=== PATIENT | male | born 1975 | race Caucasian/White ===

== ENCOUNTER 2020-09-18 07:53 | Outpatient (RCR) | payer OTHER, SELFPAY | END 2020-11-06 07:42 | disposition home or self-care (01) | LOC: HO.WCC 07:53 | PROVIDERS: Visit Provider Surgery | DX: T23.231A Burn of second degree of multiple right fingers (nail), not including thumb, initial encounter (principal); T31.0 Burns involving less than 10% of body surface; E11.9 Type 2 diabetes mellitus without complications; Z79.01 Long term (current) use of anticoagulants; Z79.84 Long term (current) use of oral hypoglycemic drugs; Z79.899 Other long term (current) drug therapy | CPT/HCPCS: 16020; 97597; 99202; 99212; 99213; 99214 ==

== ENCOUNTER 2021-01-06 08:08 | Outpatient (RCR) | payer OTHER, SELFPAY | END 2021-01-16 11:05 | disposition home or self-care (01) | LOC: HO.WCC 08:08 | PROVIDERS: Visit Provider Physician Assistant | DX: Z09 Encounter for follow-up examination after completed treatment for conditions other than malignant neoplasm (principal); I87.301 Chronic venous hypertension (idiopathic) without complications of right lower extremity; E11.40 Type 2 diabetes mellitus with diabetic neuropathy, unspecified; D68.62 Lupus anticoagulant syndrome; F17.210 Nicotine dependence, cigarettes, uncomplicated; Z89.512 Acquired absence of left leg below knee; Z89.421 Acquired absence of other right toe(s); Z89.021 Acquired absence of right finger(s); Z79.01 Long term (current) use of anticoagulants; Z86.718 Personal history of other venous thrombosis and embolism | CPT/HCPCS: 97597; 99212 ==

== ENCOUNTER 2022-03-03 13:04 | Outpatient (REF) | payer OTHER, SELFPAY ==
--- NOTE | ~2022-03-03 | MR_ITS ---
EXAMINATION: MRI FOOT WITHOUT AND WITH CONTRAST, RIGHT CLINICAL INFORMATION: Nonhealing wound. COMPARISON: Radiographs 01/28/2022. TECHNIQUE: MRI without and with intravenous administration of 10 mL of Gadavist is performed on the right foot on a 1.5 Olive MRI scanner. Image quality is degraded by patient motion artifact. FINDINGS: Postsurgical changes of transmetatarsal amputation. There is edema/enhancement of the stump with apparent ulceration distally. Soft tissue signal abnormality extends to the underlying 3rd metatarsal where there is a small erosion demonstrated on series 3, image 18, with underlying marrow edema and enhancement compatible with osteomyelitis. Marrow edema and enhancement of the distal 4th metatarsal is suspicious for osteomyelitis as well. Questionable minimal edema at the distal aspect of the 2nd metatarsal which is indeterminate. MR/MR foot RT wo/w con IMPRESSION: Probable soft tissue ulcer with underlying cellulitis at the stump with erosion and marrow changes compatible with osteomyelitis involving the distal 3rd metatarsal. Osteomyelitis is also suspected at the distal aspect of the 4th metatarsal. Cannot exclude mild osteomyelitis at the distal aspect of the 2nd metatarsal.
== END 2022-03-03 13:05 | disposition home or self-care (01) ==
LOC: HO.MRI 13:04
PROVIDERS: Visit Provider Physician Assistant
DX: E11.621 Type 2 diabetes mellitus with foot ulcer (principal); L97.512 Non-pressure chronic ulcer of other part of right foot with fat layer exposed
CPT/HCPCS: 73720; A9585

== ENCOUNTER → 2022-03-18 10:02 | Outpatient (BNVA) | payer OTHER, SELFPAY | PROVIDERS: Visit Provider Internal Medicine | DX: M86.9 Osteomyelitis, unspecified (principal); T87.89 Other complications of amputation stump; Z89.421 Acquired absence of other right toe(s) | CPT/HCPCS: 99202 ==

== ENCOUNTER 2022-03-31 11:29 | Outpatient (REF) | payer OTHER, SELFPAY ==
[2022-03-31 12:16] LABS: Hematocrit 50.9 % (42.0-52.0); Hemoglobin 16.5 g/dl (14.0-18.0); Mean Corpuscular HGB Conc 32.4 g/dl (31.0-36.0); Mean Corpuscular Hemoglobin 29.2 pg (27.0-33.0); Mean Corpuscular Volume 90.1 fL (80.0-98.0); Mean Platelet Volume 9.2 fL (9.4-12.4); Platelet Count 238 X10*3/uL (160-400); Red Blood Count 5.65 X10*6/uL (4.60-5.80); Red Cell Distribution Width 14.6 % (11.0-16.0); White Blood Count 9.3 X10*3/uL (4.8-10.8)
[2022-03-31 12:39] LABS: Alanine Aminotransferase 17 U/L (0-40); Alkaline Phosphatase 88 U/L (39-117); Aspartate Amino Transferase 13 U/L (5-37); Bilirubin Direct < 0.2 mg/dL (0.0-0.5); Bilirubin Total 0.4 mg/dL (0.0-1.0); Estimated Glomerular Filt Rate > 60; Total Protein 7.4 g/dL (6.5-8.0)
== END 2022-03-31 11:30 | disposition home or self-care (01) ==
LOC: HO.LAB 11:29
PROVIDERS: Visit Provider Internal Medicine
DX: M86.9 Osteomyelitis, unspecified (principal)
CPT/HCPCS: 36415; 80076; 82565; 85027

== ENCOUNTER 2022-04-02 07:56 | Outpatient (REF) | payer OTHER, SELFPAY | END 2022-04-02 07:57 | disposition home or self-care (01) | LOC: HO.MDS 07:56 | PROVIDERS: Visit Provider Internal Medicine | DX: Z45.2 Encounter for adjustment and management of vascular access device (principal); M86.9 Osteomyelitis, unspecified | CPT/HCPCS: 96365; J1335 ==

== ENCOUNTER 2022-04-02 08:02 | Outpatient (REF) | payer OTHER, SELFPAY ==
--- NOTE | 2022-04-02 11:56 | HO.PICC ---
PICC Line Insertion NPICC Diagnosis: Osteomyelitis right foot[] Indication: [usp antibiotics needed] Pertinent Labs: [reviewed] Technique: Following informed consent including risks, benefits and alternatives and using sterile technique including cap and mask, sterile gown, glove and drape, the [left] arm was prepped and draped in the usual sterile fashion of full barrier technique with CHG. Following completion of [place] Protocol the skin and soft tissues were anesthetized with 1% Lidocaine plain. Using ultrasound guidance, [left brachial] vein access was obtained twice by James Montez RN, but unable to pass guidewire. Left brachial vein access was obtained on second attempt by Lincoln Murillo RN. Over an 0.018 wire through peel-away sheath, a [5FR double lumen] PICC line was positioned. Catheter length is [50 CM] internal length, [0 CM] external length, for a total trimmed length of [50 CM]. The procedure was performed in [S272]. Tip verification was performed by Aggie Newby with Sherlock 3CG. Tip located in SVC. Ultrasound was used to document vein patency and for needle entry. A formal ultrasound picture and cardiac rhythm strip was recorded. [employer] has released the line for use and it is currently dressed with a StatLock, Tegaderm, and CHG disc. Verification has been performed for blood return and line patency. Arm Circumference: [33CM] Equipment: [Conjectur Power PICC Solo] Catheter Type: [5FR Double Lumen PICC] Lot #: [[id number]]
== END 2022-04-02 08:03 | disposition home or self-care (01) ==
LOC: HO.RADIR 08:02
PROVIDERS: Visit Provider Internal Medicine
DX: M86.9 Osteomyelitis, unspecified (principal)
CPT/HCPCS: 36573; C1751

== ENCOUNTER → 2022-04-08 10:04 | Outpatient (BNVA) | payer OTHER, SELFPAY | PROVIDERS: PCP Internal Medicine; Visit Provider Internal Medicine | DX: M86.9 Osteomyelitis, unspecified (principal) | CPT/HCPCS: 99212 ==

== ENCOUNTER 2022-04-10 16:25 | Outpatient (REF) | payer OTHER, SELFPAY ==
[2022-04-10 16:29] LABS: MANUAL DIFF FLAG NO
[2022-04-10 16:39] LABS: Basophils Absolute Auto 0.1 X10*3/uL (0.0-0.2); Eosinophils Absolute Auto 0.4 X10*3/uL (0.0-0.4); Eosinophils Percent Auto 3.7 % (0-4); Hematocrit 51.6 % (42.0-52.0); Hemoglobin 16.7 g/dl (14.0-18.0); Imm Gran Abs Auto 0.03 X10*3/uL (0.00-0.03); Imm Gran Pct Auto 0.3 % (0.0-0.4); Lymphocytes Absolute Auto 2.6 X10*3/uL (1.2-4.9); Lymphocytes Percent Auto 25.1 % (20-40); Mean Corpuscular HGB Conc 32.4 g/dl (31.0-36.0); Mean Corpuscular Hemoglobin 29.9 pg (27.0-33.0); Mean Corpuscular Volume 92.3 fL (80.0-98.0); Mean Platelet Volume 10.3 fL (9.4-12.4); Monocytes Absolute Auto 0.8 X10*3/uL (0.1-1.2); Monocytes Percent Auto 7.6 % (2-11); Neutrophils Absolute Auto 6.5 x10*3/uL (2.0-8.3); Neutrophils Percent Auto 62.3 % (45-73); Platelet Count 225 X10*3/uL (160-400); Red Blood Count 5.59 X10*6/uL (4.60-5.80); Red Cell Distribution Width 15.2 % (11.0-16.0); White Blood Count 10.5 X10*3/uL (4.8-10.8)
[2022-04-10 17:04] LABS: Blood Urea Nitrogen 16 mg/dL (9-16); Estimated Glomerular Filt Rate > 60
[2022-04-10 17:10] LABS: Erythrocyte Sedimentation Rate 19 MM/HR (0-15)
== END 2022-04-10 16:26 | disposition home or self-care (01) ==
LOC: HO.LNP 16:25
PROVIDERS: Visit Provider Internal Medicine
DX: M86.9 Osteomyelitis, unspecified (principal); T87.81 Dehiscence of amputation stump
CPT/HCPCS: 82565; 84520; 85025; 85652

== ENCOUNTER 2022-04-17 09:19 | Outpatient (REF) | payer OTHER, SELFPAY ==
[2022-04-17 09:26] LABS: MANUAL DIFF FLAG NO
[2022-04-17 09:30] LABS: Basophils Absolute Auto 0.1 X10*3/uL (0.0-0.2); Basophils Percent Auto 0.8 % (0-2); Eosinophils Absolute Auto 0.3 X10*3/uL (0.0-0.4); Eosinophils Percent Auto 3.8 % (0-4); Hematocrit 51.3 % (42.0-52.0); Hemoglobin 16.5 g/dl (14.0-18.0); Imm Gran Abs Auto 0.03 X10*3/uL (0.00-0.03); Imm Gran Pct Auto 0.3 % (0.0-0.4); Lymphocytes Absolute Auto 1.6 X10*3/uL (1.2-4.9); Lymphocytes Percent Auto 17.7 % (20-40); Mean Corpuscular HGB Conc 32.2 g/dl (31.0-36.0); Mean Corpuscular Hemoglobin 29.2 pg (27.0-33.0); Mean Corpuscular Volume 90.8 fL (80.0-98.0); Mean Platelet Volume 10.1 fL (9.4-12.4); Monocytes Absolute Auto 0.7 X10*3/uL (0.1-1.2); Monocytes Percent Auto 8.1 % (2-11); Neutrophils Absolute Auto 6.2 x10*3/uL (2.0-8.3); Neutrophils Percent Auto 69.3 % (45-73); Platelet Count 201 X10*3/uL (160-400); Red Blood Count 5.65 X10*6/uL (4.60-5.80); Red Cell Distribution Width 14.6 % (11.0-16.0); White Blood Count 8.9 X10*3/uL (4.8-10.8)
[2022-04-17 10:21] LABS: Erythrocyte Sedimentation Rate 19 MM/HR (0-15)
[2022-04-17 10:27] LABS: Blood Urea Nitrogen 15 mg/dL (9-16); Estimated Glomerular Filt Rate > 60
== END 2022-04-17 09:20 | disposition home or self-care (01) ==
LOC: HO.LNP 09:19
PROVIDERS: Visit Provider Internal Medicine
DX: M86.9 Osteomyelitis, unspecified (principal)
CPT/HCPCS: 82565; 84520; 85025; 85652

== ENCOUNTER → 2022-04-22 10:14 | Outpatient (BNVA) | payer OTHER, SELFPAY | PROVIDERS: Visit Provider Internal Medicine | DX: M86.9 Osteomyelitis, unspecified (principal) | CPT/HCPCS: 99212 ==

== ENCOUNTER 2022-04-24 15:40 | Outpatient (REF) | payer OTHER, SELFPAY ==
[2022-04-24 15:44] LABS: MANUAL DIFF FLAG NO
[2022-04-24 15:47] LABS: Basophils Absolute Auto 0.1 X10*3/uL (0.0-0.2); Basophils Percent Auto 0.6 % (0-2); Eosinophils Absolute Auto 0.4 X10*3/uL (0.0-0.4); Eosinophils Percent Auto 4.2 % (0-4); Hematocrit 49.5 % (42.0-52.0); Hemoglobin 15.9 g/dl (14.0-18.0); Imm Gran Abs Auto 0.02 X10*3/uL (0.00-0.03); Imm Gran Pct Auto 0.2 % (0.0-0.4); Lymphocytes Absolute Auto 1.7 X10*3/uL (1.2-4.9); Lymphocytes Percent Auto 20.6 % (20-40); Mean Corpuscular HGB Conc 32.1 g/dl (31.0-36.0); Mean Corpuscular Hemoglobin 29.2 pg (27.0-33.0); Mean Corpuscular Volume 90.8 fL (80.0-98.0); Mean Platelet Volume 9.9 fL (9.4-12.4); Monocytes Absolute Auto 0.7 X10*3/uL (0.1-1.2); Monocytes Percent Auto 8.6 % (2-11); Neutrophils Absolute Auto 5.5 x10*3/uL (2.0-8.3); Neutrophils Percent Auto 65.8 % (45-73); Platelet Count 212 X10*3/uL (160-400); Red Blood Count 5.45 X10*6/uL (4.60-5.80); Red Cell Distribution Width 14.9 % (11.0-16.0); White Blood Count 8.3 X10*3/uL (4.8-10.8)
[2022-04-24 16:25] LABS: Blood Urea Nitrogen 18 mg/dL (9-16); Estimated Glomerular Filt Rate > 60
[2022-04-24 16:45] LABS: Erythrocyte Sedimentation Rate 15 MM/HR (0-15)
== END 2022-04-24 15:41 | disposition home or self-care (01) ==
LOC: HO.HVNA 15:40
PROVIDERS: Visit Provider Internal Medicine
DX: M86.9 Osteomyelitis, unspecified (principal)
CPT/HCPCS: 36415; 82565; 84520; 85025; 85652

== ENCOUNTER 2022-05-01 12:47 | Outpatient (REF) | payer OTHER, SELFPAY ==
[2022-05-01 12:54] LABS: MANUAL DIFF FLAG NO
[2022-05-01 12:57] LABS: Basophils Absolute Auto 0.1 X10*3/uL (0.0-0.2); Basophils Percent Auto 0.6 % (0-2); Eosinophils Absolute Auto 0.3 X10*3/uL (0.0-0.4); Eosinophils Percent Auto 4.3 % (0-4); Hematocrit 50.6 % (42.0-52.0); Hemoglobin 16.4 g/dl (14.0-18.0); Imm Gran Abs Auto 0.02 X10*3/uL (0.00-0.03); Imm Gran Pct Auto 0.3 % (0.0-0.4); Lymphocytes Absolute Auto 1.6 X10*3/uL (1.2-4.9); Lymphocytes Percent Auto 20.1 % (20-40); Mean Corpuscular HGB Conc 32.4 g/dl (31.0-36.0); Mean Corpuscular Hemoglobin 29.3 pg (27.0-33.0); Mean Corpuscular Volume 90.4 fL (80.0-98.0); Mean Platelet Volume 10.2 fL (9.4-12.4); Monocytes Absolute Auto 0.7 X10*3/uL (0.1-1.2); Monocytes Percent Auto 8.9 % (2-11); Neutrophils Absolute Auto 5.2 x10*3/uL (2.0-8.3); Neutrophils Percent Auto 65.8 % (45-73); Platelet Count 205 X10*3/uL (160-400); Red Cell Distribution Width 14.9 % (11.0-16.0); White Blood Count 7.9 X10*3/uL (4.8-10.8)
[2022-05-01 13:38] LABS: Erythrocyte Sedimentation Rate 17 MM/HR (0-15)
[2022-05-01 13:40] LABS: Blood Urea Nitrogen 14 mg/dL (9-16); Estimated Glomerular Filt Rate > 60
== END 2022-05-01 12:48 | disposition home or self-care (01) ==
LOC: HO.HVNA 12:47
PROVIDERS: Visit Provider Internal Medicine
DX: M86.9 Osteomyelitis, unspecified (principal)
CPT/HCPCS: 36415; 82565; 84520; 85025; 85652

== ENCOUNTER → 2022-05-04 10:31 | Outpatient (BNVA) | payer OTHER, SELFPAY | PROVIDERS: Visit Provider Internal Medicine | DX: M86.9 Osteomyelitis, unspecified (principal) | CPT/HCPCS: 99212 ==

== ENCOUNTER 2022-05-08 15:33 | Outpatient (REF) | payer OTHER, SELFPAY ==
[2022-05-08 15:37] LABS: MANUAL DIFF FLAG NO
[2022-05-08 15:51] LABS: Basophils Absolute Auto 0.1 X10*3/uL (0.0-0.2); Basophils Percent Auto 0.9 % (0-2); Eosinophils Absolute Auto 0.3 X10*3/uL (0.0-0.4); Eosinophils Percent Auto 3.5 % (0-4); Hematocrit 51.6 % (42.0-52.0); Hemoglobin 16.3 g/dl (14.0-18.0); Imm Gran Abs Auto 0.02 X10*3/uL (0.00-0.03); Imm Gran Pct Auto 0.2 % (0.0-0.4); Lymphocytes Absolute Auto 1.9 X10*3/uL (1.2-4.9); Lymphocytes Percent Auto 22.2 % (20-40); Mean Corpuscular HGB Conc 31.6 g/dl (31.0-36.0); Mean Corpuscular Hemoglobin 29.1 pg (27.0-33.0); Mean Platelet Volume 10.3 fL (9.4-12.4); Monocytes Absolute Auto 0.7 X10*3/uL (0.1-1.2); Monocytes Percent Auto 8.1 % (2-11); Neutrophils Absolute Auto 5.6 x10*3/uL (2.0-8.3); Neutrophils Percent Auto 65.1 % (45-73); Platelet Count 194 X10*3/uL (160-400); Red Blood Count 5.61 X10*6/uL (4.60-5.80); Red Cell Distribution Width 14.8 % (11.0-16.0); White Blood Count 8.5 X10*3/uL (4.8-10.8)
[2022-05-08 16:03] LABS: Blood Urea Nitrogen 12 mg/dL (9-16); Estimated Glomerular Filt Rate > 60
[2022-05-08 16:49] LABS: Erythrocyte Sedimentation Rate 14 MM/HR (0-15)
== END 2022-05-08 15:34 | disposition home or self-care (01) ==
LOC: HO.HVNA 15:33
PROVIDERS: Visit Provider Internal Medicine
DX: T87.81 Dehiscence of amputation stump (principal)
CPT/HCPCS: 36415; 82565; 84520; 85025; 85652

== ENCOUNTER → 2022-05-25 13:02 | Outpatient (BNVA) | payer OTHER, SELFPAY | PROVIDERS: Visit Provider Internal Medicine | DX: M86.9 Osteomyelitis, unspecified (principal) | CPT/HCPCS: 99212 ==

== ENCOUNTER 2023-01-19 08:11 | Inpatient (IN) | payer OTHER, SELFPAY ==
[2023-01-19] VITALS (8 sets, daily range): BP systolic 113–144; BP diastolic 56–74; PULSE 81–101; RESP 17–20; TEMP 36.8–38; O2SAT 93–100; BMI 39.1
--- NOTE | ~2023-01-19 | CT_ITS ---
EXAMINATION: CT CERVICAL SPINE WITH CONTRAST CLINICAL INFORMATION: Bacteremia. Evaluate for infection. COMPARISON: There are no prior studies available for comparison at time of dictation. TECHNIQUE: A postcontrast axial CT scan of the cervical spine was obtained. Coronal and sagittal reformatted images were generated at the acquisition workstation. Intravenous contrast: 80 mL of Omnipaque 350. This CT examination was performed using dose optimization techniques as appropriate, variously including the following: *Automated exposure control *Adjustment of mA and/or kV according to patient size (this includes techniques or standardized protocols for targeted exams where dose is matched to indication/reason for exam; i.e. extremities or head) *Use of iterative reconstruction technique DLP: 891 mGy-cm FINDINGS: VERTEBRAL BODIES AND PARASPINAL SOFT TISSUES: There is reversal of the cervical lordosis at C5-C6. There are sequelae of ACDF procedures at C4-C5, C5-C6 and C6-C7. There is good osseous fusion at the intervertebral disc devices at these levels. Vertebral body heights are maintained, and no fractures are demonstrated. There are extensive marginal osteophytes anteriorly at C2 through C4. The paravertebral soft tissues are unremarkable. The thyroid gland is normal in size. The visualized lung apices are well-aerated. The prevertebral soft tissues are unremarkable. There is no abnormal enhancement in the paravertebral soft tissues. SPINAL LEVELS: There is no abnormal epidural enhancement. C2-C3: The facet joints appear normal bilaterally. There is mild ossification of the posterior longitudinal ligament. There is a broad-based posterior disc protrusion without spinal cord compression or central stenosis. The neural foramina appear patent bilaterally. C3-C4: The facet joints appear normal. There is a small right paracentral osteophytic spur which distorts the ventral thecal sac and may have mild mass effect on the spinal cord. There is mild central stenosis. There are uncovertebral osteophytes and there is moderate right and mild left foraminal narrowing. C4-C5: There is mild right facet arthropathy. Posterior vertebral body contours appear normal, but there is mild distortion of the ventral thecal sac without significant central stenosis. There are uncovertebral osteophytes and there is severe right and moderate left foraminal narrowing. C5-C6: There is mild left facet arthropathy. There is a posterior disc osteophyte complex with a prominent spur to the right of midline which likely has some mass effect on the ventral thecal sac. There is mild to moderate central stenosis. There are uncovertebral osteophytes and there is mild bilateral foraminal narrowing. C6-C7: The facet joints appear normal. There is a posterior disc osteophyte complex which is most prominent on the left with distortion of the ventral thecal sac, and there may be some mass effect on the spinal cord. There is mild central stenosis. There are uncovertebral osteophytes and there is moderate bilateral foraminal narrowing. C7-T1: The facet joints appear normal. There is a posterior disc osteophyte complex which is most prominent to the right of midline but there is no cord compression or central stenosis. There are uncovertebral osteophytes and there is severe left and mild right foraminal narrowing. CT/CT cervical spine w IV con IMPRESSION: 1. There are sequelae of ACDF procedures at C4-C5, C5-C6 and C6-C7. There is good osseous fusion of the intervertebral disc devices at these levels. There is no abnormal epidural enhancement. 2. There are no acute fractures or subluxations. There is multilevel spondylosis and facet arthropathy contributing to central stenosis and foraminal narrowing. 3. There is no abnormal enhancement in the paravertebral soft tissues or within the spinal canal. 4. There is severe right and moderate left foraminal narrowing at C4-C5. 5. At C5-C6 there is a posterior disc osteophyte complex with a prominent spur to the right of midline. There is mild to moderate central stenosis. There is mild bilateral foraminal narrowing. 6. At C6-C7 there is a posterior disc osteophyte complex which is most prominent on the left. There may be some mass effect on the spinal cord. There is mild central stenosis. There is moderate bilateral foraminal narrowing. 7. At C7-T1 there is a posterior disc osteophyte complex which is most prominent to the right of midline but there is no central stenosis or cord compression. There is severe left and mild right foraminal narrowing.
--- NOTE | ~2023-01-19 | XR_ITS ---
EXAMINATION: XR FOOT, RIGHT CLINICAL INFORMATION: Wound. Concern for osteomyelitis. COMPARISON: 01/28/2022 TECHNIQUE: AP, lateral, and oblique views of the right foot. FINDINGS: Status post transmetatarsal amputation. Soft tissue swelling at the stump with gas noted. There is irregularity of the lateral remaining metatarsals, concerning for progressive erosion when compared to prior. Prominent heel spurs. XR/XR foot RT 2V IMPRESSION: Status post transmetatarsal amputation with soft tissue swelling and gas. Irregularity of the lateral remaining metatarsals is concerning for progressive erosion when compared to prior. This could be associated with osteomyelitis.
--- NOTE | 2023-01-19 08:39 | ED_ITS ---
HPI - General Adult General Chief complaint: Wound/Laceration Stated complaint: Dizziness/Body aches/Chills Time Seen by Provider: 01/19/23 08:38 Source: patient Mode of arrival: ambulatory Limitations: no limitations History of Present Illness HPI narrative: Patient is a 47 year old assigned male at with a history of diabetes, left BTK amputation, a right foot amputation, and a chronic non-healing right foot stump wound presenting to the emergency department today feeling generally unwell. Patient states that he has had intermittent fevers and body aches for the last few days. Patient states that he follows with our wound center for this wound and they are currently doing wet to dry dressing changes. Patient states that he has not been on antibiotics for this for awhile. Patient denies any current dizziness, lightheadedness, abdominal pain, nausea, vomiting, blurry vision, double vision, loss of vision, chest pain, difficulty breathing, shortness of breath, back pain, night sweats, pain with urination, increased urinary frequency, increased urinary urgency, blood in his urine or stool, syncope or a near syncopal episode, recent trauma or falls, bowel incontinence, bladder incontinence, bowel retention, bladder retention, or any other complaints at this time. Onset (ago): day(s) Location: right and lower extremity Radiation: non-radiation Severity: moderate Severity scale (1-10): 4 Relieving factors: none Exacerbating factors: none Associated symptoms: fever/chills Treatments prior to arrival: none Related Data Home Medications Medication Instructions Recorded Confirmed albuterol sulfate 90 mcg/actuation 1 inh inhalation QID 03/18/22 01/19/23 aerosol inhaler amlodipine 10 mg tablet 10 mg PO BEDTIME 03/18/22 01/19/23 dulaglutide 4.5 mg/0.5 mL 4.5 mg subcut WE 03/18/22 01/19/23 subcutaneous pen injector ([facility]) fenofibrate micronized 134 mg 134 mg PO DAILY 03/18/22 01/19/23 capsule insulin degludec 100 unit/mL (3 80 unit subcut BID 03/18/22 01/19/23 mL) subcutaneous pen (Tresiba FlexTouch U-100 insulin) lisinopril 40 mg tablet 40 mg PO BEDTIME 03/18/22 01/19/23 metformin 1,000 mg tablet 1,000 mg PO DAILY 03/18/22 01/19/23 montelukast 10 mg tablet 10 mg PO BEDTIME 03/18/22 01/19/23 rosuvastatin 20 mg tablet 20 mg PO BEDTIME 03/18/22 01/19/23 warfarin 10 mg tablet 10 mg PO MOWE@1800 03/18/22 01/19/23 insulin aspart U-100 100 unit/mL 0 sliding scale dose subcut TID 01/19/23 01/19/23 (3 mL) subcutaneous pen (Novolog FlexPen U-100 Insulin aspart) warfarin 10 mg tablet 15 mg PO SUTUTHFRSA@1800 01/19/23 01/19/23 Allergies Allergy/AdvReac Type Severity Reaction Status Date / Time No Known Allergies Allergy Verified 05/25/22 13:07 Review of Systems Constitutional: Constitutional: Reports no additional constitutional complaints, Reports body ache(s), Reports chills, Reports fever(s) and Denies ni ght sweats Eyes: Eyes: Reports no additional eye complaints, Denies blurry vision, Denies change in vision, Denies diplopia, Denies eye discharge, Denies loss of vision and Denies eye pain ENT: Denies dizziness Cardiovascular: Cardiovascular: Reports no additional cardiovascular complaints, Denies chest pain, Denies lightheadedness, Denies Loss of Consciousness and Denies dyspnea Respiratory: Respiratory: Reports no additional respiratory complaints and Denies dyspnea Gastrointestinal: Gastrointestinal: Reports no additional gastrointestinal complaints, Denies abdominal pain, Denies melena, Denies hematochezia, Denies change in bowel habits and Denies change in stool character Genitourinary: Genitourinary: Reports no additional male genitourinary complaints, Denies hematuria, Denies oliguria, Denies difficulty urinating, Denies dysuria, Denies urinary frequency, Denies urinary hesitancy, Denies urinary incontinence and Denies urinary urgency Musculoskeletal: Musculoskeletal: Reports no additional musculoskeletal complaints, Denies numbness and Denies tingling Comments: status post left BTK amputation of the left, status post foot amputation on the right with chronic non-healing wound Neurologic: Denies dizziness, Denies loss of vision, Denies numbness and Denies tingling Psychiatric: Psychiatric: Reports no additional psychiatric complaints Endocrine: Endocrine: Reports no additional endocrine complaints Hematologic/Lymphatic: Hematologic/Lymphatic: Reports no additional hematolo gic/lymphatic complaints Allergic/Immunologic: Allergic/Immunologic: Reports no additional allergic/immunologic complaints [facility] Past Medical History Attestation statement: The following information was validated with the patient. Source: old records reviewed and nursing notes reviewed Medical History Amputated finger Amputated toe of right foot Diabetes High cholesterol Hypertension Osteomyelitis Surgical History History of neck surgery Social History Social History Alcohol intake: never Smoked in Last 30 Days: Yes Use of substances other than those prescribed or required for medical reasons: No Advance Directives: No Advance Directives Information Provided: Yes Physical Exam ED Vital Signs: Vital Signs - 24 hr 01/19/23 08:27 01/19/23 09:16 01/19/23 10:49 Temperature 100.1 F 100.4 F 99.3 F Pulse Rate 101 H 97 86 Respiratory Rate 20 20 20 Blood Pressure 144/65 H 113/56 L 116/67 Pulse Oximetry 100 94 100 Oxygen Delivery Method Room Air Room Air Room Air 01/19/23 11:15 01/19/23 12:23 Temperature 99.2 F 98.3 F Pulse Rate 82 81 Respiratory Rate 18 20 Blood Pressure 114/65 136/68 Pulse Oximetry 96 93 Oxygen Delivery Method Room Air Room Air BMI result Body Mass Index 39.1 Const General: cooperative, no acute distress, alert and awake Nutritional Appearance: well nourished Orientation/consciousness: patient oriented x3 Limitations: no limitations [facility] Head: Yes normal to inspection and Yes atraumatic Ears: hearing grossly normal bilaterally and external ears normal General nose exam: Normal external nose present, no nasal discharge noted and no epistaxis Face and sinus: Yes normal facial exam, No abrasion and No laceration Mouth: Normal oral and palatal mucosa present, no drooling and no muffled voice Eyes General: appearance normal, both eyes and all related structures Periorbital: periorbital findings normal Eyelids: Yes eyelids normal Conjunctivae: conjunctivae normal Pupils: Equal, round and reactive pupils present EOM: EOMs intact bilaterally Neck Neck: Yes normal visual inspection, Yes full ROM and Yes no lymphadenopathy Chest Chest palpation & inspection: normal inspection of the chest Resp Effort & Inspection: normal respiratory effort and able to speak in complete sentences Auscultation: clear to auscultation bilaterally Cardio Rate: tachycardic Rhythm: regular rhythm GI Inspection: Yes normal to inspection Palpation (GI): Soft to palpation, not firm, nontender and no guarding Neuro General: patient oriented x3 and moves all extremities Cranial nerves: Yes Equal, round and reactive pupils present Cognition (Neuro): normal cognition Motor exam (neuro): 5/5 motor strength present throughout Sensory Exam: Normal double simultaneous stimulation for sensation Coordination: [id number] test normal Extrem Other: left BTK amputation, right foot amputation with chronic wound as pictured General: Yes capillary refill normal Psych Appearance: grossly normal Mental Status: mental status grossly normal Affect: normal affect Attitude: cooperative Thought process: Normal thought process present Thought content: Normal thought content present Insight: Good insight present (Psych) Medications Administered Discontinued Medications Generic Name Dose Route Start Last Admin Trade Name Freq PRN Reason Stop Dose Admin Acetaminophen 975 mg 01/19/23 08:41 01/19/23 09:34 Acetaminophen 325 Mg Tablet PO 01/19/23 08:42 975 mg ONCE ONE Administration Ceftriaxone Sodium 1 gm/ 50 mls @ 100 mls/hr 01/19/23 08:39 01/19/23 10:04 Sodium Chloride IV 01/19/23 09:08 Infused ONCE ONE Infusion Sodium Chloride 2,673 mls @ 2,673 mls/hr 01/19/23 08:55 01/19/23 10:48 Ns IV 01/19/23 09:54 Infused .Q1H STA Infusion Piperacillin Sod/Tazobactam 50 mls @ 100 mls/hr 01/19/23 11:13 01/19/23 12:09 Sod 3.375 gm/ Sodium Chloride IV 01/19/23 11:42 Infused ONCE ONE Infusion Vancomycin HCl 2,000 mg in 520 mls @ 260 mls/hr 01/19/23 11:30 01/19/23 12:49 Vancomycin/Ns IV 01/19/23 13:29 260 mls/hr ONCE ONE Administration Morphine Sulfate 4 mg 01/19/23 10:58 01/19/23 11:39 Morphine Sulfate 4 Mg/Ml Cartridge IVPUSH 01/19/23 10:59 4 mg ONCE ONE Administration Protocol Medical Decision Making Medical Decision Making MDM Narrative: Patient is a 47 year old assigned male at with a history of diabetes, left BTK amputation, and right mid foot amputation with chronic non-healing wound presenting to the emergency department today feeling generally unwell. Patient's physical exam was as pictured earlier in this chart. Patient was tachycardic, febrile, and clinically unwell. Patient's blood work showed an ESR of 77, NA of 128, calcium of 7.8, and CRP of 27.18. Patient's right foot x-ray showed progressive erosion consistent with osteomyelitis. Patient's clinical pr esentation is concerning for sepsis secondary to osteomyelitis. Patient was given broad spectrum antibiotics. Patient was given IV fluids per his ideal body weight given his BMI is greater than 30 kg/m2. I spoke to the hospitalist who agreed to admission. I explained my physical exam findings as well as all test results to the patient. I answered all questions asked by the patient. Patient verbalized agreement and understanding with this treatment plan and admission. Differential Diagnosis Differential Diagnoses: The differential diagnosis associated with the presentation includes sepsis, osteomyelitis Consult Healthcare Provider Management of the patient was discussed with: Hospitalist (agreed to admission) Lab Data [facility] Lab Attestation statement: I reviewed the patient's lab results. 01/19/23 08:56 01/19/23 08:56 Labs: Lab Results 01/19/23 01/19/23 01/19/23 Range/Units 08:56 08:56 08:56 WBC 10.5 (4.8-10.8) X10*3/uL RBC 4.70 (4.60-5.80) X10*6/uL Hgb 14.0 (14.0-18.0) g/dl Hct 40.8 L D (42.0-52.0) % MCV 86.8 (80.0-98.0) fL MCH 29.8 (27.0-33.0) pg MCHC 34.3 (31.0-36.0) g/dl RDW 13.8 (11.0-16.0) % Plt Count 216 (160-400) X10*3/uL MPV 9.5 (9.4-12.4) fL Immature Gran % (Auto) 0.4 (0.0-0.4) % Neut % (Auto) 80.7 H (45-73) % Lymph % (Auto) 6.8 L (20-40) % [place] % (Auto) 11.6 H (2-11) % Eos % (Auto) 0.1 (0-4) % Baso % (Auto) 0.4 (0-2) % Lymph # (Auto) 0.7 L (1.2-4.9) X10*3/uL [place] # (Auto) 1.2 (0.1-1.2) X10*3/uL Eos # (Auto) 0.0 (0.0-0.4) X10*3/uL Baso # (Auto) 0.0 (0.0-0.2) X10*3/uL Abs Immat Gran (auto) 0.04 H (0.00-0.03) X10*3/uL Absolute Neuts (auto) 8.5 H (2.0-8.3) x10*3/uL Absolute Nucleated RBC 0.000 (0.0-0.012) X10*3/uL Nucleated RBC % (auto) 0.0 (0.0-0.2) /100WBC ESR (0-15) MM/HR PT 31.8 H (10.0-13.1) SEC INR 2.7 H (0.9-1.1) Sodium 128 L (135-145) mmol/L Potassium 3.9 (3.3-5.1) mmol/L Chloride 97 (96-108) mmol/L Carbon Dioxide 21 L (22-29) mmol/L Anion Gap 14 (12-20) BUN 14 (9-16) mg/dL Creatinine 0.91 (0.5-1.4) mg/dL Estim Creat Clear Calc 159.1 Estimated GFR > 60 Random Glucose 120 H (60-115) mg/dL Lactic Acid (0.5-2.0) mmol/L Calcium 7.8 L D (8.4-10.2) mg/dL Total Bilirubin 0.7 (0.0-1.0) mg/dL AST 41 H (5-37) U/L ALT 33 (0-40) U/L Alkaline Phosphatase 77 (39-117) U/L C-Reactive Protein 27.18 H (< or = 0.50) mg/dL Total Protein 6.6 (6.5-8.0) g/dL Albumin 3.5 (3.5-5.0) g/dL Influenza Type A (PCR) (Negative) Influenza Type B (PCR) (Negative) RSV RNA Qual (PCR) (Negative) SARS-CoV-2 RNA (RT-PCR) (Negative) 01/19/23 01/19/23 01/19/23 Range/Units 08:56 08:56 08:59 WBC (4.8-10.8) X10*3/uL RBC (4.60-5.80) X10*6/uL Hgb (14.0-18.0) g/dl Hct (42.0-52.0) % MCV (80.0-98.0) fL MCH (27.0-33.0) pg MCHC (31.0-36.0) g/dl RDW (11.0-16.0) % Plt Count (160-400) X10*3/uL MPV (9.4-12.4) fL Immature Gran % (Auto) (0.0-0.4) % Neut % (Auto) (45-73) % Lymph % (Auto) (20-40) % [place] % (Auto) (2-11) % Eos % (Auto) (0-4) % Baso % (Auto) (0-2) % Lymph # (Auto) (1.2-4.9) X10*3/uL [place] # (Auto) (0.1-1.2) X10*3/uL Eos # (Auto) (0.0-0.4) X10*3/uL Baso # (Auto) (0.0-0.2) X10*3/uL Abs Immat Gran (auto) (0.00-0.03) X10*3/uL Absolute Neuts (auto) (2.0-8.3) x10*3/uL Absolute Nucleated RBC (0.0-0.012) X10*3/uL Nucleated RBC % (auto) (0.0-0.2) /100WBC ESR 77 H (0-15) MM/HR PT (10.0-13.1) SEC INR (0.9-1.1) Sodium (135-145) mmol/L Potassium (3.3-5.1) mmol/L Chloride (96-108) mmol/L Carbon Dioxide (22-29) mmol/L Anion Gap (12-20) BUN (9-16) mg/dL Creatinine (0.5-1.4) mg/dL Estim Creat Clear Calc Estimated GFR Random Glucose (60-115) mg/dL Lactic Acid 0.9 (0.5-2.0) mmol/L Calcium (8.4-10.2) mg/dL Total Bilirubin (0.0-1.0) mg/dL AST (5-37) U/L ALT (0-40) U/L Alkaline Phosphatase (39-117) U/L C-Reactive Protein (< or = 0.50) mg/dL Total Protein (6.5-8.0) g/dL Albumin (3.5-5.0) g/dL Influenza Type A (PCR) NEGATIVE (Negative) Influenza Type B (PCR) NEGATIVE (Negative) RSV RNA Qual (PCR) NEGATIVE (Negative) SARS-CoV-2 RNA (RT-PCR) NEGATIVE (Negative) Independent Interpretation I performed an independent interpretation of an: Plain X-Ray Interpretation: My interpretation is in agreement with the radiologist's impression of this imaging study. EXAMINATION: XR FOOT, RIGHT CLINICAL INFORMATION: Wound. Concern for osteomyelitis.? COMPARISON: 01/28/2022? TECHNIQUE: AP, lateral, and oblique views of the right foot. FINDINGS: Status post transmetatarsal amputation. Soft tissue swelling at the stump with gas noted. There is irregularity of the lateral remaining metatarsals, concerning for progressive erosion when compared to prior. Prominent heel spurs.? XR/XR foot RT 2V IMPRESSION: Status post transmetatarsal amputation with soft tissue swelling and gas. Irregularity of the lateral remaining metatarsals is concerning for progressive erosion when compared to prior. This could be associated with osteomyelitis. ? Dictated By: Ajith Mora MD Signed By: Electronically signed by Ajith Mora MD 01/19/23 1006 Chronic Conditions Patient?s care impacted by: Diabetes Critical Care Time Critical Care Time Critical Care Time: Yes Total Critical Care Time: 45 Attestation: I spent 45 minutes of Critical Care Time with this patient. This does not include time spent on separately reported billable procedures. Discharge Plan Discharge Clinical Impression: Osteomyelitis, Sepsis Patient Disposition: Admitted As Inpatient
[2023-01-19 09:16] LABS: MANUAL DIFF FLAG NO
[2023-01-19 09:17] LABS: Basophils Percent Auto 0.4 % (0-2); Eosinophils Percent Auto 0.1 % (0-4); Hematocrit 40.8 % (42.0-52.0); Imm Gran Abs Auto 0.04 X10*3/uL (0.00-0.03); Imm Gran Pct Auto 0.4 % (0.0-0.4); Lymphocytes Absolute Auto 0.7 X10*3/uL (1.2-4.9); Lymphocytes Percent Auto 6.8 % (20-40); Mean Corpuscular HGB Conc 34.3 g/dl (31.0-36.0); Mean Corpuscular Hemoglobin 29.8 pg (27.0-33.0); Mean Corpuscular Volume 86.8 fL (80.0-98.0); Mean Platelet Volume 9.5 fL (9.4-12.4); Monocytes Absolute Auto 1.2 X10*3/uL (0.1-1.2); Monocytes Percent Auto 11.6 % (2-11); Neutrophils Absolute Auto 8.5 x10*3/uL (2.0-8.3); Neutrophils Percent Auto 80.7 % (45-73); Platelet Count 216 X10*3/uL (160-400); Red Cell Distribution Width 13.8 % (11.0-16.0); White Blood Count 10.5 X10*3/uL (4.8-10.8)
[2023-01-19] MEDS: 0.9 % Sodium Chloride 2,673 ML 2673 ML IV (09:22)
[2023-01-19 09:24] LABS: INTERNATIONAL NORM RATIO 2.7 (0.9-1.1); Prothrombin Time 31.8 SEC (10.0-13.1)
--- NOTE | 2023-01-19 09:27 | PHA.MEDREC ---
Pharmacy Consult ? Medication Reconciliation Pharmacy has completed the medication reconciliation. Interviewed patient
[2023-01-19 09:29] LABS: Lactic Acid 0.9 mmol/L (0.5-2.0)
[2023-01-19 09:32] LABS: Anion Gap 14 (12-20); Blood Urea Nitrogen 14 mg/dL (9-16); Carbon Dioxide 21 mmol/L (22-29); Chloride 97 mmol/L (96-108); Potassium 3.9 mmol/L (3.3-5.1); Sodium 128 mmol/L (135-145)
[2023-01-19 09:33] LABS: Alanine Aminotransferase 33 U/L (0-40); Albumin Level 3.5 g/dL (3.5-5.0); Alkaline Phosphatase 77 U/L (39-117); Aspartate Amino Transferase 41 U/L (5-37); Bilirubin Total 0.7 mg/dL (0.0-1.0); Calcium 7.8 mg/dL (8.4-10.2); Creatinine Clr Calc Pharmacy 159.1; Estimated Glomerular Filt Rate > 60; Glucose Random 120 mg/dL (60-115); Total Protein 6.6 g/dL (6.5-8.0)
[2023-01-19] MEDS: Acetaminophen 325 MG TABLET 975 MG PO (09:34)
[2023-01-19] MEDS: cefTRIAXone sodium 1 GM in 0.9 % Sodium Chloride 50 ML IV (09:34)
--- NOTE | 2023-01-19 09:43 | PC.NURSE ---
patient a&ox3, vss, pt wound rt foot being seen by wound clinic-pictures taken by provider for chart, pt bilateral arm ivs inserted, all labs drawn, nasal swabs obtained, ivf running per order, abx running per order, pt medicated with tylenol for fever, pt c/o 10/10 neck pain as well, call french within reach, will continue to monitor.
[2023-01-19 09:57] LABS: Influenza A PCR NEGATIVE (Negative); Influenza B PCR NEGATIVE (Negative); Resp Syncy Virus RNA Qual PCR NEGATIVE (Negative); SARS COV2 PCR INHOUSE NEGATIVE (Negative)
--- NOTE | 2023-01-19 10:50 | PC.NURSE ---
patient a&ox3, ivf have now completed, 1st set of sepsis vitals obtained-vss, pt continues to c/o neck pain, will notify provider, awaiting dakins order to dress Rt foot, call french within reach, will continue to monitor.
[2023-01-19 11:00] LABS: C Reactive Protein 27.18 mg/dL (< or = 0.50)
[2023-01-19] MEDS: Morphine Sulfate 4 MG/ML CARTRIDGE IVPUSH (11:39)
[2023-01-19] MEDS: Piperacillin Sodium/Tazobactam 3.375 GM in 0.9 % Sodium Chloride 50 ML IV ×2 (11:39→18:03)
--- NOTE | 2023-01-19 11:40 | PC.NURSE ---
patient a&ox3, vitals continue to be stable, pt medicated for pain, additional abx given per order, called pharmacy for dakins will do dressing when it arrives, call french within reach, will continue to monitor
--- NOTE | 2023-01-19 11:46 | P.HPHOSP_ITS ---
History of Present Illness Date of Service: 01/19/23 Attending physician on admission: Suly Jernigan Chief Complaint: Worsening chronic wound of right foot Pt is a 47-year-old male with a PMH significant for?insulin-dependent diabetes, left BKA, right foot transmetatarsal amputation, chronic nonhealing wound of right stump, HTN, HLD, lupus anticoagulant on warfarin, and asthma who presents to the ED with?worsening chronic wound of right foot. Patient is [facility] by [facility]. Patient states that visiting nurse came yesterday to change dressing and noted that his wound looked better than normal. Last night patient developed chills, lightheadedness, and diarrhea. Pt also had flu-like muscle aches in his lower back and arms. Pt woke with morning feeling worse and with severe neck pain. Pt has a history of two neck surgeries and an artificial disc; states he has never had such severe neck pain in the past. Pt denies chest pain/pressure, palpitations. No SOB. Denies fever, nausea, vomiting. No abdominal pain. Patient states that he has not been on IV antibiotics for over 1 year, and it has been many months since last on oral antibiotics for UTI. In the ED patient was slightly tachycardic at 101 and slightly febrile at 100.4. Labs were significant for WBC WNL, INR 2.7, sodium 128, C-reactive protein 27.18, and ESR 77. XR of foot showed soft tissue swelling and gas, with an irregularity of the lateral metatarsals concerning for progressive erosion associated with osteomyelitis. Pt was treated with ceftriaxone, morphine, vanco and Zosyn, and 30 milligram/kilogram sepsis fluids. Pt will be admitted to the hospital for treatment and further evaluation of osteomyelitis of chronic wound in right foot. Review of Systems Review of Systems: Chills Lightheadedness Severe neck pain Myalgias Diarrhea Denies chest pain/pressure, palpitations No shortness of breath Yes all other systems are reviewed and are negative [facility] Medical History Amputated finger Amputated toe of right foot Diabetes High cholesterol Hypertension Osteomyelitis Surgical History History of neck surgery Social History Household Members: Family Housing: House Do you presently have visiting nurse or other home services: Yes ([facility]) Alcohol intake: never Patient Tobacco Use Status: Current everyday Tobacco user Tobacco use type: Cigarette Cigarettes Per Day: 2 Smoked in Last 30 Days: Yes Patient Interested in Nicotine Replacement: No Use of substances other than those prescribed or required for medical reasons: No Have you been hit, kicked, punched, or otherwise hurt by someone within the past year? If so, by whom?: No Do you feel safe in your current relationship?: Yes Are you made to feel afraid or neglected: No Advance Directives: No Advance Directives Information Provided: Yes Do you have thoughts of harming others: None Do you have a plan to hurt others: No Plan Recently lost weight without trying: No Nutrition Risks: No Nutritional Risk Poor oral hygiene: No Meds Allergies Allergy/AdvReac Type Severity Reaction Status Date / Time No Known Allergies Allergy Verified 05/25/22 13:07 Active Medications: Current Medications Vancomycin HCl (Vancomycin/Ns) 2,000 mg in 520 mls @ 260 mls/hr IV ONCE ONE Stop: 01/19/23 13:29 Pharmacy Consult (Consult Rx Perform Med Rec) 1 each MISCELLANE ONCE PRN PRN Reason: Consult order Home Medications Medication Instructions Recorded Confirmed Last Taken Type albuterol sulfate 90 mcg/actuation 1 inh inhalation QID 03/18/22 01/19/23 Unknown History aerosol inhaler amlodipine 10 mg tablet 10 mg PO BEDTIME 03/18/22 01/19/23 Unknown History dulaglutide 4.5 mg/0.5 mL 4.5 mg subcut WE 03/18/22 01/19/23 Unknown History subcutaneous pen injector (Trulicity) fenofibrate micronized 134 mg 134 mg PO DAILY 03/18/22 01/19/23 Unknown History capsule insulin degludec 100 unit/mL (3 80 unit subcut BID 03/18/22 01/19/23 Unknown History mL) subcutaneous pen (Tresiba FlexTouch U-100 insulin) lisinopril 40 mg tablet 40 mg PO BEDTIME 03/18/22 01/19/23 Unknown History metformin 1,000 mg tablet 1,000 mg PO DAILY 03/18/22 01/19/23 Unknown History montelukast 10 mg tablet 10 mg PO BEDTIME 03/18/22 01/19/23 Unknown History rosuvastatin 20 mg tablet 20 mg PO BEDTIME 03/18/22 01/19/23 Unknown History warfarin 10 mg tablet 10 mg PO MOWE@1800 03/18/22 01/19/23 Unknown History insulin aspart U-100 100 unit/mL 0 sliding scale dose subcut TID 01/19/23 01/19/23 Unknown History (3 mL) subcutaneous pen (Novolog FlexPen U-100 Insulin aspart) warfarin 10 mg tablet 15 mg PO SUTUTHFRSA@1800 01/19/23 01/19/23 Unknown History Physical Exam Vital Signs and Narrative: Vital Signs: Last Vital Signs Temp 99.2 F 01/19/23 11:15 Pulse 82 01/19/23 11:15 Resp 18 01/19/23 11:15 BP 114/65 01/19/23 11:15 Pulse Ox 96 01/19/23 11:15 O2 Del Method 01/19/23 11:15 BMI result Body Mass Index 39.1 Constitutional: Alert, looking uncomfortable in bed, in no acute distress. Mental Status: Oriented to person, place and time. Eyes: Pupils are equal, round, and reactive to light. Ear, Nose, and Throat: Oropharynx clear, mucous membranes moist. Ears and nose without deformities. Trachea midline. Respiratory: Bilateral mild expiratory wheezing. Cardiovascular: S1, S2 regular. No murmurs, rubs, or gallops. Gastrointestinal: Abdomen soft, non-tender, non-distended. Normal bowel sounds. Neurologic: Cranial nerves II-XII are grossly intact bilaterally. No focal neurological deficits. Moves all extremities spontaneously. Spine: Neck tender to palpation, limited ROM. Extremities: Bilateral +1 pitting edema. Draining chronic wound to the right foot. As pictured below. Psychiatric: Normal mood and affect. Results Labs 01/19/23 08:56 01/19/23 08:56 Labs: Laboratory Results - last 24 hr 01/19/23 01/19/23 01/19/23 08:56 08:56 08:56 MCV 86.8 MCH 29.8 MCHC 34.3 RDW 13.8 Plt Count 216 MPV 9.5 Immature Gran % (Auto) 0.4 Neut % (Auto) 80.7 H Lymph % (Auto) 6.8 L [place] % (Auto) 11.6 H Eos % (Auto) 0.1 Baso % (Auto) 0.4 Lymph # (Auto) 0.7 L [place] # (Auto) 1.2 Eos # (Auto) 0.0 Baso # (Auto) 0.0 Abs Immat Gran (auto) 0.04 H Absolute Neuts (auto) 8.5 H Absolute Nucleated RBC 0.000 Nucleated RBC % (auto) 0.0 PT 31.8 H INR 2.7 H Anion Gap 14 Estim Creat Clear Calc 159.1 Estimated GFR > 60 Random Glucose 120 H Lactic Acid Calcium 7.8 L D Total Bilirubin 0.7 AST 41 H ALT 33 Alkaline Phosphatase 77 C-Reactive Protein 27.18 H Total Protein 6.6 Albumin 3.5 Influenza Type A (PCR) Influenza Type B (PCR) RSV RNA Qual (PCR) SARS-CoV-2 RNA (RT-PCR) 01/19/23 01/19/23 08:56 08:59 MCV MCH MCHC RDW Plt Count MPV Immature Gran % (Auto) Neut % (Auto) Lymph % (Auto) [place] % (Auto) Eos % (Auto) Baso % (Auto) Lymph # (Auto) [place] # (Auto) Eos # (Auto) Baso # (Auto) Abs Immat Gran (auto) Absolute Neuts (auto) Absolute Nucleated RBC Nucleated RBC % (auto) PT INR Anion Gap Estim Creat Clear Calc Estimated GFR Random Glucose Lactic Acid 0.9 Calcium Total Bilirubin AST ALT Alkaline Phosphatase C-Reactive Protein Total Protein Albumin Influenza Type A (PCR) NEGATIVE Influenza Type B (PCR) NEGATIVE RSV RNA Qual (PCR) NEGATIVE SARS-CoV-2 RNA (RT-PCR) NEGATIVE Imaging Radiologist's Impressions: Impressions Foot X-Ray 01/19/23 10:00 IMPRESSION: Status post transmetatarsal amputation with soft tissue swelling and gas. Irregularity of the lateral remaining metatarsals is concerning for progressive erosion when compared to prior. This could be associated with osteomyelitis. Assessment and Plan (1) Osteomyelitis: Status: Acute Plan Pt is a 47-year-old male with a PMH significant for?insulin-dependent diabetes, left BKA, right foot transmetatarsal amputation, chronic nonhealing wound of right stump, HTN, HLD, lupus anticoagulant on warfarin, and asthma who presents to the ED with?worsening chronic wound of right foot. Patient admitted to the hospital treatment of osteomyelitis of the right foot on IV antibiotics. Osteomyelitis of chronic right wound X-ray of right foot concerning for osteomyelitis Patient with heart rate of 101, afebrile, no WBC, no sepsis CRP 27.18, ESR 77 IV abx: [facility] surgery consult ID consult Intractable neck pain Patient complains of severe neck pain since this morning MRI of cervical spine with contrast Hyponatremia Patient's sodium 128 at time of presentation Patient received 30mg/kg sepsis bundle IVF Recheck BMP Follow labs, correct as necessary Lupus anticoagulant on warfarin INR therapeutic at 2.7 Hold warfarin in anticipation of possible surgical procedure Therapeutic Lovenox 1mg/kg for DVT prophylaxis Insulin-dependent diabetes Hold home meds SSI, lantus Diabetic diet HLD Continue home meds HTN Continue home meds Asthma Continue home inhalers Full Code Attending:?Dr. Jernigan DVT Prophylaxis: Lovenox 1 mg/kg Pt will require a hospitalization of at least two nights for treatment of osteomyelitis of chronic right foot wound with IV abx. Time Spent With Patient Time: Total time managing care of this patient today ____ minutes. Quality Stroke Does the patient have a stroke diagnosis?: No VTE Prior VTE?: No VTE Risk Level:: Medical - moderate - high VTE Device Contraindication: Treatment Not Indicated VTE Drug Contraindication: N/A - Med Ordered
[2023-01-19 12:09] LABS: Erythrocyte Sedimentation Rate 77 MM/HR (0-15)
--- NOTE | 2023-01-19 12:51 | PC.NURSE ---
this nurse called pharmacy again for dakita - they state they will be sending it shortly
--- NOTE | 2023-01-19 12:52 | PC.NURSE ---
abx started per order
--- NOTE | 2023-01-19 13:54 | PHA.PROG ---
Admission Date/Time: January 19, 2023 13:25 Indication: BONE AND JOINT INFECTION Weight in k.685 kg Adjusted body weight in K.3 Lester body weight in K Obesity Dosing Indication % IBW: 68 % OVER IBW Serum Creatinine - Last 168 Hours 01/19/23 08:56 Creatinine 0.91 Estimated CrCl and GFR - Last 168 Hours 01/19/23 08:56 Estim Creat Clear Calc 159.1 Estimated GFR > 60 Vancomycin Loading Dose: 2000 MG Current Vancomycin Dosing Regimen:1000 MG Q 12 HOURS Vancomycin Monitoring using AUC goal of 400 - 600 range with trough as surrogate marker: Date and Time for next Vancomycin Level to be drawn: Pharmacist Comments on Vancomycin WILL CHECK A RANDOM LEVEL FOR TOXICITY AFTER 2 DOSES Plan: Vancomycin dosing will take advantage of [employer] as a clinical decision support tool that uses Bayesian modeling to calculate individual patient's pharmacokinetic parameters and forecast the patient's drug concentration time course with the target goal AUC 24 range of 400 - 600 mg/L/hr.
[2023-01-19] MEDS: Sodium Hypochlorite 0.5% 473 ML SOLUTION 1 APPL TOPICAL (14:18)
--- NOTE | 2023-01-19 14:22 | PC.NURSE ---
calling pharmacy for missing lovenox, sent mri screening form to mri
--- NOTE | 2023-01-19 14:22 | PC.NURSE ---
rt foot wound packed w/ 4x4 cut and soaked with dakins, 4x4 covering with abd pad and 2 kurlex.
[2023-01-19] MEDS: Enoxaparin Sodium 150 MG/ML SYRINGE SUBCUT (14:45)
--- NOTE | 2023-01-19 14:59 | PC.NURSE ---
RT called for pt to be medicated
[2023-01-19 15:03] LABS: Hematocrit 38.5 % (42.0-52.0); Mean Corpuscular HGB Conc 33.8 g/dl (31.0-36.0); Mean Corpuscular Hemoglobin 29.9 pg (27.0-33.0); Mean Corpuscular Volume 88.5 fL (80.0-98.0); Mean Platelet Volume 9.3 fL (9.4-12.4); Platelet Count 187 X10*3/uL (160-400); Red Blood Count 4.35 X10*6/uL (4.60-5.80); Red Cell Distribution Width 14.1 % (11.0-16.0); White Blood Count 10.9 X10*3/uL (4.8-10.8)
[2023-01-19] MEDS: Albuterol Sulfate 90 MCG 8 GM INHALER 1 PUFF INHALE ×2 (15:09→20:36)
[2023-01-19 15:11] LABS: INTERNATIONAL NORM RATIO 2.5 (0.9-1.1); Prothrombin Time 29.4 SEC (10.0-13.1)
[2023-01-19 15:13] LABS: Partial Thromboplastin Time 42.5 SEC (26.0-36.4)
--- NOTE | 2023-01-19 15:34 | PC.NURSE ---
report given to floor
[2023-01-19 15:47] LABS: Glucose, Whole Blood 76 mg/dL (60-115)
[2023-01-19 16:24] LABS: Glucose, Whole Blood 90 mg/dL (60-115)
[2023-01-19] MEDS: 0.9 % Sodium Chloride Flush 3 ML SYRINGE IVFLUSH (16:44)
[2023-01-19 17:38] LABS: Osmolality, Serum 265 mosm/kg (281-305)
[2023-01-19 17:48] LABS: Osmolality Urine 341 mosm/kg (373-1093)
[2023-01-19] MEDS: Acetaminophen 325 MG TABLET 650 MG PO (20:27)
[2023-01-19] MEDS: amLODIPine Besylate 10 MG TABLET PO (20:28)
[2023-01-19] MEDS: Montelukast Sodium 10 MG TABLET PO (20:28)
[2023-01-19] MEDS: Atorvastatin Calcium 80 MG TABLET PO (20:28)
[2023-01-19] MEDS: lisinopriL 40 MG TABLET PO (20:28)
[2023-01-19 20:35] LABS: Glucose, Whole Blood 128 mg/dL (60-115)
[2023-01-19] MEDS: Insulin Glargine,Hum.rec.anlog 100 UNIT/ML 10 ML VIAL 56 UNIT SUBCUT (20:35)
--- NOTE | 2023-01-19 21:05 | PC.NURSE ---
MRI not done,unable due to patient size,will need a bigger size machine,Dr. Bowens notified
[2023-01-19 23:09] LABS: Glucose, Whole Blood 126 mg/dL (60-115)
[2023-01-20] MEDS: 0.9 % Sodium Chloride Flush 3 ML SYRINGE IVFLUSH ×3 (00:35→15:32)
[2023-01-20] MEDS: Piperacillin Sodium/Tazobactam 3.375 GM in 0.9 % Sodium Chloride 50 ML IV ×4 (00:35→17:20)
[2023-01-20] MEDS: vancomycin HCL 1,000 MG in 0.9 % Sodium Chloride 250 ML 270 MG IV (01:05)
[2023-01-20] MEDS: Acetaminophen 325 MG TABLET 650 MG PO ×4 (03:24→22:06)
[2023-01-20 03:46] VITALS: BP 124/63; PULSE 78; RESP 17; TEMP 36.3; O2SAT 95
[2023-01-20 06:55] LABS: Hematocrit 37.4 % (42.0-52.0); Hemoglobin 12.8 g/dl (14.0-18.0); Mean Corpuscular HGB Conc 34.2 g/dl (31.0-36.0); Mean Corpuscular Hemoglobin 29.8 pg (27.0-33.0); Platelet Count 190 X10*3/uL (160-400); Red Cell Distribution Width 14.3 % (11.0-16.0); White Blood Count 10.5 X10*3/uL (4.8-10.8)
[2023-01-20 07:07] LABS: Creatinine Clr Calc Pharmacy 195.6; Estimated Glomerular Filt Rate > 60
[2023-01-20 07:08] LABS: Anion Gap 14 (12-20); Blood Urea Nitrogen 10 mg/dL (9-16); Calcium 7.7 mg/dL (8.4-10.2); Carbon Dioxide 20 mmol/L (22-29); Chloride 104 mmol/L (96-108); Creatinine Clr Calc Pharmacy 198.3; Estimated Glomerular Filt Rate > 60; Glucose Random 83 mg/dL (60-115); Potassium 3.4 mmol/L (3.3-5.1); Sodium 135 mmol/L (135-145)
[2023-01-20 07:17] LABS: Glucose, Whole Blood 80 mg/dL (60-115)
[2023-01-20 07:46] VITALS: BP 111/55; PULSE 72; RESP 18; TEMP 36.7; O2SAT 96
[2023-01-20] MEDS: Insulin Glargine,Hum.rec.anlog 100 UNIT/ML 10 ML VIAL 50 UNIT SUBCUT ×2 (08:22→21:31)
[2023-01-20] MEDS: Fenofibrate,Micronized 134 MG CAPSULE PO (08:23)
[2023-01-20] MEDS: oxyCODONE HCl Immed Release 5 MG TABLET PO ×3 (09:21→22:06)
[2023-01-20 10:18] LABS: Vancomycin Random 5.5 mcg/mL (15-20)
--- NOTE | 2023-01-20 10:26 | HE.PHANOTE ---
RE: vanco Trough on 01/20 came back at 5.5, increased dose to 1250mg Q8H with predicted AUC 494mg/L, trough of 8.9. Next level to be drawn 01/21 @1000
[2023-01-20 11:24] LABS: Glucose, Whole Blood 104 mg/dL (60-115)
--- NOTE | 2023-01-20 11:33 | P.CONGS_ITS ---
History of Present Illness Consult details Consult date: 01/20/23 Narrative: Very pleasant 47-year-old gentleman presents for evaluation regarding nonhealing transmetatarsal amputation. Apparently this has been done at [facility] in the past. He has had an ulcer on this trans met in the past and had a course of 6 weeks of IV antibiotics and it progressively went on to heal. He most recently developed a new ulcer and became quite concerned about it. He actually was seen by our [facility] and was in position to get a total non contact cast. The wound deteriorated and he presented to the hospital. He now presents to us for vascular evaluation. Review of Systems Review of Systems: Yes all other systems are reviewed and are negative Constitutional: Constitutional: Reports no additional constitutional complaints ENT: Reports Normal hearing present Cardiovascular: Cardiovascular: Denies chest pain, Denies chest pain at rest, Denies chest pain with activity and Denies pedal edema Respiratory: Respiratory: Denies cough Gastrointestinal: Gastrointestinal: Denies abdominal pain Musculoskeletal: Musculoskeletal: Denies abnormal gait, Denies muscle cramps and Denies radiating pain into limb Integumentary/Breasts: Skin/Breast: Denies skin ulcer and Denies wounds Neurologic: Reports Normal hearing present and Denies abnormal gait Psychiatric: Psychiatric: Reports no additional psychiatric complaints PMF Past Medical History Medical History Amputated finger Amputated toe of right foot Diabetes High cholesterol Hypertension Osteomyelitis Surgical History Surgical History History of neck surgery Social History Social History Household Members: Family Housing: House Do you presently have visiting nurse or other home services: Yes ([facility]) Alcohol intake: never Patient Tobacco Use Status: Current everyday Tobacco user Tobacco use type: Cigarette Cigarettes Per Day: 2 Meds Allergies Allergy/AdvReac Type Severity Reaction Status Date / Time No Known Allergies Allergy Verified 05/25/22 13:07 Active Medications: Current Medications Acetaminophen (Acetaminophen 325 Mg Tablet) 650 mg PO Q6H PRN PRN Reason: Pain, Mild (Pain Scale 1-3) Last Admin: 01/20/23 09:20 Dose: 650 mg Albuterol Sulfate (Albuterol Sulfate 90 Mcg 8 Gm Inhaler) 1 puff INHALE RQID [facility] Last Admin: 01/20/23 10:42 Dose: Not Given Amlodipine Besylate (Amlodipine Besylate 10 Mg Tablet) 10 mg PO BEDTIME [facility]; Protocol Last Admin: 01/19/23 20:28 Dose: 10 mg Atorvastatin Calcium (Atorvastatin Calcium 80 Mg Tablet) 80 mg PO BEDTIME [facility] Last Admin: 01/19/23 20:28 Dose: 80 mg Carisoprodol (Carisoprodol 350 Mg Tablet) 350 mg PO TID PRN PRN Reason: Pain, Moderate (Pain Scale 4-6 Docusate Sodium (Docusate Sodium 100 Mg Capsule) 100 mg PO DAILY PRN PRN Reason: Constipation Fenofibrate (Fenofibrate,Micronized 134 Mg Capsule) 134 mg PO DAILY [facility] Last Admin: 01/20/23 08:23 Dose: 134 mg Glucose (Glucose Gel 15 Gm Gel..Gram.) 15 gm PO Q15M PRN; Protocol PRN Reason: per Hypoglycemia Standing Ord. Piperacillin Sod/Tazobactam (Sod 3.375 gm/ Sodium Chloride) 50 mls @ 100 mls/hr IV Q6H [facility] Last Infusion: 01/20/23 06:26 Dose: Infused Dextrose (D10) 250 mls @ 750 mls/hr IV Q15M PRN; Protocol PRN Reason: per Hypoglycemia Standing Ord. Vancomycin HCl 1,250 mg/ (Sodium Chloride) 250 mls @ 166.667 mls/hr IV Q8H [facility] Insulin Glargine (Insulin Glargine,Hum.Rec.Anlog 100 Unit/Ml 10 Ml Vial) 50 unit SUBCUT BID [facility] Last Admin: 01/20/23 08:22 Dose: 50 unit Insulin Human Lispro (Insulin Lispro 100 Unit/Ml 3 Ml Vial) 0 unit SUBCUT QIDACHS [facility]; Protocol Last Admin: 01/20/23 08:24 Dose: Not Given Lisinopril (Lisinopril 40 Mg Tablet) 40 mg PO BEDTIME [facility]; Protocol Last Admin: 01/19/23 20:28 Dose: 40 mg Montelukast Sodium (Montelukast Sodium 10 Mg Tablet) 10 mg PO BEDTIME [facility] Last Admin: 01/19/23 20:28 Dose: 10 mg Ondansetron HCl (Ondansetron Hcl 4 Mg/2 Ml Vial) 4 mg IVPUSH Q8H PRN PRN Reason: Nausea and Vomiting Oxycodone HCl (Oxycodone Hcl Immed Release 5 Mg Tablet) 5 mg PO Q6H PRN PRN Reason: Pain, Severe (Pain Scale 7-10) Last Admin: 01/20/23 09:21 Dose: 5 mg Pharmacy Consult (Consult Rx Perform Med Rec) 1 each MISCELLANE ONCE PRN PRN Reason: Consult order Pharmacy Consult (Consult Rx Vancomycin Dosing) 1 each MISCELLANE DAILY PRN PRN Reason: Consult order Sodium Chloride (0.9 % Sodium Chloride Flush 3 Ml Syringe) 3 ml IVFLUSH QSHIFT [facility]I Last Admin: 01/20/23 08:23 Dose: 3 ml Trolamine Salicylate (Trolamine Salicylate 10 % Cream 141 Gm Tube) 1 appl TOPICAL TID PRN; Protocol PRN Reason: neck pain Home Medications Medication Instructions Recorded Confirmed Last Taken Type albuterol sulfate 90 mcg/actuation 1 inh inhalation QID 03/18/22 01/19/23 Unknown History aerosol inhaler amlodipine 10 mg tablet 10 mg PO BEDTIME 03/18/22 01/19/23 Unknown History dulaglutide 4.5 mg/0.5 mL 4.5 mg subcut WE 03/18/22 01/19/23 Unknown History subcutaneous pen injector (Trulicity) fenofibrate micronized 134 mg 134 mg PO DAILY 03/18/22 01/19/23 Unknown History capsule insulin degludec 100 unit/mL (3 80 unit subcut BID 03/18/22 01/19/23 Unknown History mL) subcutaneous pen (Tresiba FlexTouch U-100 insulin) lisinopril 40 mg tablet 40 mg PO BEDTIME 03/18/22 01/19/23 Unknown History metformin 1,000 mg tablet 1,000 mg PO DAILY 03/18/22 01/19/23 Unknown History montelukast 10 mg tablet 10 mg PO BEDTIME 03/18/22 01/19/23 Unknown History rosuvastatin 20 mg tablet 20 mg PO BEDTIME 03/18/22 01/19/23 Unknown History warfarin 10 mg tablet 10 mg PO MOWE@1800 03/18/22 01/19/23 Unknown History insulin aspart U-100 100 unit/mL 0 sliding scale dose subcut TID 01/19/23 01/19/23 Unknown History (3 mL) subcutaneous pen (Novolog FlexPen U-100 Insulin aspart) warfarin 10 mg tablet 15 mg PO MADHAV@1800 01/19/23 01/19/23 Unknown History Physical Exam Vital Signs: Vital Signs: Last Vital Signs Temp 98.0 F 01/20/23 07:46 Pulse 72 01/20/23 07:46 Resp 18 01/20/23 07:46 BP 111/55 L 01/20/23 07:46 Pulse Ox 96 01/20/23 07:46 O2 Del Method 01/20/23 07:46 BMI result Body Mass Index 39.1 Const: General: cooperative, healthy appearing and comfortable Orientation/consciousness: oriented to person, oriented to place and oriented to time HEENT: Head: Yes normal to inspection Neck: Neck: Yes normal visual inspection Carotids: no bruits Chest: Chest palpation & inspection: normal inspection of the chest Resp: Effort & Inspection: normal respiratory effort and able to speak in complete sentences Auscultation: clear to auscultation bilaterally, no crackles, no rales, no rhonchi and no wheezes Cardio: Rate: regular rate Rhythm: regular rhythm Heart sounds: S1 normal heart sound present and S2 normal heart sound present Bruits: no carotid bruits Peripheral pulses: Peripheral pulses 2+ throughout GI: Inspection: Yes normal to inspection Skin: Other: Trans met amp 3 center our meter open ulcer along with a lateral blister. Wounds: no wounds Hair: normal Neuro: General: oriented to person, oriented to place and oriented to time Cranial nerves: Yes CN's II-XII intact bilaterally and Yes Normal hearing present Cognition (Neuro): normal cognition Motor exam (neuro): 5/5 motor strength present throughout Extrem: Other: venous exam: No significant superficial varicosities or spider telangiectasias, minimal edema General: No clubbing, No cyanosis and No edema Psych: Appearance: grossly normal Mental Status: mental status grossly normal Speech and movement: Normal speech and movement present Results Labs 01/20/23 05:40 01/20/23 05:40 Labs: Abnormal lab results 01/19/23 01/19/23 01/19/23 Range/Units 08:56 08:56 14:51 WBC 10.9 H (4.8-10.8) X10*3/uL RBC 4.35 L (4.60-5.80) X10*6/uL Hgb 13.0 L (14.0-18.0) g/dl Hct 38.5 L (42.0-52.0) % MPV 9.3 L (9.4-12.4) fL ESR 77 H (0-15) MM/HR PT (10.0-13.1) SEC INR (0.9-1.1) APTT (26.0-36.4) SEC Carbon Dioxide (22-29) mmol/L POC Glucose (60-115) mg/dL Osmolality 265 L (281-305) mosm/kg Calcium (8.4-10.2) mg/dL Urine Osmolality (373-1093) mosm/kg Random Vancomycin (15-20) mcg/mL 01/19/23 01/19/23 01/19/23 Range/Units 14:51 17:00 20:30 WBC (4.8-10.8) X10*3/uL RBC (4.60-5.80) X10*6/uL Hgb (14.0-18.0) g/dl Hct (42.0-52.0) % MPV (9.4-12.4) fL ESR (0-15) MM/HR PT 29.4 H (10.0-13.1) SEC INR 2.5 H (0.9-1.1) APTT 42.5 H (26.0-36.4) SEC Carbon Dioxide (22-29) mmol/L POC Glucose 128 H (60-115) mg/dL Osmolality (281-305) mosm/kg Calcium (8.4-10.2) mg/dL Urine Osmolality 341 L (373-1093) mosm/kg Random Vancomycin (15-20) mcg/mL 01/19/23 01/20/23 01/20/23 Range/Units 23:06 05:40 05:40 WBC (4.8-10.8) X10*3/uL RBC 4.30 L (4.60-5.80) X10*6/uL Hgb 12.8 L (14.0-18.0) g/dl Hct 37.4 L (42.0-52.0) % MPV (9.4-12.4) fL ESR (0-15) MM/HR PT (10.0-13.1) SEC INR (0.9-1.1) APTT (26.0-36.4) SEC Carbon Dioxide 20 L (22-29) mmol/L POC Glucose 126 H (60-115) mg/dL Osmolality (281-305) mosm/kg Calcium 7.7 L (8.4-10.2) mg/dL Urine Osmolality (373-1093) mosm/kg Random Vancomycin (15-20) mcg/mL 01/20/23 Range/Units 09:49 WBC (4.8-10.8) X10*3/uL RBC (4.60-5.80) X10*6/uL Hgb (14.0-18.0) g/dl Hct (42.0-52.0) % MPV (9.4-12.4) fL ESR (0-15) MM/HR PT (10.0-13.1) SEC INR (0.9-1.1) APTT (26.0-36.4) SEC Carbon Dioxide (22-29) mmol/L POC Glucose (60-115) mg/dL Osmolality (281-305) mosm/kg Calcium (8.4-10.2) mg/dL Urine Osmolality (373-1093) mosm/kg Random Vancomycin 5.5 L (15-20) mcg/mL Short CBC 01/19/23 01/20/23 Range/Units 14:51 05:40 WBC 10.9 H 10.5 (4.8-10.8) X10*3/uL Hgb 13.0 L 12.8 L (14.0-18.0) g/dl Hct 38.5 L 37.4 L (42.0-52.0) % Plt Count 187 190 (160-400) X10*3/uL BMP 01/20/23 01/20/23 05:40 05:40 Sodium 135 Potassium 3.4 Chloride 104 Carbon Dioxide 20 L BUN 10 Creatinine 0.73 0.74 Calcium 7.7 L All other labs normal. Assessment and Plan (1) Diabetic foot ulcer: Status: Acute Plan In short patient has a new ulcer at the transmetatarsal amputation site. He does have a palpable dorsalis pedis pulse. Of concern is his positive blood culture and he will need long-term IV antibiotics. Would recommend offloading as recommended by the [facility] which will be essential to healing this ulcer. In addition he does have a fair amount of swelling in significant varicosities. I would like to follow-up with him as an outpatient regarding this as well. He no acute vascular intervention required. Patient can see me as an outpatient. Thank you for allowing us to participate in his care. Time Spent With Patient Time: Total time managing care of this patient today ____ minutes. Procedures Date of Service Date of Service: 01/20/23
--- NOTE | 2023-01-20 11:40 | MHC.CM.PN ---
pt lives with uncle -is active with [facility] and goes to [facility] [place] [facility] weekly pt is covid vax x3 and has own ride home
--- NOTE | 2023-01-20 12:48 | P.PNIM_ITS ---
Subjective Subjective Date of Service: 01/20/23 Interval History: being followed for right foot pain and neck discomfort of couple days duration, complaining of neck pain that radiates towards the occiput, with difficulty turning neck to either side has had similar pain in the past with prior history of 2 neck surgeries and an artificial disc denies frontal headache, no fevers no lightheadedness or dizziness. Review of Systems General no dizziness no fever chills. CVS no chest pain, no palpitation. Respiratory no cough, no sob Gastrointestinal no nausea no vomiting, no abdominal pain Review of Systems: Yes all other systems are reviewed and are negative Physical Exam Vital Signs: Vital Signs: Last Vital Signs Temp 98.0 F 01/20/23 07:46 Pulse 72 01/20/23 07:46 Resp 18 01/20/23 07:46 BP 111/55 L 01/20/23 07:46 Pulse Ox 96 01/20/23 07:46 O2 Del Method 01/20/23 07:46 BMI result Body Mass Index 39.1 Const: Other: Constitutional:?Awake alert x3 in mild distress due to neck pain. neck positive tenderness bilateral sternocledoid muscle , no spasm, limited range of motion Respiratory:? clear to auscultation, no crackles, no rhonchi Cardiovascular:?S1, S2 regular. No murmurs, rubs, or gallops. Gastrointestinal:?Abdomen soft, non-tender, non-distended. Normal bowel sounds. Neurologic:?Cranial nerves II-XII intact , No focal neurological deficits. Moves all extremities spontaneously. Extremities:?chronic wound to the right foot, blister lateral margin. left BKA . Psychiatric:?Normal mood and affect. Objective Data Active Medications Acetaminophen (Acetaminophen 325 Mg Tablet) 650 mg PO Q6H PRN PRN Reason: Pain, Mild (Pain Scale 1-3) Last Admin: 01/20/23 09:20 Dose: 650 mg Documented By: OZIEL Albuterol Sulfate (Albuterol Sulfate 90 Mcg 8 Gm Inhaler) 1 puff INHALE ID [facility] Last Admin: 01/20/23 10:42 Dose: Not Given Documented By: EMERSON Non-Admin Reason: med unavail pharm called Amlodipine Besylate (Amlodipine Besylate 10 Mg Tablet) 10 mg PO BEDTIME [facility]; Protocol Last Admin: 01/19/23 20:28 Dose: 10 mg Documented By: DEVI Atorvastatin Calcium (Atorvastatin Calcium 80 Mg Tablet) 80 mg PO BEDTIME [facility] Last Admin: 01/19/23 20:28 Dose: 80 mg Documented By: DEVI Carisoprodol (Carisoprodol 350 Mg Tablet) 350 mg PO TID PRN PRN Reason: Pain, Moderate (Pain Scale 4-6 Docusate Sodium (Docusate Sodium 100 Mg Capsule) 100 mg PO DAILY PRN PRN Reason: Constipation Fenofibrate (Fenofibrate,Micronized 134 Mg Capsule) 134 mg PO DAILY [facility] Last Admin: 01/20/23 08:23 Dose: 134 mg Documented By: OZIEL Glucose (Glucose Gel 15 Gm Gel..Gram.) 15 gm PO Q15M PRN; Protocol PRN Reason: per Hypoglycemia Standing Ord. Piperacillin Sod/Tazobactam (Sod 3.375 gm/ Sodium Chloride) 50 mls @ 100 mls/hr IV Q6H [facility] Last Admin: 01/20/23 12:30 Dose: 100 mls/hr Documented By: OZIEL Dextrose (D10) 250 mls @ 750 mls/hr IV Q15M PRN; Protocol PRN Reason: per Hypoglycemia Standing Ord. Vancomycin HCl 1,250 mg/ (Sodium Chloride) 250 mls @ 166.667 mls/hr IV Q8H [facility] Insulin Glargine (Insulin Glargine,Hum.Rec.Anlog 100 Unit/Ml 10 Ml Vial) 50 unit SUBCUT BID [facility] Last Admin: 01/20/23 08:22 Dose: 50 unit Documented By: OZIEL Insulin Human Lispro (Insulin Lispro 100 Unit/Ml 3 Ml Vial) 0 unit SUBCUT QIDACHS [facility]; Protocol Last Admin: 01/20/23 12:31 Dose: Not Given Documented By: OZIEL Non-Admin Reason: No Insulin Coverage Lisinopril (Lisinopril 40 Mg Tablet) 40 mg PO BEDTIME [facility]; Protocol Last Admin: 01/19/23 20:28 Dose: 40 mg Documented By: DEVI Montelukast Sodium (Montelukast Sodium 10 Mg Tablet) 10 mg PO BEDTIME [facility] Last Admin: 01/19/23 20:28 Dose: 10 mg Documented By: HO.BEIT Ondansetron HCl (Ondansetron Hcl 4 Mg/2 Ml Vial) 4 mg IVPUSH Q8H PRN PRN Reason: Nausea and Vomiting Oxycodone HCl (Oxycodone Hcl Immed Release 5 Mg Tablet) 5 mg PO Q6H PRN PRN Reason: Pain, Severe (Pain Scale 7-10) Last Admin: 01/20/23 09:21 Dose: 5 mg Documented By: OZIEL Pharmacy Consult (Consult Rx Perform Med Rec) 1 each MISCELLANE ONCE PRN PRN Reason: Consult order Pharmacy Consult (Consult Rx Vancomycin Dosing) 1 each MISCELLANE DAILY PRN PRN Reason: Consult order Sodium Chloride (0.9 % Sodium Chloride Flush 3 Ml Syringe) [facility] Admin: 01/20/23 08:23 Dose: 3 ml Documented By: OZIEL Trolamine Salicylate (Trolamine Salicylate 10 % Cream 141 Gm Tube) 1 appl TOPICAL TID PRN; Protocol PRN Reason: neck pain Labs 01/20/23 05:40 01/20/23 05:40 Labs: Laboratory Results - last 24 hr 01/19/23 01/19/23 01/19/23 08:56 14:51 14:51 MCV 88.5 MCH 29.9 MCHC 33.8 RDW 14.1 Plt Count 187 MPV 9.3 L Absolute Nucleated RBC 0.000 Nucleated RBC % (auto) 0.0 PT 29.4 H INR 2.5 H APTT 42.5 H Anion Gap Estim Creat Clear Calc Estimated GFR POC Glucose Random Glucose Osmolality 265 L Calcium Urine Osmolality Ur Random Sodium Random Vancomycin 01/19/23 01/19/23 01/19/23 15:44 16:16 17:00 MCV MCH MCHC RDW Plt Count MPV Absolute Nucleated RBC Nucleated RBC % (auto) PT INR APTT Anion Gap Estim Creat Clear Calc Estimated GFR POC Glucose 76 90 Random Glucose Osmolality Calcium Urine Osmolality 341 L Ur Random Sodium Random Vancomycin 01/19/23 01/19/23 01/19/23 17:00 20:30 23:06 MCV MCH MCHC RDW Plt Count MPV Absolute Nucleated RBC Nucleated RBC % (auto) PT INR APTT Anion Gap Estim Creat Clear Calc Estimated GFR POC Glucose 128 H 126 H Random Glucose Osmolality Calcium Urine Osmolality Ur Random Sodium 21.0 Random Vancomycin 01/20/23 01/20/23 01/20/23 05:40 05:40 05:40 MCV 87.0 MCH 29.8 MCHC 34.2 RDW 14.3 Plt Count 190 MPV 10.0 Absolute Nucleated RBC 0.000 Nucleated RBC % (auto) 0.0 PT INR APTT Anion Gap 14 Estim Creat Clear Calc 198.3 195.6 Estimated GFR > 60 > 60 POC Glucose Random Glucose 83 Osmolality Calcium 7.7 L Urine Osmolality Ur Random Sodium Random Vancomycin 01/20/23 01/20/23 01/20/23 07:14 09:49 11:05 MCV MCH MCHC RDW Plt Count MPV Absolute Nucleated RBC Nucleated RBC % (auto) PT INR APTT Anion Gap Estim Creat Clear Calc Estimated GFR POC Glucose 80 104 Random Glucose Osmolality Calcium Urine Osmolality Ur Random Sodium Random Vancomycin 5.5 L Microbiology Microbiology Results: Microbiology 01/19/23 08:59 Blood Culture - Preliminary Blood - Venous Prelim: GPC Gram Stain only 01/19/23 08:56 Blood Culture - Preliminary Blood - Venous Prelim: GPC Gram Stain only Assessment and Plan (1) Diabetic foot ulcer: Status: Acute (2) Osteomyelitis: Status: Acute Plan 47-year-old male with a PMH significant for?insulin-dependent diabetes, left BKA, right foot transmetatarsal amputation, chronic nonhealing wound of right stump, HTN, HLD, lupus anticoagulant on warfarin, and asthma who presents to the ED with?worsening chronic wound of right foot.? Patient admitted to the hospital treatment of osteomyelitis of the right foot on IV antibiotics. Diabetic right foot ulcer with Osteomyelitis at chronic right transmetatarsal stump X-ray of right foot concerning for osteomyelitis afebrile, no WBC, no sepsis CRP 27.18, ESR 77, blood cultures x2 positive for Gram-positive cocci follow final report continue IV vancomycin and Zosyn day [address] Bhandari he recommend outpatient follow-up with him and with wound clinic. ID consult pending Intractable neck pain improving with oxycodone, hot pack, added soma prn and Aspercreme , patient had an MRI at [facility] and was noted to have osteoarthritis, MRI of cervical spine with contrast was ordered but patient does not fit into MRI machine but since patient improving hold off on further imaging studies. Hyponatremia resolved Lupus anticoagulant on warfarin INR therapeutic at 2.5 since surgical procedure plan will resume Coumadin, follow PT INR daily while on antibiotics Insulin-dependent diabetes stable blood sugar, reduced dose of Lantus to 50 b.i.d. continue ISS and diabetic diet HLD Continue home meds HTN Continue lisinopril 40 mg and amlodipine 10 mg Asthma mild persistent no acute exacerbation Continue home inhalers Full Code DVT Prophylaxis: coumadin Pt will require continued inpatient hospitalization for Gram-positive bacteremia on IV antibiotics. Time Spent With Patient Time: Total time managing care of this patient today ____ minutes. Quality Stroke Does the patient have a stroke diagnosis?: No VTE Prior VTE?: No VTE Risk Level:: Medical - moderate - high VTE Device Contraindication: Treatment Not Indicated VTE Drug Contraindication: N/A - Med Ordered
[2023-01-20] MEDS: vancomycin HCL 1,250 MG in 0.9 % Sodium Chloride 250 ML 166.67 MG IV (13:01)
[2023-01-20] MEDS: carisoprodoL 350 MG TABLET PO ×2 (14:02→22:07)
[2023-01-20] MEDS: Trolamine Salicylate 10 % Cream 141 gm Tube 1 APPL TOPICAL (14:03)
[2023-01-20 14:12] LABS: INTERNATIONAL NORM RATIO 2.3 (0.9-1.1); Prothrombin Time 26.8 SEC (10.0-13.1)
[2023-01-20] MEDS: Albuterol Sulfate 90 MCG 8 GM INHALER 1 PUFF INHALE ×2 (15:05→19:37)
[2023-01-20 15:06] VITALS: PULSE 84; RESP 18; O2SAT 96
[2023-01-20 15:22] VITALS: BP 141/69; PULSE 88; RESP 18; TEMP 37.4; O2SAT 97
[2023-01-20 16:18] LABS: Glucose, Whole Blood 106 mg/dL (60-115)
[2023-01-20] MEDS: Warfarin Sodium 10 MG TABLET PO (17:20)
[2023-01-20 19:13] VITALS: BP 132/73; PULSE 83; RESP 18; TEMP 36.9; O2SAT 90
[2023-01-20 19:38] VITALS: PULSE 83; RESP 18; O2SAT 96
[2023-01-20] MEDS: vancomycin HCL 1,250 MG in 0.9 % Sodium Chloride 250 ML 166.6 MG IV (19:39)
[2023-01-20] MEDS: amLODIPine Besylate 10 MG TABLET PO (20:31)
[2023-01-20] MEDS: Montelukast Sodium 10 MG TABLET PO (20:31)
[2023-01-20] MEDS: lisinopriL 40 MG TABLET PO (20:32)
[2023-01-20] MEDS: Atorvastatin Calcium 80 MG TABLET PO (20:32)
[2023-01-20 20:47] LABS: Glucose, Whole Blood 139 mg/dL (60-115)
[2023-01-21] MEDS: Piperacillin Sodium/Tazobactam 3.375 GM in 0.9 % Sodium Chloride 50 ML IV ×4 (00:03→17:31)
[2023-01-21] MEDS: 0.9 % Sodium Chloride Flush 3 ML SYRINGE IVFLUSH ×4 (00:12→20:42)
[2023-01-21 03:18] VITALS: BP 132/78; PULSE 74; RESP 17; TEMP 36.1; O2SAT 94
[2023-01-21] MEDS: vancomycin HCL 1,250 MG in 0.9 % Sodium Chloride 250 ML 166.67 MG IV (04:09)
[2023-01-21 06:46] LABS: Creatinine Clr Calc Pharmacy 201.1; Estimated Glomerular Filt Rate > 60
[2023-01-21 06:50] LABS: INTERNATIONAL NORM RATIO 2.1 (0.9-1.1); Prothrombin Time 24.9 SEC (10.0-13.1)
[2023-01-21] MEDS: Acetaminophen 325 MG TABLET 650 MG PO ×3 (07:47→20:37)
[2023-01-21] MEDS: Fenofibrate,Micronized 134 MG CAPSULE PO (07:47)
[2023-01-21] MEDS: carisoprodoL 350 MG TABLET PO ×2 (07:47→20:38)
[2023-01-21] MEDS: oxyCODONE HCl Immed Release 5 MG TABLET PO ×3 (07:47→20:38)
[2023-01-21] MEDS: Insulin Glargine,Hum.rec.anlog 100 UNIT/ML 10 ML VIAL 50 UNIT SUBCUT ×2 (07:47→20:56)
[2023-01-21 07:57] LABS: Glucose, Whole Blood 90 mg/dL (60-115)
[2023-01-21 08:00] VITALS: BP 142/77; PULSE 76; RESP 18; TEMP 37.1; O2SAT 95
[2023-01-21] MEDS: Albuterol Sulfate 90 MCG 8 GM INHALER 1 PUFF INHALE (08:00)
[2023-01-21 08:03] VITALS: PULSE 70; RESP 18; O2SAT 94
[2023-01-21 10:24] LABS: Vancomycin Trough 11.9 mcg/mL (10.0-20.0)
--- NOTE | 2023-01-21 10:36 | HE.PHANOTE ---
RE: scot Increased dose to 1500mg Q8H with predicted AUC 474mg/L, trough of 10.1. next level to be drawn 01/22/23 @1000
[2023-01-21 11:20] LABS: Glucose, Whole Blood 101 mg/dL (60-115)
[2023-01-21] MEDS: vancomycin HCL 1,500 MG in 0.9 % Sodium Chloride 500 ML 333.33 MG IV ×2 (12:51→20:45)
[2023-01-21 15:12] VITALS: BP 131/73; PULSE 78; RESP 18; TEMP 37.2; O2SAT 93
[2023-01-21 16:20] LABS: Glucose, Whole Blood 109 mg/dL (60-115)
[2023-01-21] MEDS: Warfarin Sodium 7.5 MG TABLET 15 MG PO (17:30)
--- NOTE | 2023-01-21 17:51 | P.PNIM_ITS ---
Subjective Subjective Date of Service: 01/21/23 Interval History: seen and examined this morning follow up for right foot osteo no significant pain, no fever, chills Review of Systems Review of Systems: Yes all other systems are reviewed and are negative Constitutional Constitutional: Denies chills and Denies fever(s) Cardiovascular Cardiovascular: Denies chest pain, Denies palpitations and Denies dyspnea Respiratory Respiratory: Denies cough and Denies dyspnea Gastrointestinal Gastrointestinal: Denies abdominal pain Endocrine Endocrine: Denies palpitations Physical Exam Vital Signs: Vital Signs: Last Vital Signs Temp 99.0 F 01/21/23 15:12 Pulse 78 01/21/23 15:12 Resp 18 01/21/23 15:12 BP 131/73 01/21/23 15:12 Pulse Ox 93 01/21/23 15:12 O2 Del Method 01/21/23 15:12 BMI result Body Mass Index 39.1 Const: General: cooperative, comfortable, alert and awake Nutritional Appearance: obese Orientation/consciousness: patient oriented x3 Resp: Effort & Inspection: normal respiratory effort and able to speak in complete sentences Cardio: Rate: regular rate Heart sounds: S1 normal heart sound present and S2 normal heart sound present GI: Inspection: No distended Palpation (GI): Soft to palpation Neuro: Other: grossly nonfocal General: patient oriented x3 Extrem: Other: s/p left BKA s/p right transmetatarsal amputation Objective Data Active Medications Acetaminophen (Acetaminophen 325 Mg Tablet) 650 mg PO Q6H PRN PRN Reason: Pain, Mild (Pain Scale 1-3) Last Admin: 01/21/23 14:35 Dose: 650 mg Documented By: ZULMA Albuterol Sulfate (Albuterol Sulfate 90 Mcg 8 Gm Inhaler) 1 puff INHALE [facility] Last Admin: 01/21/23 15:04 Dose: Not Given Documented By: XAVIER Non-Admin Reason: Patient Refused Amlodipine Besylate (Amlodipine Besylate 10 Mg Tablet) 10 mg PO BEDTIME [facility]; Protocol Last Admin: 01/20/23 20:31 Dose: 10 mg Documented By: DEVI Atorvastatin Calcium (Atorvastatin Calcium 80 Mg Tablet) 80 mg PO BEDTIME [facility] Last Admin: 01/20/23 20:32 Dose: 80 mg Documented By: DEVI Carisoprodol (Carisoprodol 350 Mg Tablet) 350 mg PO TID PRN PRN Reason: Pain, Moderate (Pain Scale 4-6 Last Admin: 01/21/23 07:47 Dose: 350 mg Documented By: ZULMA Docusate Sodium (Docusate Sodium 100 Mg Capsule) 100 mg PO DAILY PRN PRN Reason: Constipation Fenofibrate (Fenofibrate,Micronized 134 Mg Capsule) 134 mg PO DAILY [facility] Last Admin: 01/21/23 07:47 Dose: 134 mg Documented By: ZULMA Glucose (Glucose Gel 15 Gm Gel..Gram.) 15 gm PO Q15M PRN; Protocol PRN Reason: per Hypoglycemia Standing Ord. Piperacillin Sod/Tazobactam (Sod 3.375 gm/ Sodium Chloride) 50 mls @ 100 mls/hr IV Q6H [facility] Last Admin: 01/21/23 17:31 Dose: 100 mls/hr Documented By: ZULMA Dextrose (D10) 250 mls @ 750 mls/hr IV Q15M PRN; Protocol PRN Reason: per Hypoglycemia Standing Ord. Vancomycin HCl 1,500 mg/ (Sodium Chloride) 500 mls @ 333.333 mls/hr IV Q8H [facility] Last Infusion: 01/21/23 15:51 Dose: 0 mls/hr Documented By: ZULMA Insulin Glargine (Insulin Glargine,Hum.Rec.Anlog 100 Unit/Ml 10 Ml Vial) 50 unit SUBCUT BID [facility] Last Admin: 01/21/23 07:47 Dose: 50 unit Documented By: ZULMA Insulin Human Lispro (Insulin Lispro 100 Unit/Ml 3 Ml Vial) 0 unit SUBCUT QIDACHS [facility]; Protocol Last Admin: 01/21/23 16:55 Dose: Not Given Documented By: ZULMA Non-Admin Reason: No Insulin Coverage Lisinopril (Lisinopril 40 Mg Tablet) 40 mg PO BEDTIME [facility]; Protocol Last Admin: 01/20/23 20:32 Dose: 40 mg Documented By: DEVI Montelukast Sodium (Montelukast Sodium 10 Mg Tablet) 10 mg PO BEDTIME [facility] Last Admin: 01/20/23 20:31 Dose: 10 mg Documented By: DEVI Ondansetron HCl (Ondansetron Hcl 4 Mg/2 Ml Vial) 4 mg IVPUSH Q8H PRN PRN Reason: Nausea and Vomiting Oxycodone HCl (Oxycodone Hcl Immed Release 5 Mg Tablet) 5 mg PO Q6H PRN PRN Reason: Pain, Severe (Pain Scale 7-10) Last Admin: 01/21/23 14:35 Dose: 5 mg Documented By: ZULMA Pharmacy Consult (Consult Rx Perform Med Rec) 1 each MISCELLANE ONCE PRN PRN Reason: Consult order Pharmacy Consult (Consult Rx Vancomycin Dosing) 1 each MISCELLANE DAILY PRN PRN Reason: Consult order Sodium Chloride (0.9 % Sodium Chloride Flush 3 Ml Syringe) 3 ml IVFLUSH QSHIFT [facility] Last Admin: 01/21/23 14:39 Dose: 3 ml Documented By: ZULMA Trolamine Salicylate (Trolamine Salicylate 10 % Cream 141 Gm Tube) 1 appl TOPICAL TID PRN; Protocol PRN Reason: neck pain Last Admin: 01/20/23 14:03 Dose: 1 appl Documented By: OZIEL Warfarin Sodium (Warfarin Sodium 7.5 Mg Tablet) 15 mg PO SUTUTHFRSA@1800 [facility] Last Admin: 01/21/23 17:30 Dose: 15 mg Documented By: ZULMA Warfarin Sodium (Warfarin Sodium 10 Mg Tablet) 10 mg PO MOWE@1800 [facility] Last Admin: 01/20/23 17:20 Dose: 10 mg Documented By: DEVI Labs 01/20/23 05:40 01/21/23 05:41 Labs: Laboratory Results - last 24 hr 01/20/23 01/21/23 01/21/23 20:43 03:04 05:41 PT 24.9 H INR 2.1 H Estim Creat Clear Calc 201.1 Estimated GFR > 60 POC Glucose 139 H Vancomycin Trough 01/21/23 01/21/23 01/21/23 07:31 09:49 11:16 PT INR Estim Creat Clear Calc Estimated GFR POC Glucose 90 101 Vancomycin Trough 11.9 01/21/23 16:11 PT INR Estim Creat Clear Calc Estimated GFR POC Glucose 109 Vancomycin Trough Microbiology Microbiology Results: Microbiology 01/19/23 08:56 Blood Culture - Preliminary Blood - Venous Staphylococcus aureus 01/19/23 08:59 Blood Culture - Preliminary Blood - Venous Staphylococcus aureus Assessment and Plan (1) Osteomyelitis: Status: Acute Plan Pt is a 47-year-old male with a PMH significant for?insulin-dependent diabetes, left BKA, right foot transmetatarsal amputation, chronic nonhealing wound of right stump, HTN, HLD, lupus anticoagulant on warfarin, and asthma who presents to the ED with?worsening chronic wound of right foot. Patient admitted to the hospital treatment of osteomyelitis of the right foot on IV antibiotics. Diabetic right foot ulcer with Osteomyelitis at chronic right transmetatarsal stump X-ray of right foot concerning for osteomyelitis no sepsis CRP 27.18, ESR 77 continue IV vancomycin and Zosyn day [address] Bhandari he recommend outpatient follow-up with him and with wound clinic. 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 Hyponatremia ? resolved Lupus anticoagulant on warfarin INR therapeutic at 2.1 since?surgical procedure not planned will resume Coumadin follow PT INR daily while on antibiotics Insulin-dependent diabetes stable blood sugar, reduced dose of Lantus to 50 b.i.d. continue ISS and diabetic diet HLD Continue home meds HTN Continue? lisinopril 40 mg and amlodipine 10 mg Asthma mild persistent no acute exacerbation Continue home inhalers Full Code DVT Prophylaxis: coumadin attending - dr. najera Pt will require? continued inpatient hospitalization for Gram-positive bacteremia on IV antibiotics. Time Spent With Patient Time: Total time managing care of this patient today ____ minutes. Quality Stroke Does the patient have a stroke diagnosis?: No VTE Prior VTE?: No VTE Risk Level:: Medical - moderate - high VTE Device Contraindication: Treatment Not Indicated VTE Drug Contraindication: N/A - Med Ordered
[2023-01-21 19:23] VITALS: BP 138/76; PULSE 78; RESP 17; TEMP 36.8; O2SAT 99
[2023-01-21] MEDS: Montelukast Sodium 10 MG TABLET PO (20:39)
[2023-01-21] MEDS: amLODIPine Besylate 10 MG TABLET PO (20:39)
[2023-01-21] MEDS: Atorvastatin Calcium 80 MG TABLET PO (20:39)
[2023-01-21] MEDS: lisinopriL 40 MG TABLET PO (20:40)
[2023-01-21 20:58] LABS: Glucose, Whole Blood 102 mg/dL (60-115)
--- NOTE | 2023-01-21 22:44 | W.PM.IDCN ---
History of Present Illness Data of Consult Service Date: 01/20/23 Requesting physician: Breanna Rey Primary Care Provider: Gauri Do MD [facility] Reason for consult: staph aureus bacteremia,right TMA chronic osteomyelitis He presents to hospital with worsening right TMA redness and purulence. He has had IV Ertapenem finished six weeks IV in May 2022 for right TMA infection. He has no fever or chills now. He has MSSA bacteremia. Review of Systems Review of Systems: Yes all other systems are reviewed and are negative [facility] Past Medical History Medical History Amputated finger Amputated toe of right foot Diabetes High cholesterol Hypertension Osteomyelitis Surgical History Surgical History History of neck surgery Social History Social History Household Members: Family Housing: House Do you presently have visiting nurse or other home services: Yes ([facility]) Alcohol intake: never Patient Tobacco Use Status: Current everyday Tobacco user Tobacco use type: Cigarette Cigarettes Per Day: 2 service: No Meds Allergies Allergy/AdvReac Type Severity Reaction Status Date / Time No Known Allergies Allergy Verified 05/25/22 13:07 Active Medications: Current Medications Acetaminophen (Acetaminophen 325 Mg Tablet) 650 mg PO Q6H PRN PRN Reason: Pain, Mild (Pain Scale 1-3) Last Admin: 01/21/23 20:37 Dose: 650 mg Albuterol Sulfate (Albuterol Sulfate 90 Mcg 8 Gm Inhaler) 1 puff INHALE [facility] Last Admin: 01/21/23 19:23 Dose: Not Given Amlodipine Besylate (Amlodipine Besylate 10 Mg Tablet) 10 mg PO BEDTIME [facility]; Protocol Last Admin: 01/21/23 20:39 Dose: 10 mg Atorvastatin Calcium (Atorvastatin Calcium 80 Mg Tablet) 80 mg PO BEDTIME [facility] Last Admin: 01/21/23 20:39 Dose: 80 mg Carisoprodol (Carisoprodol 350 Mg Tablet) 350 mg PO TID PRN PRN Reason: Pain, Moderate (Pain Scale 4-6 Last Admin: 01/21/23 20:38 Dose: 350 mg Docusate Sodium (Docusate Sodium 100 Mg Capsule) 100 mg PO DAILY PRN PRN Reason: Constipation Fenofibrate (Fenofibrate,Micronized 134 Mg Capsule) 134 mg PO DAILY [facility] Last Admin: 01/21/23 07:47 Dose: 134 mg Glucose (Glucose Gel 15 Gm Gel..Gram.) 15 gm PO Q15M PRN; Protocol PRN Reason: per Hypoglycemia Standing Ord. Dextrose (D10) 250 mls @ 750 mls/hr IV Q15M PRN; Protocol PRN Reason: per Hypoglycemia Standing Ord. Vancomycin HCl 1,500 mg/ (Sodium Chloride) 500 mls @ 333.333 mls/hr IV Q8H [facility] Last Infusion: 01/21/23 22:26 Dose: Infused Insulin Glargine (Insulin Glargine,Hum.Rec.Anlog 100 Unit/Ml 10 Ml Vial) 50 unit SUBCUT BID [facility] Last Admin: 01/21/23 20:56 Dose: 50 unit Insulin Human Lispro (Insulin Lispro 100 Unit/Ml 3 Ml Vial) 0 unit SUBCUT QIDACHS [facility]; Protocol Last Admin: 01/21/23 20:57 Dose: Not Given Lisinopril (Lisinopril 40 Mg Tablet) 40 mg PO BEDTIME [facility]; Protocol Last Admin: 01/21/23 20:40 Dose: 40 mg Montelukast Sodium (Montelukast Sodium 10 Mg Tablet) 10 mg PO BEDTIME [facility] Last Admin: 01/21/23 20:39 Dose: 10 mg Ondansetron HCl (Ondansetron Hcl 4 Mg/2 Ml Vial) 4 mg IVPUSH Q8H PRN PRN Reason: Nausea and Vomiting Oxycodone HCl (Oxycodone Hcl Immed Release 5 Mg Tablet) 5 mg PO Q6H PRN PRN Reason: Pain, Severe (Pain Scale 7-10) Last Admin: 01/21/23 20:38 Dose: 5 mg Pharmacy Consult (Consult Rx Perform Med Rec) 1 each MISCELLANE ONCE PRN PRN Reason: Consult order Pharmacy Consult (Consult Rx Vancomycin Dosing) 1 each MISCELLANE DAILY PRN PRN Reason: Consult order Sodium Chloride (0.9 % Sodium Chloride Flush 3 Ml Syringe) 3 ml IVFLUSH QSHIFT [facility] Last Admin: 01/21/23 20:42 Dose: 3 ml Trolamine Salicylate (Trolamine Salicylate 10 % Cream 141 Gm Tube) 1 appl TOPICAL TID PRN; Protocol PRN Reason: neck pain Last Admin: 01/20/23 14:03 Dose: 1 appl Warfarin Sodium (Warfarin Sodium 7.5 Mg Tablet) 15 mg PO SUTUTHFRSA@1800 [facility] Last Admin: 01/21/23 17:30 Dose: 15 mg Warfarin Sodium (Warfarin Sodium 10 Mg Tablet) 10 mg PO MOWE@1800 [facility] Last Admin: 01/20/23 17:20 Dose: 10 mg Home Medications Medication Instructions Recorded Confirmed Last Taken Type albuterol sulfate 90 mcg/actuation 1 inh inhalation QID 03/18/22 01/19/23 Unknown History aerosol inhaler amlodipine 10 mg tablet 10 mg PO BEDTIME 03/18/22 01/19/23 Unknown History dulaglutide 4.5 mg/0.5 mL 4.5 mg subcut WE 03/18/22 01/19/23 Unknown History [facility] fenofibrate micronized 134 mg 134 mg PO DAILY 03/18/22 01/19/23 Unknown History capsule insulin degludec 100 unit/mL (3 80 unit subcut BID 03/18/22 01/19/23 Unknown History mL) subcutaneous pen (Tresiba FlexTouch U-100 insulin) lisinopril 40 mg tablet 40 mg PO BEDTIME 03/18/22 01/19/23 Unknown History metformin 1,000 mg tablet 1,000 mg PO DAILY 03/18/22 01/19/23 Unknown History montelukast 10 mg tablet 10 mg PO BEDTIME 03/18/22 01/19/23 Unknown History rosuvastatin 20 mg tablet 20 mg PO BEDTIME 03/18/22 01/19/23 Unknown History warfarin 10 mg tablet 10 mg PO MOWE@1800 03/18/22 01/19/23 Unknown History insulin aspart U-100 100 unit/mL 0 sliding scale dose subcut TID 01/19/23 01/19/23 Unknown History (3 mL) subcutaneous pen (Novolog FlexPen U-100 Insulin aspart) warfarin 10 mg tablet 15 mg PO SUTUTHFRSA@1800 01/19/23 01/19/23 Unknown History Physical Exam Vital Signs: Vital Signs: Last Vital Signs Temp 98.2 F 01/21/23 19:23 Pulse 78 01/21/23 19:23 Resp 17 01/21/23 19:23 BP 138/76 01/21/23 19:23 Pulse Ox 99 01/21/23 19:23 O2 Del Method 01/21/23 19:23 BMI result Body Mass Index 39.1 Const: General: cooperative HEENT: Head: Yes normal to inspection Face and sinus: Yes normal facial exam Mouth: Normal oral and palatal mucosa present Teeth and gingiva: dentition normal Eyes: General: appearance normal, both eyes and all related structures Pupils: Equal, round and reactive pupils present Resp: Effort & Inspection: normal respiratory effort Cardio: Rate: regular rate Rhythm: regular rhythm GI: Palpation (GI): Soft to palpation and nontender : General: Yes no CVA tenderness Back/Spine/Pelvis: Back: no CVA tenderness Skin: General skin exam: no rashes or lesions noted Neuro: General: moves all extremities Cranial nerves: Yes Equal, round and reactive pupils present Extrem: Other: right TMA redness General: Yes normal to inspection Psych: Appearance: grossly normal Results Labs 01/20/23 05:40 01/21/23 05:41 Labs: BMP 01/21/23 05:41 Creatinine 0.72 Microbiology Microbiology Results: Microbiology 01/19/23 08:56 Blood - Venous Blood Culture - Preliminary Staphylococcus aureus 01/19/23 08:59 Blood - Venous Blood Culture - Preliminary Staphylococcus aureus Assessment and Plan (1) Diabetic foot ulcer: Status: Acute He has staph aureus bacteremia likely due to TMA right stump exacerbation of chronic infection. He has possible endocarditis. (2) Sepsis: Status: Acute (3) Osteomyelitis: Status: Acute Plan Vancomycin possibly but await cultures for four weeks. Await final culture Check endocarditis echo. Time Spent With Patient Time: Total time managing care of this patient today ____ minutes.
[2023-01-22 03:05] VITALS: BP 143/79; PULSE 71; RESP 20; TEMP 36.3; O2SAT 100
[2023-01-22] MEDS: oxyCODONE HCl Immed Release 5 MG TABLET PO ×4 (03:08→23:35)
[2023-01-22] MEDS: Acetaminophen 325 MG TABLET 650 MG PO ×3 (03:08→20:28)
[2023-01-22] MEDS: vancomycin HCL 1,500 MG in 0.9 % Sodium Chloride 500 ML 333.33 MG IV ×2 (03:11→11:51)
[2023-01-22 06:37] LABS: INTERNATIONAL NORM RATIO 2.8 (0.9-1.1); Prothrombin Time 33.8 SEC (10.0-13.1)
[2023-01-22 06:45] LABS: Creatinine Clr Calc Pharmacy 198.3; Estimated Glomerular Filt Rate > 60
--- NOTE | 2023-01-22 07:16 | CA_ITS ---
Transthoracic Echocardiogram Patient (Last, First, Middle): Mohsen Peoples, Gender: Male Date of : 1975 Age: 47 Procedure Date: 01/22/2023 Procedure Type: Transthoracic Echocardiogram Location: S3E Height: 195.58 cm Weight: 149.69 kg BSA: 2.77 m2 Heart Rate: 78 bpm BP: 143 / 79 mmHg Carpenters Supervisor: SB Referring MD: Breanna GRIFFITH Symptoms: bacteremia, eval for endocarditis Study Quality: Technically Difficult ECG Rhythm: Sinus Conclusions: - Technically very limited study. - The left ventricular systolic function is normal. Estimated LVEF >50%. - No obvious valvular pathology seen on this study. (very limited visualization of valves). Findings Procedure Information Contrast agent, definity, is being given per protocol without apparent complications. The quality of the study was despite the use of contrast and endocardial definition remains poor. The study quality is limited by patients body habitus and limitations of a portable exam. Left Ventricle The left ventricle was not well visualized. The left ventricular systolic function is normal. Regional wall motion abnormalities can not be excluded due to suboptimal endocardial definition. Diastolic function is normal for age. Estimated LVEF >50%. Right Ventricle Normal right ventricular cavity size and systolic function. Atria Both atria are normal in size. Aortic Valve The aortic valve was not well visualized. There is no aortic valve stenosis. There is no aortic valve regurgitation. Mitral Valve The mitral valve appears normal. There is no mitral valve regurgitation. There is no mitral valve stenosis. Pulmonic Valve The pulmonic valve is likely normal. Tricuspid Valve Normal tricuspid valve structure. There is no tricuspid valve regurgitation. Tricuspid regurgitation envelope is inadequate for calculation of right ventricular systolic pressure. Great Vessels The asc aorta is normal in size. Venous The inferior vena cava is dilated and collapses less than 50% with inspiration. Pericardium/Pleural There is no evidence of pericardial effusion. Prior Study Comparison No prior study available for comparison. Recommendations, Care & Conclusions No obvious valvular pathology seen on this study. Consider a CARLIE if clinically appropriate. Measurements 2D Linear Measurements IVSd: 0.96 0.6-0.9/0.6-1.0 cm LA Diam: 4.40 2.7-3.8/3.0-4.0 cm LAIDs Index: 1.59 1.5-2.3 cm/m2 LVOT Diam: 2.40 3.0+(-)1.3 cm 2D Systolic Function EF 4C: 72.80 >55% Mitral Valve MV Pk E: 0.97 MV PK A: 0.60 MV Decel Time: 216.00 E/A: 1.60 E'Lateral: 10.90 E'Medial: 8.27 E/E' Med: 11.70 E/E' Lat: 8.90 PHT: 63.00 MVA PHT: 3.49 Decel Marshall: 4.48 Aortic Valve AoV Pk Aristeo: 1.54 AoV Pk Grad: 9.00 EDYTA: 3.17 LVOT LVOT Pk Aristeo: 1.08 LVOT Mn Aristeo: 0.82 LVOT VTI: 0.23 LVOT Pk Grad: 5.00 LVOT Mn Grad: 3.00 LVOT Diam: 2.40 LVOT Area: 4.52 Diastolic Function MV Pk E: 0.97 MV Pk A: 0.60 E/A: 1.60 E'Medial: 8.27 E/E' Med: 11.70 E' Laterial: 10.90 E/E' Lat: 8.90 Right Ventricle TAPSE (mm): 19.10 TVS' Aristeo: 11.30 Tricuspid Valve RA Press: 15.00 Great Vessels Aorta Sinus of Valsalva: 3.10 2.0-3.5 cm Ao Asc: 3.00 2.1-3.4 cm Pulmonary Valve PV Pk Aristeo: 1.10 Peak PV Grad: 5.00 Updated in Other Vendor System with Status of Final Jerod Mna MD electronically signed on 01/22/2023 3:47:28 PM with status of Final
[2023-01-22 07:24] LABS: Glucose, Whole Blood 79 mg/dL (60-115)
[2023-01-22 08:00] VITALS: BP 159/76; PULSE 71; RESP 18; TEMP 36.6; O2SAT 95
[2023-01-22] MEDS: carisoprodoL 350 MG TABLET PO ×2 (08:09→20:31)
[2023-01-22] MEDS: Insulin Glargine,Hum.rec.anlog 100 UNIT/ML 10 ML VIAL 50 UNIT SUBCUT ×2 (08:09→20:30)
[2023-01-22] MEDS: Fenofibrate,Micronized 134 MG CAPSULE PO (08:10)
[2023-01-22 11:07] LABS: Vancomycin Trough 13.4 mcg/mL (10.0-20.0)
--- NOTE | 2023-01-22 11:33 | P.PNVS_ITS ---
Subjective Subjective Date of Service: 01/22/23 Patient reports: no new complaints and feels better Interval history: Complex 47-year-old gentleman presents for follow-up regarding nonhealing right- sided transmetatarsal amputation. He had an initial ulcer of about 3 cm right on the flap. Now on the lateral aspect he has developed a blistering. He appears to be doing relatively well. No interval issues he now presents for follow-up and dressing change. Physical Exam Vital Signs: Vital Signs: Last Vital Signs Temp 97.9 F 01/22/23 08:00 Pulse 71 01/22/23 08:00 Resp 18 01/22/23 08:00 BP 159/76 H 01/22/23 08:00 Pulse Ox 95 01/22/23 08:00 O2 Del Method 01/22/23 08:00 BMI result Body Mass Index 39.1 Const: General: cooperative, healthy appearing and comfortable Orientation/consciousness: oriented to person, oriented to place and oriented to time HEENT: Head: Yes normal to inspection Neck: Neck: Yes normal visual inspection Carotids: no bruits Chest: Chest palpation & inspection: normal inspection of the chest Resp: Effort & Inspection: normal respiratory effort and able to speak in complete sentences Auscultation: clear to auscultation bilaterally, no crackles, no rales, no rhonchi and no wheezes Cardio: Rate: regular rate Rhythm: regular rhythm Heart sounds: S1 normal heart sound present and S2 normal heart sound present Bruits: no carotid bruits Peripheral pulses: Peripheral pulses 2+ throughout GI: Inspection: Yes normal to inspection Skin: Other: Right transmetatarsal amputation approximately 3 cm ulcer on the flap itself which is fairly clean on the lateral aspect there is a no other 3 cm ulcer with an eschar overlying it. Eschar was removed. Nonhealing area with very poor granulation bed. This was irrigated and cleaned. The 2 open ulcers are connected by small spur skin bridge which could be easily connected. Wounds: no wounds Hair: normal Neuro: General: oriented to person, oriented to place and oriented to time Cranial nerves: Yes CN's II-XII intact bilaterally and Yes Normal hearing present Cognition (Neuro): normal cognition Motor exam (neuro): 5/5 motor strength present throughout Extrem: Other: venous exam: No significant superficial varicosities or spider telangiectasias, minimal edema General: No clubbing, No cyanosis and No edema Psych: Appearance: grossly normal Mental Status: mental status grossly normal Speech and movement: Normal speech and movement present Progress Note: A&P Assessment and plan (1) Diabetic foot ulcer: Status: Acute Assessment and Plan: In short patient has a right foot diabetic ulcer with nonhealing transmetatarsal amp. This is quite concerning and he may not heal this. I have discussed these findings with him and will trial conservative management with a minimum of 6 weeks of IV antibiotics. There is a very high risk that this may end up as a BKA. He is aware of this and is accepting of this as well. He would like conservative trial though. I also requested that he hold off on fitting of his left-sided prosthetic just in case this does end up a BKA they could match the lengths of these prosthetics appropriately. He will follow up with me as an outpatient. Thank you for allowing us to assist in his care. If there are any questions or concerns please do not hesitate to contact me. Of note I will be away for the next [address] Flores and Mejia will be covering. Time Spent With Patient Time: Total time managing care of this patient today ____ minutes. Procedures Date of Service Date of Service: 01/22/23 Quality Stroke Does the patient have a stroke diagnosis?: No VTE Prior VTE?: No VTE Risk Level:: Medical - moderate - high VTE Device Contraindication: Treatment Not Indicated VTE Drug Contraindication: N/A - Med Ordered
[2023-01-22 11:37] LABS: Glucose, Whole Blood 92 mg/dL (60-115)
--- NOTE | 2023-01-22 13:20 | HO.PM.IMPN ---
Subjective Subjective Date of Service: 01/22/23 Interval History: seen and examined this morning follow up for diabetic foot wound denies fever or chills still reporting neck pain Review of Systems Review of Systems: Yes all other systems are reviewed and are negative Constitutional Constitutional: Denies chills and Denies fever(s) Cardiovascular Cardiovascular: Denies chest pain, Denies palpitations and Denies dyspnea Respiratory Respiratory: Denies cough and Denies dyspnea Endocrine Endocrine: Denies palpitations Physical Exam Vital Signs: Vital Signs: Last Vital Signs Temp 97.9 F 01/22/23 08:00 Pulse 71 01/22/23 08:00 Resp 18 01/22/23 08:00 BP 159/76 H 01/22/23 08:00 Pulse Ox 95 01/22/23 08:00 O2 Del Method 01/22/23 08:00 BMI result Body Mass Index 39.1 Const: General: cooperative Nutritional Appearance: obese Orientation/consciousness: patient oriented x3 Resp: Effort & Inspection: normal respiratory effort and able to speak in complete sentences Cardio: Rate: regular rate Heart sounds: S1 normal heart sound present and S2 normal heart sound present GI: Inspection: No distended Palpation (GI): Soft to palpation Neuro: Other: grossly nonfocal General: patient oriented x3 Extrem: Other: right foot c/d/i dressing s/p left BKA s/p right transmetatarsal amputation Objective Data Active Medications Acetaminophen (Acetaminophen 325 Mg Tablet) 650 mg PO Q6H PRN PRN Reason: Pain, Mild (Pain Scale 1-3) Last Admin: 01/22/23 12:05 Dose: 650 mg Documented By: HONEY Albuterol Sulfate (Albuterol Sulfate 90 Mcg 8 Gm Inhaler) 1 puff INHALE RQID [facility] Last Admin: 01/22/23 11:06 Dose: Not Given Documented By: XAVIER Non-Admin Reason: Patient Refused Amlodipine Besylate (Amlodipine Besylate 10 Mg Tablet) 10 mg PO BEDTIME [facility]; Protocol Last Admin: 01/21/23 20:39 Dose: 10 mg Documented By: IRAM Atorvastatin Calcium (Atorvastatin Calcium 80 Mg Tablet) 80 mg PO BEDTIME [facility] Last Admin: 01/21/23 20:39 Dose: 80 mg Documented By: IRAM Carisoprodol (Carisoprodol 350 Mg Tablet) 350 mg PO TID PRN PRN Reason: Pain, Moderate (Pain Scale 4-6 Last Admin: 01/22/23 08:09 Dose: 350 mg Documented By: HONEY Docusate Sodium (Docusate Sodium 100 Mg Capsule) 100 mg PO DAILY PRN PRN Reason: Constipation Fenofibrate (Fenofibrate,Micronized 134 Mg Capsule) 134 mg PO DAILY [facility] Last Admin: 01/22/23 08:10 Dose: 134 mg Documented By: HONEY Glucose (Glucose Gel 15 Gm Gel..Gram.) 15 gm PO Q15M PRN; Protocol PRN Reason: per Hypoglycemia Standing Ord. Dextrose (D10) 250 mls @ 750 mls/hr IV Q15M PRN; Protocol PRN Reason: per Hypoglycemia Standing Ord. Vancomycin HCl 1,500 mg/ (Sodium Chloride) 500 mls @ 333.333 mls/hr IV Q8H [facility] Last Admin: 01/22/23 11:51 Dose: 333.33 mls/hr Documented By: HONEY Cefazolin Sodium 2 gm/ Sodium (Chloride) 50 mls @ 100 mls/hr IV Q8H [facility] Insulin Glargine (Insulin Glargine,Hum.Rec.Anlog 100 Unit/Ml 10 Ml Vial) 50 unit SUBCUT BID [facility] Last Admin: 01/22/23 08:09 Dose: 50 unit Documented By: HONEY Insulin Human Lispro (Insulin Lispro 100 Unit/Ml 3 Ml Vial) 0 unit SUBCUT QIDACHS [facility]; Protocol Last Admin: 01/22/23 11:50 Dose: Not Given Documented By: HONEY Non-Admin Reason: No Insulin Coverage Lisinopril (Lisinopril 40 Mg Tablet) 40 mg PO BEDTIME [facility]; Protocol Last Admin: 01/21/23 20:40 Dose: 40 mg Documented By: IRAM Montelukast Sodium (Montelukast Sodium 10 Mg Tablet) 10 mg PO BEDTIME [facility] Last Admin: 01/21/23 20:39 Dose: 10 mg Documented By: IRAM Ondansetron HCl (Ondansetron Hcl 4 Mg/2 Ml Vial) 4 mg IVPUSH Q8H PRN PRN Reason: Nausea and Vomiting Oxycodone HCl (Oxycodone Hcl Immed Release 5 Mg Tablet) 5 mg PO Q6H PRN PRN Reason: Pain, Severe (Pain Scale 7-10) Last Admin: 01/22/23 09:31 Dose: 5 mg Documented By: HONEY Pharmacy Consult (Consult Rx Perform Med Rec) 1 each MISCELLANE ONCE PRN PRN Reason: Consult order Pharmacy Consult (Consult Rx Vancomycin Dosing) 1 each MISCELLANE DAILY PRN PRN Reason: Consult order Sodium Chloride (0.9 % Sodium Chloride Flush 3 Ml Syringe) 3 ml IVFLUSH QSHIFT [facility] Last Admin: 01/22/23 07:31 Dose: Not Given Documented By: SHELLEY Non-Admin Reason: See Note Trolamine Salicylate (Trolamine Salicylate 10 % Cream 141 Gm Tube) 1 appl TOPICAL TID PRN; Protocol PRN Reason: neck pain Last Admin: 01/20/23 14:03 Dose: 1 appl Documented By: OZIEL Warfarin Sodium (Warfarin Sodium 7.5 Mg Tablet) 15 mg PO SUTUTHFRSA@1800 [facility] Last Admin: 01/21/23 17:30 Dose: 15 mg Documented By: ZULMA Warfarin Sodium (Warfarin Sodium 10 Mg Tablet) 10 mg PO MOWE@1800 [facility] Last Admin: 01/20/23 17:20 Dose: 10 mg Documented By: MANDEEPIT Labs 01/20/23 05:40 01/22/23 05:52 Labs: Laboratory Results - last 24 hr 01/21/23 01/21/23 01/22/23 16:11 20:44 05:52 PT 33.8 H INR 2.8 H Estim Creat Clear Calc Estimated GFR POC Glucose 109 102 Vancomycin Trough 01/22/23 01/22/23 01/22/23 05:52 07:18 10:01 PT INR Estim Creat Clear Calc 198.3 Estimated GFR > 60 POC Glucose 79 Vancomycin Trough 13.4 01/22/23 11:31 PT INR Estim Creat Clear Calc Estimated GFR POC Glucose 92 Vancomycin Trough Microbiology Microbiology Results: Microbiology 01/21/23 18:35 Blood Culture - Preliminary Blood - Venous 01/19/23 08:56 Blood Culture - Final Blood - Venous Staphylococcus aureus 01/19/23 08:59 Blood Culture - Final Blood - Venous Staphylococcus aureus Assessment and Plan (1) Diabetic foot ulcer: Status: Acute (2) Osteomyelitis: Status: Acute Plan Pt is a 47-year-old male with a PMH significant for?insulin-dependent diabetes, left BKA, right foot transmetatarsal amputation, chronic nonhealing wound of right stump, HTN, HLD, lupus anticoagulant on warfarin, and asthma who presents to the ED with?worsening chronic wound of right foot. Patient admitted to the hospital treatment of osteomyelitis of the right foot on IV antibiotics. MSSA bacteremia secondary to Diabetic right foot ulcer (stage 4)/Osteomyelitis at chronic right transmetatarsal stump X-ray of right foot concerning for osteomyelitis no sepsis CRP 27.18, ESR 77 abx changed to IV kefzol. seen by Dr. Bhandari he recommend outpatient follow-up with him and with wound clinic. ID following Surveillance blood cultures pending Will need midline vs PICC line when blood cultures are negative for mis specialist ABX, 4-6 weeks TBD echo pending Intractable neck pain improving with oxycodone, hot pack, added soma prn and Aspercreme , patient had an MRI at [facility] and was noted to have osteoarthritis, MRI of cervical spine with contrast was ordered but patient does not fit into MRI machine but since patient improving hold off on further imaging studies. Given bacteremia and presence of prosthetic disc, will obtain Cervical spine CT to eval for infection Hyponatremia ? resolved Lupus anticoagulant on warfarin INR therapeutic at 2.8 follow PT INR daily while on antibiotics Insulin-dependent diabetes stable blood sugar, reduced dose of Lantus to 50 b.i.d. continue ISS and diabetic diet HLD Continue home meds HTN BP controlled Continue lisinopril 40 mg and amlodipine 10 mg Asthma mild persistent no acute exacerbation Continue home inhalers Morbid Obesity BMI 39.1 weight loss encouraged Full Code DVT Prophylaxis: coumadin attending - dr. Jay Pt will require?continued inpatient hospitalization for Gram-positive bacteremia on IV antibiotics. Time Spent With Patient Time: Total time managing care of this patient today ____ minutes. Quality Stroke Does the patient have a stroke diagnosis?: No VTE Prior VTE?: No VTE Risk Level:: Medical - moderate - high VTE Device Contraindication: Treatment Not Indicated VTE Drug Contraindication: N/A - Med Ordered
--- NOTE | 2023-01-22 15:08 | MHC.CM.PN ---
per rounds pt will not be dcd this weekend may need lt antibiotics
[2023-01-22] MEDS: 0.9 % Sodium Chloride Flush 3 ML SYRINGE IVFLUSH ×2 (15:12→20:44)
[2023-01-22] MEDS: iohexoL 350 MG/ML 100 ML INFUS..BTL IV (15:50)
[2023-01-22 15:56] VITALS: PULSE 76; RESP 18; TEMP 36.6; O2SAT 93
--- NOTE | 2023-01-22 16:03 | P.CDIM_ITS ---
PROVIDER RESPONSE TEXT: To clarify, the appropriate diagnosis supported by the clinical indicators: Diabetic ulcer: bone involvement, stage 4 QUERY TEXT: PHYSICIAN'S DOCUMENTATION REQUEST Date of Query: 01/22/2023 11:11 AM EST Patient Name: Mohsen Peoples Admit Date: 01/19/2023 Dear Breanna Rey, A review of the medical record indicates additional documentation may be needed. Please review below and update the documentation accordingly. Clinical Indicators: per MD progress note 01/21/23: Diabetic right foot ulcer with Osteomyelitis at chronic right transmetatarsal stump Based on the above, could you please provide further information regarding the depth ulcer/wound: Diabetic ulcer Please specify the depth of the ulcer/wound Other (explain) Clinically unable to determine (explain) Thank you, Debbi Ibarra RN Use of terms such as suspected, likely, concern for, or probable (associated with a specific diagnosi s that is being evaluated, monitored, or treated as if it exists) are acceptable and can be coded in the inpatient se tting, when documented at the time of discharge. Please use your independent medical judgment in providing your response. THIS QUERY IS PART OF THE PERMANENT MEDICAL RECORD
[2023-01-22 16:28] VITALS: BP 170/75
--- NOTE | 2023-01-22 16:30 | MHC.CM.PN ---
CM MET W/PT AT BEDSIDE TO DISCUSS DISPO, PT REPORTS HE IS ACTIVE W/[facility] AND HAS DONE IV ABX AT HOME IN PAST, NO PREFERENCE ON HI AND AGREEABLE TO REF TO [facility], ANTIC D/C EARLY NEXT WEEK PT'S BC'S ARE STILL PENDING, CM WILL CONT TO FOLLOW.
[2023-01-22 16:33] LABS: Glucose, Whole Blood 94 mg/dL (60-115)
[2023-01-22] MEDS: Warfarin Sodium 7.5 MG TABLET 15 MG PO (17:12)
[2023-01-22 20:00] VITALS: BP 175/85; PULSE 73; RESP 17; TEMP 36.6; O2SAT 93
[2023-01-22] MEDS: amLODIPine Besylate 10 MG TABLET PO (20:28)
[2023-01-22] MEDS: lisinopriL 40 MG TABLET PO (20:29)
[2023-01-22] MEDS: Atorvastatin Calcium 80 MG TABLET PO (20:29)
[2023-01-22 20:30] LABS: Glucose, Whole Blood 135 mg/dL (60-115)
[2023-01-22] MEDS: Montelukast Sodium 10 MG TABLET PO (20:30)
[2023-01-23 03:18] VITALS: BP 154/78; PULSE 67; RESP 18; TEMP 36.4; O2SAT 97
[2023-01-23 06:16] LABS: Hemoglobin 13.2 g/dl (14.0-18.0); Mean Corpuscular Hemoglobin 28.8 pg (27.0-33.0); Mean Corpuscular Volume 87.3 fL (80.0-98.0); Mean Platelet Volume 9.4 fL (9.4-12.4); Platelet Count 342 X10*3/uL (160-400); Red Blood Count 4.58 X10*6/uL (4.60-5.80); Red Cell Distribution Width 14.9 % (11.0-16.0); White Blood Count 12.8 X10*3/uL (4.8-10.8)
[2023-01-23 06:24] LABS: INTERNATIONAL NORM RATIO 3.7 (0.9-1.1); Prothrombin Time 45.4 SEC (10.0-13.1)
[2023-01-23 06:38] LABS: Anion Gap 16 (12-20); Blood Urea Nitrogen 9 mg/dL (9-16); Calcium 8.4 mg/dL (8.4-10.2); Carbon Dioxide 22 mmol/L (22-29); Chloride 102 mmol/L (96-108); Estimated Glomerular Filt Rate > 60; Glucose Random 81 mg/dL (60-115); Potassium 4.5 mmol/L (3.3-5.1); Sodium 135 mmol/L (135-145)
[2023-01-23] MEDS: Acetaminophen 325 MG TABLET 650 MG PO ×3 (06:41→18:54)
[2023-01-23] MEDS: oxyCODONE HCl Immed Release 5 MG TABLET PO ×3 (06:41→20:02)
[2023-01-23 08:00] VITALS: BP 153/76; PULSE 69; RESP 16; TEMP 36.2; O2SAT 93
[2023-01-23 08:21] VITALS: BP 119/67; PULSE 91; RESP 18; TEMP 36.3; O2SAT 91
[2023-01-23 08:26] LABS: Glucose, Whole Blood 96 mg/dL (60-115)
[2023-01-23] MEDS: 0.9 % Sodium Chloride Flush 3 ML SYRINGE IVFLUSH ×3 (08:35→20:02)
[2023-01-23] MEDS: Fenofibrate,Micronized 134 MG CAPSULE PO (08:35)
[2023-01-23] MEDS: Insulin Glargine,Hum.rec.anlog 100 UNIT/ML 10 ML VIAL 50 UNIT SUBCUT ×2 (08:36→20:02)
[2023-01-23 12:12] LABS: Glucose, Whole Blood 80 mg/dL (60-115)
--- NOTE | 2023-01-23 13:02 | P.PNIM_ITS ---
Subjective Subjective Date of Service: 01/23/23 Interval History: seen and examined this morning follow up for right foot osteo neck pain a little better today no fever, chills Review of Systems Review of Systems: Yes all other systems are reviewed and are negative Constitutional Constitutional: Denies chills and Denies fever(s) Cardiovascular Cardiovascular: Denies chest pain, Denies palpitations and Denies dyspnea Respiratory Respiratory: Denies cough and Denies dyspnea Endocrine Endocrine: Denies palpitations Physical Exam Vital Signs: Vital Signs: Last Vital Signs Temp 97.4 F 01/23/23 08:21 Pulse 91 01/23/23 08:21 Resp 18 01/23/23 08:21 BP 119/67 01/23/23 08:21 Pulse Ox 91 L 01/23/23 08:21 O2 Del Method 01/23/23 08:21 O2 Flow Rate 2 01/23/23 08:21 BMI result Body Mass Index 39.1 Const: General: cooperative, comfortable, alert and awake Nutritional Appearance: obese Orientation/consciousness: patient oriented x3 Resp: Effort & Inspection: normal respiratory effort and able to speak in complete sentences Cardio: Rate: regular rate Heart sounds: S1 normal heart sound present and S2 normal heart sound present GI: Inspection: No distended Palpation (GI): Soft to palpation Skin: Other: Neuro: Other: grossly nonfocal General: patient oriented x3 Extrem: Other: right foot c/d/i dressing s/p left BKA s/p right transmetatarsal amputation Objective Data Active Medications Acetaminophen (Acetaminophen 325 Mg Tablet) 650 mg PO Q6H PRN PRN Reason: Pain, Mild (Pain Scale 1-3) Last Admin: 01/23/23 11:27 Dose: 650 mg Documented By: RADHA Albuterol Sulfate (Albuterol Sulfate 90 Mcg 8 Gm Inhaler) 1 puff INHALE RQID [facility] Last Admin: 01/23/23 11:12 Dose: Not Given Documented By: AMAURY Non-Admin Reason: Patient Refused Amlodipine Besylate (Amlodipine Besylate 10 Mg Tablet) 10 mg PO BEDTIME [facility]; Protocol Last Admin: 01/22/23 20:28 Dose: 10 mg Documented By: CHRISTINE Atorvastatin Calcium (Atorvastatin Calcium 80 Mg Tablet) 80 mg PO BEDTIME [facility] Last Admin: 01/22/23 20:29 Dose: 80 mg Documented By: CHRISTINE Carisoprodol (Carisoprodol 350 Mg Tablet) 350 mg PO TID PRN PRN Reason: Pain, Moderate (Pain Scale 4-6 Last Admin: 01/22/23 20:31 Dose: 350 mg Documented By: CHRISTINE Docusate Sodium (Docusate Sodium 100 Mg Capsule) 100 mg PO DAILY PRN PRN Reason: Constipation Fenofibrate (Fenofibrate,Micronized 134 Mg Capsule) 134 mg PO DAILY [facility] Last Admin: 01/23/23 08:35 Dose: 134 mg Documented By: RADHA Glucose (Glucose Gel 15 Gm Gel..Gram.) 15 gm PO Q15M PRN; Protocol PRN Reason: per Hypoglycemia Standing Ord. Dextrose (D10) 250 mls @ 750 mls/hr IV Q15M PRN; Protocol PRN Reason: per Hypoglycemia Standing Ord. Cefazolin Sodium 2 gm/ Sodium (Chloride) 50 mls @ 100 mls/hr IV Q8H [facility] Last Infusion: 01/23/23 06:38 Dose: 0 mls/hr Documented By: CHRISTINE Insulin Glargine (Insulin Glargine,Hum.Rec.Anlog 100 Unit/Ml 10 Ml Vial) 50 unit SUBCUT BID [facility] Last Admin: 01/23/23 08:36 Dose: 50 unit Documented By: RADHA Insulin Human Lispro (Insulin Lispro 100 Unit/Ml 3 Ml Vial) 0 unit SUBCUT QIDACHS [facility]; Protocol Last Admin: 01/23/23 12:09 Dose: Not Given Documented By: RADHA Non-Admin Reason: No Insulin Coverage Lisinopril (Lisinopril 40 Mg Tablet) 40 mg PO BEDTIME [facility]; Protocol Last Admin: 01/22/23 20:29 Dose: 40 mg Documented By: CHRISTINE Montelukast Sodium (Montelukast Sodium 10 Mg Tablet) 10 mg PO BEDTIME [facility] Last Admin: 01/22/23 20:30 Dose: 10 mg Documented By: CHRISTINE Ondansetron HCl (Ondansetron Hcl 4 Mg/2 Ml Vial) 4 mg IVPUSH Q8H PRN PRN Reason: Nausea and Vomiting Oxycodone HCl (Oxycodone Hcl Immed Release 5 Mg Tablet) 5 mg PO Q6H PRN PRN Reason: Pain, Severe (Pain Scale 7-10) Last Admin: 01/23/23 06:41 Dose: 5 mg Documented By: CHRISTINE Pharmacy Consult (Consult Rx Perform Med Rec) 1 each MISCELLANE ONCE PRN PRN Reason: Consult order Sodium Chloride (0.9 % Sodium Chloride Flush 3 Ml Syringe) 3 ml IVFLUSH QSHIFT [facility] Last Admin: 01/23/23 08:35 Dose: 3 ml Documented By: RADHA Trolamine Salicylate (Trolamine Salicylate 10 % Cream 141 Gm Tube) 1 appl TOPICAL TID PRN; Protocol PRN Reason: neck pain Last Admin: 01/20/23 14:03 Dose: 1 appl Documented By: OZIEL Warfarin Sodium (Warfarin Sodium 10 Mg Tablet) 10 mg PO MOWE@1800 [facility] Last Admin: 01/20/23 17:20 Dose: 10 mg Documented By: DEVI Warfarin Sodium (Warfarin Sodium 7.5 Mg Tablet) 15 mg PO SUTUTHFRSA@1800 [facility] Labs 01/23/23 06:06 01/23/23 06:06 Labs: Laboratory Results - last 24 hr 01/22/23 01/22/23 01/23/23 16:29 20:18 06:06 MCV MCH MCHC RDW Plt Count MPV Absolute Nucleated RBC Nucleated RBC % (auto) PT 45.4 H INR 3.7 H Anion Gap Estim Creat Clear Calc Estimated GFR POC Glucose 94 135 H Random Glucose Calcium 01/23/23 01/23/23 01/23/23 06:06 06:06 08:15 MCV 87.3 MCH 28.8 MCHC 33.0 RDW 14.9 Plt Count 342 D MPV 9.4 Absolute Nucleated RBC 0.000 Nucleated RBC % (auto) 0.0 PT INR Anion Gap 16 Estim Creat Clear Calc 193.0 Estimated GFR > 60 POC Glucose 96 Random Glucose 81 Calcium 8.4 D 01/23/23 12:08 MCV MCH MCHC RDW Plt Count MPV Absolute Nucleated RBC Nucleated RBC % (auto) PT INR Anion Gap Estim Creat Clear Calc Estimated GFR POC Glucose 80 Random Glucose Calcium Microbiology Microbiology Results: Microbiology 01/21/23 18:35 Blood Culture - Preliminary Blood - Venous No growth after 24 hours. 01/21/23 18:35 Blood Culture - Preliminary Blood - Venous No growth after 24 hours. Assessment and Plan (1) Diabetic foot ulcer: Status: Acute (2) Osteomyelitis: Status: Acute Plan Pt is a 47-year-old male with a PMH significant for?insulin-dependent diabetes, left BKA, right foot transmetatarsal amputation, chronic nonhealing wound of rig ht stump, HTN, HLD, lupus anticoagulant on warfarin, and asthma who presents to the ED with?worsening chronic wound of right foot. Patient admitted to the hospital treatment of osteomyelitis of the right foot on IV antibiotics. MSSA bacteremia secondary to Diabetic right foot ulcer (stage 4)/Osteomyelitis at chronic right transmetatarsal stump X-ray of right foot concerning for osteomyelitis no sepsis CRP 27.18, ESR 77 abx changed to IV kefzol 01/[address] Bhandari he recommend outpatient follow-up with him and with wound clinic. ID following Surveillance blood cultures negative x 24 hours echo no obvious vegetation plan for midline for 4 weeks IV abx Intractable neck pain improving with oxycodone, hot pack, added soma prn and Aspercreme , patient had an MRI at [facility] and was noted to have osteoarthritis, MRI of cervical spine with contrast was ordered but patient does not fit into MRI machine but since patient improving hold off on further imaging studies. Given bacteremia and presence of prosthetic disc, Cervical spine CT obtained - negative for acute infection - pt aware of osteophytes, pt reports that his surgeon told him he needs additional surgery, but that he is not surgical candidate at this time given medical issues Hyponatremia ? resolved Lupus anticoagulant on warfarin INR 3.7, will hold coumadin today follow PT INR daily while on antibiotics Insulin-dependent diabetes stable blood sugar, reduced dose of Lantus to 50 b.i.d. continue ISS and diabetic diet HLD Continue home meds HTN BP controlled Continue lisinopril 40 mg and amlodipine 10 mg Asthma mild persistent no acute exacerbation Continue home inhalers Morbid Obesity BMI 39.1 weight loss encouraged Full Code DVT Prophylaxis: coumadin attending - dr. Paiz Pt will require?continued inpatient hospitalization for Gram-positive bacteremia on IV antibiotics. Time Spent With Patient Time: Total time managing care of this patient today ____ minutes. Quality Stroke Does the patient have a stroke diagnosis?: No VTE Prior VTE?: No VTE Risk Level:: Medical - moderate - high VTE Device Contraindication: Treatment Not Indicated VTE Drug Contraindication: N/A - Med Ordered
[2023-01-23] MEDS: ceFAZolin Sodium/Dextrose,Iso 2 GM/50 ML PIGGYBACK IV ×2 (13:46→20:59)
[2023-01-23 14:49] VITALS: BP 138/75; PULSE 67; RESP 16; TEMP 36.6; O2SAT 93
[2023-01-23 16:02] LABS: Glucose, Whole Blood 107 mg/dL (60-115)
[2023-01-23] MEDS: carisoprodoL 350 MG TABLET PO (16:18)
[2023-01-23 19:29] LABS: Glucose, Whole Blood 160 mg/dL (60-115)
[2023-01-23 19:38] VITALS: BP 152/72; PULSE 71; RESP 18; TEMP 37.1; O2SAT 95
[2023-01-23] MEDS: Montelukast Sodium 10 MG TABLET PO (20:01)
[2023-01-23] MEDS: amLODIPine Besylate 10 MG TABLET PO (20:02)
[2023-01-23] MEDS: Atorvastatin Calcium 80 MG TABLET PO (20:02)
[2023-01-23] MEDS: Insulin Lispro 100 UNIT/ML 3 ML VIAL SUBCUT (20:02)
[2023-01-23] MEDS: lisinopriL 40 MG TABLET PO (20:02)
[2023-01-24] MEDS: Acetaminophen 325 MG TABLET 650 MG PO ×4 (03:24→23:19)
[2023-01-24] MEDS: oxyCODONE HCl Immed Release 5 MG TABLET PO ×3 (03:24→14:17)
[2023-01-24 03:44] VITALS: BP 139/71; PULSE 60; RESP 18; TEMP 36.5; O2SAT 93
[2023-01-24] MEDS: ceFAZolin Sodium/Dextrose,Iso 2 GM/50 ML PIGGYBACK IV ×3 (05:02→21:46)
[2023-01-24 07:13] LABS: Hematocrit 42.7 % (42.0-52.0); Mean Corpuscular HGB Conc 32.8 g/dl (31.0-36.0); Mean Corpuscular Hemoglobin 28.7 pg (27.0-33.0); Mean Corpuscular Volume 87.7 fL (80.0-98.0); Platelet Count 379 X10*3/uL (160-400); Red Blood Count 4.87 X10*6/uL (4.60-5.80); Red Cell Distribution Width 14.9 % (11.0-16.0); White Blood Count 12.2 X10*3/uL (4.8-10.8)
[2023-01-24 07:16] LABS: INTERNATIONAL NORM RATIO 3.4 (0.9-1.1); Prothrombin Time 40.9 SEC (10.0-13.1)
[2023-01-24 07:23] VITALS: BP 142/77; PULSE 63; RESP 16; TEMP 36.4; O2SAT 95
[2023-01-24 07:51] LABS: Glucose, Whole Blood 83 mg/dL (60-115)
[2023-01-24] MEDS: Fenofibrate,Micronized 134 MG CAPSULE PO (09:35)
[2023-01-24] MEDS: Insulin Glargine,Hum.rec.anlog 100 UNIT/ML 10 ML VIAL 50 UNIT SUBCUT ×2 (09:36→21:39)
[2023-01-24] MEDS: 0.9 % Sodium Chloride Flush 3 ML SYRINGE IVFLUSH ×2 (09:36→21:41)
[2023-01-24] MEDS: Trolamine Salicylate 10 % Cream 141 gm Tube 1 APPL TOPICAL ×2 (09:37→16:58)
[2023-01-24 11:12] LABS: Glucose, Whole Blood 95 mg/dL (60-115)
[2023-01-24] MEDS: carisoprodoL 350 MG TABLET PO ×2 (13:20→16:57)
--- NOTE | 2023-01-24 13:51 | P.PNIM_ITS ---
Subjective Subjective Date of Service: 01/24/23 Interval History: seen and examined this morning follow up for right foot infection/osteomyelitis no overnight events neck pain somewhat better. no fever, chills Review of Systems Review of Systems: Yes all other systems are reviewed and are negative Constitutional Constitutional: Denies chills and Denies fever(s) ENT Ears, Nose, Mouth, and Throat: Denies dizziness Cardiovascular Cardiovascular: Denies chest pain, Denies palpitations and Denies dyspnea Respiratory Respiratory: Denies cough and Denies dyspnea Neurologic Neurologic: Denies dizziness Endocrine Endocrine: Denies palpitations Physical Exam Vital Signs: Vital Signs: Last Vital Signs Temp 97.5 F 01/24/23 07:23 Pulse 63 01/24/23 07:23 Resp 16 01/24/23 07:23 BP 142/77 H 01/24/23 07:23 Pulse Ox 95 01/24/23 07:23 O2 Del Method 01/24/23 07:23 O2 Flow Rate 2 01/23/23 08:21 BMI result Body Mass Index 39.1 Const: General: cooperative, comfortable, alert and awake Nutritional Appearance: obese Orientation/consciousness: patient oriented x3 Resp: Effort & Inspection: normal respiratory effort and able to speak in complete sentences Cardio: Rate: regular rate Heart sounds: S1 normal heart sound present and S2 normal heart sound present GI: Inspection: No distended Palpation (GI): Soft to palpation Skin: Other: right foot wound appears similar to yesterday. no erythema. minimal drainage; f oul odor Neuro: Other: grossly nonfocal General: patient oriented x3 Extrem: Other: s/p left BKA s/p right transmetatarsal amputation Objective Data Active Medications Acetaminophen (Acetaminophen 325 Mg Tablet) 650 mg PO Q6H PRN PRN Reason: Pain, Mild (Pain Scale 1-3) Last Admin: 01/24/23 09:35 Dose: 650 mg Documented By: MAGALI Albuterol Sulfate (Albuterol Sulfate 90 Mcg 8 Gm Inhaler) 1 puff INHALE ID [facility] Last Admin: 01/24/23 11:23 Dose: Not Given Documented By: AMAURY Non-Admin Reason: Patient Refused Amlodipine Besylate (Amlodipine Besylate 10 Mg Tablet) 10 mg PO BEDTIME [facility]; Protocol Last Admin: 01/23/23 20:02 Dose: 10 mg Documented By: STEVE Atorvastatin Calcium (Atorvastatin Calcium 80 Mg Tablet) 80 mg PO BEDTIME [facility] Last Admin: 01/23/23 20:02 Dose: 80 mg Documented By: STEVE Carisoprodol (Carisoprodol 350 Mg Tablet) 350 mg PO TID PRN PRN Reason: Pain, Moderate (Pain Scale 4-6 Last Admin: 01/24/23 13:20 Dose: 350 mg Documented By: MAGALI Docusate Sodium (Docusate Sodium 100 Mg Capsule) 100 mg PO DAILY PRN PRN Reason: Constipation Fenofibrate (Fenofibrate,Micronized 134 Mg Capsule) 134 mg PO DAILY [facility] Last Admin: 01/24/23 09:35 Dose: 134 mg Documented By: MAGALI Glucose (Glucose Gel 15 Gm Gel..Gram.) 15 gm PO Q15M PRN; Protocol PRN Reason: per Hypoglycemia Standing Ord. Dextrose (D10) 250 mls @ 750 mls/hr IV Q15M PRN; Protocol PRN Reason: per Hypoglycemia Standing Ord. Cefazolin Sodium/Dextrose (Ancef) 2 gm in 50 mls @ 100 mls/hr IV Q8H [facility] Last Admin: 01/24/23 13:22 Dose: 100 mls/hr Documented By: MAGALI Insulin Glargine (Insulin Glargine,Hum.Rec.Anlog 100 Unit/Ml 10 Ml Vial) 50 unit SUBCUT BID [facility] Last Admin: 01/24/23 09:36 Dose: 50 unit Documented By: MAGALI Insulin Human Lispro (Insulin Lispro 100 Unit/Ml 3 Ml Vial) 0 unit SUBCUT QIDACHS [facility]; Protocol Last Admin: 01/24/23 11:14 Dose: Not Given Documented By: MAGALI Non-Admin Reason: No Insulin Coverage Lisinopril (Lisinopril 40 Mg Tablet) 40 mg PO BEDTIME [facility]; Protocol Last Admin: 01/23/23 20:02 Dose: 40 mg Documented By: STEVE Montelukast Sodium (Montelukast Sodium 10 Mg Tablet) 10 mg PO BEDTIME [facility] Last Admin: 01/23/23 20:01 Dose: 10 mg Documented By: HO.BOURQC Ondansetron HCl (Ondansetron Hcl 4 Mg/2 Ml Vial) 4 mg IVPUSH Q8H PRN PRN Reason: Nausea and Vomiting Oxycodone HCl (Oxycodone Hcl Immed Release 5 Mg Tablet) 5 mg PO Q6H PRN PRN Reason: Pain, Severe (Pain Scale 7-10) Last Admin: 01/24/23 09:36 Dose: 5 mg Documented By: MAGALI Pharmacy Consult (Consult Rx Perform Med Rec) 1 each MISCELLANE ONCE PRN PRN Reason: Consult order Sodium Chloride (0.9 % Sodium Chloride Flush 3 Ml Syringe) 3 ml IVFLUSH QSHIFT [facility] Last Admin: 01/24/23 09:36 Dose: 3 ml Documented By: MAGALI Trolamine Salicylate (Trolamine Salicylate 10 % Cream 141 Gm Tube) 1 appl TOPICAL TID PRN; Protocol PRN Reason: neck pain Last Admin: 01/24/23 09:37 Dose: 1 appl Documented By: MAGALI Warfarin Sodium (Warfarin Sodium 10 Mg Tablet) 10 mg PO MOWE@1800 [facility] Last Admin: 01/20/23 17:20 Dose: 10 mg Documented By: DEVI Warfarin Sodium (Warfarin Sodium 7.5 Mg Tablet) 15 mg PO SUTUTHFRSA@1800 [facility] Labs 01/24/23 06:22 01/23/23 06:06 Labs: Laboratory Results - last 24 hr 01/23/23 01/23/23 01/24/23 15:58 19:26 06:22 MCV 87.7 MCH 28.7 MCHC 32.8 RDW 14.9 Plt Count 379 MPV 10.0 Absolute Nucleated RBC 0.000 Nucleated RBC % (auto) 0.0 PT INR POC Glucose 107 160 H 01/24/23 01/24/23 01/24/23 06:22 07:46 11:08 MCV MCH MCHC RDW Plt Count MPV Absolute Nucleated RBC Nucleated RBC % (auto) PT 40.9 H INR 3.4 H POC Glucose 83 95 Microbiology Microbiology Results: Microbiology 01/21/23 18:35 Blood Culture - Preliminary Blood - Venous No growth after 48 hours. 01/21/23 18:35 Blood Culture - Preliminary Blood - Venous No growth after 48 hours. Assessment and Plan (1) Osteomyelitis: Status: Acute (2) MSSA bacteremia: Status: Acute Plan Pt is a 47-year-old male with a PMH significant for?insulin-dependent diabetes, left BKA, right foot transmetatarsal amputation, chronic nonhealing wound of right stump, HTN, HLD, lupus anticoagulant on warfarin, and asthma who presents to the ED with?worsening chronic wound of right foot. Patient admitted to the hospital treatment of osteomyelitis of the right foot on IV antibiotics. MSSA bacteremia secondary to Diabetic right foot ulcer (stage 4)/Osteomyelitis at chronic right transmetatarsal stump X-ray of right foot concerning for osteomyelitis. no sepsis. CRP 27.18, ESR [address] Bhandari - s/p bedside debridement 01/22, recommend outpatient follow-up with him and wound clinic. Likely to require BKA in future but plan for trial of conservative management first Blood cultures growing MSSA, initially treated with vanco/zosyn, changed to IV kefzol 01/22. surveillance blood cultures from 01/21 negative x 48 hours echo no obvious vegetation plan for midline for 4 weeks IV kefzol, end date 02/18 ID following Intractable neck pain Has intermittent neck pain at baseline due to previous cervical spine surgeries improving with oxycodone, hot pack, soma prn and Aspercreme, patient had an MRI at [facility] and was noted to have osteoarthritis MRI of cervical spine with contrast was ordered but patient does not fit into MRI machine Given bacteremia and presence of prosthetic disc, Cervical spine CT with c ontrast obtained - negative for acute infection - pt aware of osteophytes and other changes, pt reports that his surgeon told him he needs additional surgery, but that he is not surgical candidate at this time given medical issues. No upper extremity weakness Hyponatremia ? resolved Lupus anticoagulant on warfarin INR 3.4, will hold coumadin today follow PT INR daily while on antibiotics Insulin-dependent diabetes stable blood sugar, reduced dose of Lantus to 50 b.i.d. continue ISS and miko betic diet HLD Continue statin HTN BP controlled Continue lisinopril 40 mg and amlodipine 10 mg Asthma mild persistent no acute exacerbation Continue home inhalers Morbid Obesity BMI 39.1 weight loss encouraged Full Code DVT Prophylaxis: coumadin attending - dr. Rao Pt will require?continued inpatient hospitalization for Gram-positive bacteremia on IV antibiotics. Time Spent With Patient Time: Total time managing care of this patient today ____ minutes. Quality Stroke Does the patient have a stroke diagnosis?: No VTE Prior VTE?: No VTE Risk Level:: Medical - moderate - high VTE Device Contraindication: Treatment Not Indicated VTE Drug Contraindication: N/A - Med Ordered
[2023-01-24 16:00] VITALS: BP 166/80; PULSE 71; RESP 16; TEMP 36.6; O2SAT 98
[2023-01-24 16:37] LABS: Glucose, Whole Blood 92 mg/dL (60-115)
[2023-01-24 16:44] VITALS: BP 157/76
[2023-01-24 19:41] VITALS: BP 142/75; PULSE 74; RESP 17; TEMP 36.2; O2SAT 93
[2023-01-24 20:46] LABS: Glucose, Whole Blood 186 mg/dL (60-115)
[2023-01-24] MEDS: Atorvastatin Calcium 80 MG TABLET PO (21:37)
[2023-01-24] MEDS: amLODIPine Besylate 10 MG TABLET PO (21:37)
[2023-01-24] MEDS: Montelukast Sodium 10 MG TABLET PO (21:38)
[2023-01-24] MEDS: lisinopriL 40 MG TABLET PO (21:38)
[2023-01-24] MEDS: Insulin Lispro 100 UNIT/ML 3 ML VIAL SUBCUT (21:39)
[2023-01-25 03:25] VITALS: BP 144/78; PULSE 62; RESP 17; TEMP 36.6; O2SAT 94
[2023-01-25] MEDS: ceFAZolin Sodium/Dextrose,Iso 2 GM/50 ML PIGGYBACK IV ×2 (05:16→13:19)
[2023-01-25] MEDS: oxyCODONE HCl Immed Release 5 MG TABLET PO ×2 (05:20→13:34)
[2023-01-25 06:38] LABS: INTERNATIONAL NORM RATIO 2.4 (0.9-1.1); Prothrombin Time 28.7 SEC (10.0-13.1)
[2023-01-25 07:31] VITALS: BP 137/73; PULSE 67; RESP 18; TEMP 36.2; O2SAT 91
[2023-01-25 07:50] LABS: Glucose, Whole Blood 98 mg/dL (60-115)
[2023-01-25] MEDS: 0.9 % Sodium Chloride Flush 3 ML SYRINGE IVFLUSH (09:20)
[2023-01-25] MEDS: Fenofibrate,Micronized 134 MG CAPSULE PO (09:20)
[2023-01-25] MEDS: Insulin Glargine,Hum.rec.anlog 100 UNIT/ML 10 ML VIAL 50 UNIT SUBCUT (09:20)
--- NOTE | 2023-01-25 12:25 | HO.MIDLINE ---
Midline Insertion MIDLINE INSERTION Diagnosis: [NON-HEALING RIGHT FOOT WOUND] Indication: [4 WEEKS OF IV ANTIBX] Pertinent Labs: [REVIEWED] Technique: Using sterile technique including cap and mask, glove and drape, the RIGHT arm was prepped and draped in the usual sterile fashion of full barrier technique with CHG. Using ultrasound guidance, RIGHT BASILIC vein access was obtained on first attempt, [id number] NON-PASV MIDLINE The procedure was performed in ROOM 272. Ultrasound was used to document vein patency and for needle entry. A formal ultrasound picture was recorded. Vascular Resource Specialist Teacher has released the line for use and it is currently dressed with a StatLock, Tegaderm, and CHG disc. Verification has been performed for blood return and line patency. Arm Circumference: 31CM Equipment: BARD POWERGLIDE ST MIDLINE Catheter Type: [[id number] NON-PASV ST MIDLINE] Lot #: [[id number]]
[2023-01-25 12:57] LABS: Glucose, Whole Blood 101 mg/dL (60-115)
--- NOTE | 2023-01-25 12:58 | PM.DS ---
DS: Providers Provider Date of Service: 01/25/23 Date of admission: 01/19/23 13:25 Primary care physician: Gauri Do MD Consults: 01/19/23 13:30 Consult to Infectious Diseases Routine Consulting Provider: Regine Camacho Reason for consultation: Osteomyelitis of chronic wound of right foot Has provider been notified: No Consult to Vascular Surgery Routine Consulting Provider: [facility] Reason for consultation: Osteomyelitis of chronic wound of right foot Attending physician on discharge: Shannan Rao Discharging clinician: Alisa Pruitt DS: Diagnosis Discharge Diagnosis (1) Osteomyelitis: Status: Acute (2) MSSA bacteremia: Status: Acute DS: Summary Hospital Course Hospital Course: HP as per admitting provider Pt is a 47-year-old male with a PMH significant for?insulin-dependent diabetes, left BKA, right foot transmetatarsal amputation, chronic nonhealing wound of right stump, HTN, HLD, lupus anticoagulant on warfarin, and asthma who presents to the ED with?worsening chronic wound of right foot. Patient is followed by Dr. R[facility] last week.? Patient states that visiting nurse came yesterday to change dressing and noted that his wound looked better than normal.? Last night patient developed chills, lightheadedness, and diarrhea. Pt also had flu-like muscle aches in his lower back and arms. Pt woke with morning feeling worse and with severe neck pain. Pt has a history of two neck surgeries and an artificial disc; states he has never had such severe neck pain in the past. Pt denies chest pain/pressure, palpitations. No SOB. Denies fever, nausea, vomiting. No abdominal pain.? Patient states that he has not been on IV antibiotics for over 1 year, and it has been many months since last on oral antibiotics for UTI. In the ED patient was slightly tachycardic at 101 and slightly febrile at 100.4. Labs were significant for WBC WNL, INR 2.7, sodium 128, C-reactive protein 27.18, and ESR 77. XR of foot showed soft tissue swelling and gas, with an irregularity of the lateral metatarsals concerning for progressive erosion associated with osteomyelitis. Pt was treated with ceftriaxone, morphine, vanco and Zosyn, and 30 milligram/kilogram sepsis fluids. Pt will be admitted to the hospital for treatment and further evaluation of osteomyelitis of chronic wound in right foot . MSSA bacteremia secondary to Diabetic right foot ulcer (stage 4)/Osteomyelitis at chronic right transmetatarsal stump X-ray of right foot concerning for osteomyelitis. no sepsis. CRP 27.18, ESR [address] Bhandari - s/p bedside debridement 01/22, recommend outpatient follow-up with him and wound clinic. Likely to require BKA in future but plan for trial of conservative management first Blood cultures growing MSSA, initially treated with vanco/zosyn, changed to IV kefzol 01/22.? surveillance blood cultures from 01/21 negative x 48 hours? echo no obvious vegetation plan for midline for 4 weeks IV kefzol, end date 02/19 Intractable neck pain Has intermittent neck pain at baseline due to previous cervical spine surgeries improving with oxycodone, hot pack, soma prn and Aspercreme, patient had an MRI at [facility] and was noted to have osteoarthritis MRI of cervical spine with contrast was ordered but patient does not fit into MRI machine Given bacteremia and presence of prosthetic disc, Cervical spine CT with contrast obtained - negative for acute infection - pt aware of osteophytes and other changes, pt reports that his surgeon told him he needs additional surgery, but that he is not surgical candidate at this time given medical issues. No upper extremity weakness Hyponatremia ? resolved Lupus anticoagulant on warfarin Insulin-dependent diabetes continue home medications HLD Continue statin HTN BP controlled Continue lisinopril 40 mg and amlodipine 10 mg Asthma mild persistent no acute exacerbation Continue home inhalers Morbid Obesity BMI 39.1 weight loss encouraged Time Spent with Patient Time attestation: Total time managing care of this patient today ____ minutes. Discharge coordination time: Greater than 30 minutes Quality: Safe Use of Opioids Does Pt have an Active Cancer Diagnosis on the Problem List?: No Quality: Stroke Does the patient have a stroke diagnosis?: No Physical Exam Vital Signs: Vital Signs: Last Vital Signs Temp 97.1 F 01/25/23 07:31 Pulse 67 01/25/23 07:31 Resp 18 01/25/23 07:31 BP 137/73 01/25/23 07:31 Pulse Ox 91 L 01/25/23 07:31 O2 Del Method 01/25/23 07:31 O2 Flow Rate 2 01/23/23 08:21 BMI result Body Mass Index 39.1 Appearing in no acute distress head is normocephalic atraumatic eyes pupils are PERRLA sclera is anicteric mouth throat mucous membranes are intact and moist neck is supple no lymphadenopathy, no JVD noted lung sounds are clear to auscultation heart regular rate rhythm, clear S1, S2 positive bowel sounds, abdomen is soft, nontender neuro patient is alert x3, no focal deficits TMA right foot plantar diabetic wound DS: Data Data Completed and Pending Labs on day of discharge: Laboratory Results - last 24 hr 01/24/23 01/24/23 01/25/23 16:29 20:37 05:46 PT 28.7 H INR 2.4 H POC Glucose 92 186 H 01/25/23 01/25/23 07:46 12:53 PT INR POC Glucose 98 101 Preliminary micro results at discharge 01/21/23 18:35 Blood Culture - Preliminary Blood - Venous No growth after 48 hours. 01/21/23 18:35 Blood Culture - Preliminary Blood - Venous No growth after 48 hours. Discharge Plan Discharge Anticipated Discharge Date/Time: 01/25/23 12:33 Patient Disposition: Home, Self-Care Discharge Diagnosis: MSSA bacteremia Osteomyelitis Neck pain hyponatremia Referrals: Gauri Do MD [Primary Care Provider] - 1 Week Discharge Medications: New cefazolin in dextrose (iso-os) 2 gram/50 mL Piggyback 50 ml IV Q8H Qty: 24 0RF Continued warfarin 10 mg tablet 15 mg PO SUTUTHFRSA@1800 insulin aspart U-100 [Novolog FlexPen U-100 Insulin] 100 unit/mL (3 mL) insulin pen 0 sliding scale dose subcut TID montelukast 10 mg tablet 10 mg PO BEDTIME fenofibrate micronized 134 mg capsule 134 mg PO DAILY Tresiba FlexTouch U-100 100 unit/mL (3 mL) insulin pen 80 unit subcut BID rosuvastatin 20 mg tablet 20 mg PO BEDTIME amlodipine 10 mg tablet 10 mg PO BEDTIME lisinopril 40 mg tablet 40 mg PO BEDTIME metformin 1,000 mg tablet 1,000 mg PO DAILY albuterol sulfate 90 mcg/actuation HFA aerosol inhaler 1 inh inhalation QID Trulicity 4.5 mg/0.5 mL pen injector 4.5 mg subcut WE warfarin 10 mg tablet 10 mg PO MOWE@1800 Rx Instructions: on odd numbered days Discharge Orders: Discharge Order (Routine); Ordered 01/25/23 Ordered By: Alisa Pruitt Diet: Advance to usual diet Activity on Discharge: As tolerated Stand Alone Forms: Patient Portal Discharge page Activity Restrictions/Additional Instructions: Please call Dr. Bhandari at [phone] for 2 week follow up regarding wound and varicose vein Care Plan Goals: complete resolution of symptoms Health Concerns: MSSA bacteremia Osteomyelitis Neck pain hyponatremia Plan of Treatment: Follow up with primary care provider as needed Take all medications as prescribed call wound clinic to schedule appointment Alginate dressing daily with gauze Last dose 02/19/23, Nurse may remove midline after last dose Assessment: See discharge summary
[2023-01-25 15:41] VITALS: BP 133/74; PULSE 70; RESP 17; TEMP 36.5; O2SAT 94
--- NOTE | 2023-01-25 17:02 | MHC.CM.PN ---
Patient is discharged to home today on IV ABX. [facility] will resume services tomorrow 2pm. [facility] has performed the teach. The patient returned demo of IV Push Kefzol. He has arranged for transport home.
--- NOTE | 2023-02-08 11:33 | P.CDIM_ITS ---
PROVIDER RESPONSE TEXT: To clarify, the appropriate diagnosis supported by the clinical indicators: Other (explain): This was not a debridement. With irrigation the eschar came off with gauze. Non bill able event. QUERY TEXT: PHYSICIAN'S DOCUMENTATION REQUEST Date of Query: 01/25/2023 12:42 PM EDT Patient Name: Mohsen Peoples Admit Date: 01/19/2023 Dear Oumar Bhandari, A review of the medical record indicates additional documentation may be needed. Please review below and update the documentation accordingly. Clinical Indicators: per MD progress note 01/22/23: Right transmetatarsal amputation approximately 3 cm ulcer on the flap itself which is fairly clean o n the lateral aspect there is a no other 3 cm ulcer with an eschar overlying it. Eschar was removed. Nonhealing area with very poor granulation bed. This was irrigated and cleaned. Could you provide, in the Progress Notes, further clarification regarding the type and nature of the debridement? Excisional debridement Please also address the Type of instrument used, What was excised, Depth of debridement, and Size and appearance of the wound as able Non-excisional debridement Please also address the Depth of debridement, and Size and appearance of the wound as able Other (explain) Clinically unable to determine (explain) Thank you, Debbi Ibarra RN Use of terms such as suspected, likely, concern for, or probable (associated with a specific diagnosi s that is being evaluated, monitored, or treated as if it exists) are acceptable and can be coded in the inpatient se tting, when documented at the time of discharge. Please use your independent medical judgment in providing your response. THIS QUERY IS PART OF THE PERMANENT MEDICAL RECORD
== END 2023-01-25 17:22 | disposition home health service (06) | DRG 565 ==
LOC: HO.ED 09:26 → HO.EDOVER 13:36 → HO.S3 15:19
PROVIDERS: Hospitalist; Physician Assistant Medical; Admitting Provider Student in an Organized Health Care Education/Training Program; Emergency Provider Emergency Medicine; PCP Internal Medicine; Visit Provider Nurse Practitioner Acute Care
DX: T87.43 Infection of amputation stump, right lower extremity (principal); D68.62 Lupus anticoagulant syndrome; M86.671 Other chronic osteomyelitis, right ankle and foot; R78.81 Bacteremia; E87.1 Hypo-osmolality and hyponatremia; L97.516 Non-pressure chronic ulcer of other part of right foot with bone involvement without evidence of necrosis; E11.69 Type 2 diabetes mellitus with other specified complication; J45.20 Mild intermittent asthma, uncomplicated; M54.2 Cervicalgia; E78.00 Pure hypercholesterolemia, unspecified; E11.621 Type 2 diabetes mellitus with foot ulcer; E66.01 Morbid (severe) obesity due to excess calories; Z68.39 Body mass index [BMI] 39.0-39.9, adult; F17.210 Nicotine dependence, cigarettes, uncomplicated; B95.61 Methicillin susceptible Staphylococcus aureus infection as the cause of diseases classified elsewhere; Z20.822 Contact with and (suspected) exposure to COVID-19; Z89.512 Acquired absence of left leg below knee; Z71.6 Tobacco abuse counseling; Z79.4 Long term (current) use of insulin; Z79.01 Long term (current) use of anticoagulants; Z79.84 Long term (current) use of oral hypoglycemic drugs; Z79.899 Other long term (current) drug therapy
CPT/HCPCS: 0241U; 36410; 36415; 72126; 73620; 80048; 80053; 80202; 82565; 82947; 83605; 83930; 83935; 84300; 85025; 85027; 85610; 85652; 85730; 86140; 87040; 87077; 87186; 87205; 93306; 94640; 96361; 96365; 96367; 96375; 99285; C1751; J0690; J0696; J1650; J2270; J2543; J3370; J3371; Q9957; Q9967

== ENCOUNTER 2023-02-02 16:11 | Outpatient (REF) | payer OTHER, SELFPAY ==
[2023-02-02 16:15] LABS: MANUAL DIFF FLAG NO
[2023-02-02 16:27] LABS: Basophils Absolute Auto 0.1 X10*3/uL (0.0-0.2); Basophils Percent Auto 0.6 % (0-2); Eosinophils Absolute Auto 0.2 X10*3/uL (0.0-0.4); Eosinophils Percent Auto 2.1 % (0-4); Hematocrit 41.1 % (42.0-52.0); Hemoglobin 13.2 g/dl (14.0-18.0); Imm Gran Abs Auto 0.04 X10*3/uL (0.00-0.03); Imm Gran Pct Auto 0.4 % (0.0-0.4); Lymphocytes Absolute Auto 1.9 X10*3/uL (1.2-4.9); Lymphocytes Percent Auto 18.5 % (20-40); Mean Corpuscular HGB Conc 32.1 g/dl (31.0-36.0); Mean Corpuscular Hemoglobin 28.8 pg (27.0-33.0); Mean Corpuscular Volume 89.5 fL (80.0-98.0); Mean Platelet Volume 9.8 fL (9.4-12.4); Monocytes Absolute Auto 0.8 X10*3/uL (0.1-1.2); Monocytes Percent Auto 7.7 % (2-11); Neutrophils Absolute Auto 7.4 x10*3/uL (2.0-8.3); Neutrophils Percent Auto 70.7 % (45-73); Platelet Count 384 X10*3/uL (160-400); Red Blood Count 4.59 X10*6/uL (4.60-5.80); Red Cell Distribution Width 14.6 % (11.0-16.0); White Blood Count 10.4 X10*3/uL (4.8-10.8)
[2023-02-02 16:52] LABS: Anion Gap 13 (12-20); Blood Urea Nitrogen 14 mg/dL (9-16); Calcium 8.5 mg/dL (8.4-10.2); Carbon Dioxide 24 mmol/L (22-29); Chloride 103 mmol/L (96-108); Estimated Glomerular Filt Rate > 60; Glucose Random 190 mg/dL (60-115); Potassium 4.9 mmol/L (3.3-5.1); Sodium 135 mmol/L (135-145)
== END 2023-02-02 16:12 | disposition home or self-care (01) ==
LOC: HO.HVNA 16:11
PROVIDERS: Visit Provider Internal Medicine
DX: M86.9 Osteomyelitis, unspecified (principal); A49.01 Methicillin susceptible Staphylococcus aureus infection, unspecified site
CPT/HCPCS: 36415; 80048; 85025

== ENCOUNTER 2023-02-09 17:08 | Outpatient (REF) | payer OTHER, SELFPAY ==
[2023-02-09 17:13] LABS: MANUAL DIFF FLAG NO
[2023-02-09 17:20] LABS: Basophils Absolute Auto 0.1 X10*3/uL (0.0-0.2); Basophils Percent Auto 0.8 % (0-2); Eosinophils Absolute Auto 0.3 X10*3/uL (0.0-0.4); Eosinophils Percent Auto 3.4 % (0-4); Hematocrit 40.1 % (42.0-52.0); Hemoglobin 12.8 g/dl (14.0-18.0); Imm Gran Abs Auto 0.04 X10*3/uL (0.00-0.03); Imm Gran Pct Auto 0.5 % (0.0-0.4); Lymphocytes Absolute Auto 2.2 X10*3/uL (1.2-4.9); Mean Corpuscular HGB Conc 31.9 g/dl (31.0-36.0); Mean Corpuscular Hemoglobin 28.9 pg (27.0-33.0); Mean Corpuscular Volume 90.5 fL (80.0-98.0); Mean Platelet Volume 9.4 fL (9.4-12.4); Monocytes Absolute Auto 0.6 X10*3/uL (0.1-1.2); Monocytes Percent Auto 6.9 % (2-11); Neutrophils Absolute Auto 5.5 x10*3/uL (2.0-8.3); Neutrophils Percent Auto 63.4 % (45-73); Platelet Count 414 X10*3/uL (160-400); Red Blood Count 4.43 X10*6/uL (4.60-5.80); Red Cell Distribution Width 14.8 % (11.0-16.0); White Blood Count 8.7 X10*3/uL (4.8-10.8)
[2023-02-09 17:37] LABS: Anion Gap 13 (12-20); Blood Urea Nitrogen 13 mg/dL (9-16); Calcium 8.3 mg/dL (8.4-10.2); Carbon Dioxide 25 mmol/L (22-29); Chloride 105 mmol/L (96-108); Estimated Glomerular Filt Rate > 60; Glucose Random 171 mg/dL (60-115); Potassium 4.8 mmol/L (3.3-5.1); Sodium 138 mmol/L (135-145)
== END 2023-02-09 17:09 | disposition home or self-care (01) ==
LOC: HO.HVNA 17:08
PROVIDERS: Visit Provider Internal Medicine
DX: M86.9 Osteomyelitis, unspecified (principal)
CPT/HCPCS: 36415; 80048; 85025

== ENCOUNTER → 2023-02-12 16:00 | Outpatient (RCR) | payer OTHER, SELFPAY ==
[2022-02-09 10:58] LABS: MANUAL DIFF FLAG NO
[2022-02-09 11:20] LABS: Basophils Absolute Auto 0.1 X10*3/uL (0.0-0.2); Basophils Percent Auto 0.8 % (0-2); Eosinophils Absolute Auto 0.4 X10*3/uL (0.0-0.4); Eosinophils Percent Auto 3.5 % (0-4); Hematocrit 52.8 % (42.0-52.0); Hemoglobin 16.8 g/dl (14.0-18.0); Imm Gran Abs Auto 0.04 X10*3/uL (0.00-0.03); Imm Gran Pct Auto 0.4 % (0.0-0.4); Lymphocytes Absolute Auto 1.8 X10*3/uL (1.2-4.9); Lymphocytes Percent Auto 16.3 % (20-40); Mean Corpuscular HGB Conc 31.8 g/dl (31.0-36.0); Mean Corpuscular Hemoglobin 29.6 pg (27.0-33.0); Mean Platelet Volume 9.1 fL (9.4-12.4); Monocytes Absolute Auto 0.7 X10*3/uL (0.1-1.2); Monocytes Percent Auto 6.9 % (2-11); Neutrophils Absolute Auto 7.7 x10*3/uL (2.0-8.3); Neutrophils Percent Auto 72.1 % (45-73); Platelet Count 274 X10*3/uL (160-400); Red Blood Count 5.68 X10*6/uL (4.60-5.80); Red Cell Distribution Width 14.1 % (11.0-16.0); White Blood Count 10.7 X10*3/uL (4.8-10.8)
[2022-02-09 11:29] LABS: Estimated Average Glucose 151 mg/dL; Hemoglobin A1c % 6.9 %
[2022-02-09 12:10] LABS: Anion Gap 14 (12-20); Blood Urea Nitrogen 17 mg/dL (9-16); Calcium 9.3 mg/dL (8.4-10.2); Carbon Dioxide 21 mmol/L (22-29); Chloride 106 mmol/L (96-108); Estimated Glomerular Filt Rate > 60; Glucose Random 140 mg/dL (60-115); Potassium 4.8 mmol/L (3.3-5.1); Sodium 136 mmol/L (135-145)
[2022-02-09 12:20] LABS: Erythrocyte Sedimentation Rate 38 MM/HR (0-15)
--- NOTE | ~2023-02-12 | XR_ITS ---
EXAMINATION: XR FOOT, RIGHT CLINICAL INFORMATION: Nonhealing wound. COMPARISON: None TECHNIQUE: AP, lateral, and oblique views of the right foot. FINDINGS: There is amputation of right mid foot with soft tissue irregularity along the stump without any gas collection to suspect any abscess. There is no periosteal erosive changes, lytic process involving the bony stump. Visualized ankle mortise and subtalar joints are normal. A [id number] calcaneal heel and retrocalcaneal enthesophytes are seen. XR/XR foot RT min 3V IMPRESSION: 1. Right midfoot amputation with no suspicion for osteomyelitis on this exam. However, there is irregular-appearing stump likely secondary to inflammatory process. 2. [id number] calcaneal heel and retrocalcaneal enthesophytes.
== END | disposition home or self-care (01) ==
LOC: HO.WCC 07-31 08:52
PROVIDERS: Physician Assistant; PCP Internal Medicine; Visit Provider Surgery
DX: E11.621 Type 2 diabetes mellitus with foot ulcer (principal); L97.515 Non-pressure chronic ulcer of other part of right foot with muscle involvement without evidence of necrosis; L97.514 Non-pressure chronic ulcer of other part of right foot with necrosis of bone; T87.89 Other complications of amputation stump; E11.69 Type 2 diabetes mellitus with other specified complication; M86.9 Osteomyelitis, unspecified; E11.40 Type 2 diabetes mellitus with diabetic neuropathy, unspecified; I10 Essential (primary) hypertension; Z79.4 Long term (current) use of insulin; Z79.01 Long term (current) use of anticoagulants; Z79.2 Long term (current) use of antibiotics; Z79.899 Other long term (current) drug therapy; Z89.512 Acquired absence of left leg below knee; Z89.421 Acquired absence of other right toe(s); Z86.718 Personal history of other venous thrombosis and embolism
CPT/HCPCS: 11042; 11043; 11044; 11045; 11046; 11047; 15275; 16020; 36415; 73630; 80048; 83036; 84134; 85025; 85652; 86140; 87070; 87071; 87073; 87076; 87077; 87185; 87186; 87205; 88305; 88312; 97605; 99213; Q4158; Q4187

== ENCOUNTER 2023-02-17 16:24 | Outpatient (REF) | payer OTHER, SELFPAY ==
[2023-02-17 16:29] LABS: MANUAL DIFF FLAG NO
[2023-02-17 16:36] LABS: Basophils Absolute Auto 0.1 X10*3/uL (0.0-0.2); Basophils Percent Auto 1.1 % (0-2); Eosinophils Absolute Auto 0.4 X10*3/uL (0.0-0.4); Eosinophils Percent Auto 4.2 % (0-4); Hematocrit 38.1 % (42.0-52.0); Imm Gran Abs Auto 0.05 X10*3/uL (0.00-0.03); Imm Gran Pct Auto 0.5 % (0.0-0.4); Lymphocytes Absolute Auto 2.6 X10*3/uL (1.2-4.9); Lymphocytes Percent Auto 27.3 % (20-40); Mean Corpuscular HGB Conc 31.5 g/dl (31.0-36.0); Mean Corpuscular Hemoglobin 28.6 pg (27.0-33.0); Mean Corpuscular Volume 90.7 fL (80.0-98.0); Mean Platelet Volume 9.2 fL (9.4-12.4); Monocytes Absolute Auto 0.8 X10*3/uL (0.1-1.2); Monocytes Percent Auto 8.3 % (2-11); Neutrophils Absolute Auto 5.6 x10*3/uL (2.0-8.3); Neutrophils Percent Auto 58.6 % (45-73); Platelet Count 478 X10*3/uL (160-400); Red Cell Distribution Width 14.7 % (11.0-16.0); White Blood Count 9.6 X10*3/uL (4.8-10.8)
[2023-02-17 17:01] LABS: Anion Gap 15 (12-20); Blood Urea Nitrogen 14 mg/dL (9-16); Calcium 9.2 mg/dL (8.4-10.2); Carbon Dioxide 24 mmol/L (22-29); Chloride 105 mmol/L (96-108); Estimated Glomerular Filt Rate > 60; Glucose Random 160 mg/dL (60-115); Potassium 4.9 mmol/L (3.3-5.1); Sodium 139 mmol/L (135-145)
== END 2023-02-17 16:25 | disposition home or self-care (01) ==
LOC: HO.HVNA 16:24
PROVIDERS: Visit Provider Internal Medicine
DX: M86.9 Osteomyelitis, unspecified (principal); A49.01 Methicillin susceptible Staphylococcus aureus infection, unspecified site
CPT/HCPCS: 36415; 80048; 85025

== ENCOUNTER 2023-02-17 22:09 | Emergency (ER) | payer OTHER, SELFPAY ==
[2023-02-17 23:08] VITALS: BP 161/82; PULSE 80; RESP 20; TEMP 36.5; O2SAT 98; BMI 81.3
[2023-02-18 00:07] LABS: Hematocrit 35.8 % (42.0-52.0); Hemoglobin 11.5 g/dl (14.0-18.0); Mean Corpuscular HGB Conc 32.1 g/dl (31.0-36.0); Mean Corpuscular Hemoglobin 29.2 pg (27.0-33.0); Mean Corpuscular Volume 90.9 fL (80.0-98.0); Mean Platelet Volume 8.8 fL (9.4-12.4); Platelet Count 443 X10*3/uL (160-400); Red Blood Count 3.94 X10*6/uL (4.60-5.80); Red Cell Distribution Width 14.6 % (11.0-16.0); White Blood Count 10.8 X10*3/uL (4.8-10.8)
--- NOTE | 2023-02-18 00:14 | ED_ITS ---
HPI - General Adult General Chief complaint: General Medical Stated complaint: clogged mid-line in arm Time Seen by Provider: 02/18/23 00:08 Source: patient Mode of arrival: ambulatory Limitations: no limitations History of Present Illness HPI narrative: Patient status post midline placement on right arm for osteomyelitis of the right foot came here as RN noticed difficulty in Flushing the line , seems to be clogged. Patient needs his IV line for continuation of IV antibiotics. In the ER upper slight manipulation midline was working normally. Patient denies any other active complaints at this time Related Data Home Medications Medication Instructions Recorded Confirmed albuterol sulfate 90 mcg/actuation 1 inh inhalation QID 03/18/22 01/19/23 aerosol inhaler amlodipine 10 mg tablet 10 mg PO BEDTIME 03/18/22 01/19/23 dulaglutide 4.5 mg/0.5 mL 4.5 mg subcut WE 03/18/22 01/19/23 subcutaneous pen injector (Trulicity) fenofibrate micronized 134 mg 134 mg PO DAILY 03/18/22 01/19/23 capsule insulin degludec 100 unit/mL (3 80 unit subcut BID 03/18/22 01/19/23 mL) subcutaneous pen (Tresiba FlexTouch U-100 insulin) lisinopril 40 mg tablet 40 mg PO BEDTIME 03/18/22 01/19/23 metformin 1,000 mg tablet 1,000 mg PO DAILY 03/18/22 01/19/23 montelukast 10 mg tablet 10 mg PO BEDTIME 03/18/22 01/19/23 rosuvastatin 20 mg tablet 20 mg PO BEDTIME 03/18/22 01/19/23 warfarin 10 mg tablet 10 mg PO MOWE@1800 03/18/22 01/19/23 insulin aspart U-100 100 unit/mL 0 sliding scale dose subcut TID 01/19/23 0 01/19/23 (3 mL) subcutaneous pen (Novolog FlexPen U-100 Insulin aspart) warfarin 10 mg tablet 15 mg PO SUTUTHFRSA@1800 01/19/23 01/19/23 Previous Rx's Medication Instructions Recorded cefazolin 2 gram/50 mL in dextrose 50 ml IV Q8H #24 ea 01/25/23 (iso-osmotic) intravenous piggyback Allergies Allergy/AdvReac Type Severity Reaction Status Date / Time No Known Allergies Allergy Verified 05/25/22 13:07 Review of Systems Review of Systems: Yes all other systems are reviewed and are negative [facility] Past Medical History Medical History Amputated finger Amputated toe of right foot Diabetes High cholesterol Hypertension Osteomyelitis Surgical History History of neck surgery Social History Social History Household Members: Family Housing: House Do you presently have visiting nurse or other home services: Yes ([facility]) Alcohol intake: never Patient Tobacco Use Status: Current everyday Tobacco user Tobacco use type: Cigarette Cigarettes Per Day: 2 Advance Directives: No Advance Directives Information Provided: No service: No Physical Exam ED Vital Signs: Vital Signs - 24 hr 02/17/23 23:08 02/18/23 00:54 Temperature 97.7 F 97.7 F Pulse Rate 80 82 Respiratory Rate 20 18 Blood Pressure 161/82 H 131/60 Pulse Oximetry 98 97 Oxygen Delivery Method Room Air BMI result Body Mass Index 81.3 Appearance: Alert. Oriented X3. No acute distress. ENT: Pharynx normal. Oral Mucosa moist Neck: Normal inspection. Neck supple. CVS: Normal heart rate and rhythm. Pulses normal. Respiratory: No respiratory distress. Equal air entry bilateral, Abdomen: Soft and nontender. Bowel sounds are present, Skin: Skin warm and dry. Normal skin color. Normal skin turgor. 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 No motor deficit. Medications Administered Discontinued Medications Generic Name Dose Route Start Last Admin Trade Name Freq PRN Reason Stop Dose Admin Heparin Sodium (Porcine) 50 0 units 02/18/23 08:00 02/18/23 01:50 units/ Sodium Chloride 5 ml IVFLUSH 50 unit QSHIFT [facility] Administration Medical Decision Making Medical Decision Making [facility] Narrative: Midline was flushed and is working at the time of discharge Lab Data MDM Lab Attestation statement: I reviewed the patient's lab results. 02/17/23 23:56 02/17/23 23:56 Labs: Lab Results 04/05/23 04/05/23 04/05/23 Range/Units 23:56 23:56 23:56 WBC 10.8 (4.8-10.8) X10*3/uL RBC 3.94 L (4.60-5.80) X10*6/uL Hgb 11.5 L (14.0-18.0) g/dl Hct 35.8 L (42.0-52.0) % MCV 90.9 (80.0-98.0) fL MCH 29.2 (27.0-33.0) pg MCHC 32.1 (31.0-36.0) g/dl RDW 14.6 (11.0-16.0) % Plt Count 443 H (160-400) X10*3/uL MPV 8.8 L (9.4-12.4) fL Absolute Nucleated RBC 0.000 (0.0-0.012) X10*3/uL Nucleated RBC % (auto) 0.0 (0.0-0.2) /100WBC PT 18.8 H (10.0-13.1) SEC INR 1.6 H (0.9-1.1) Sodium 140 (135-145) mmol/L Potassium 4.6 (3.3-5.1) mmol/L Chloride 106 (96-108) mmol/L Carbon Dioxide 25 (22-29) mmol/L Anion Gap 14 (12-20) BUN 15 (9-16) mg/dL Creatinine 0.83 (0.5-1.4) mg/dL Estim Creat Clear Calc 273.8 Estimated GFR > 60 Random Glucose 177 H (60-115) mg/dL Calcium 9.0 (8.4-10.2) mg/dL Total Bilirubin 0.2 (0.0-1.0) mg/dL AST 26 (5-37) U/L ALT 23 (0-40) U/L Alkaline Phosphatase 112 (39-117) U/L Total Protein 7.2 (6.5-8.0) g/dL Albumin 3.7 (3.5-5.0) g/dL Discharge Plan Discharge Clinical Impression: Occluded PICC line Patient Disposition: Home, Self-Care Instructions: PICC (Peripherally Inserted Central Catheter) (DC) Additional Instructions: Care as advised Prescriptions: No Action warfarin 10 mg tablet 15 mg PO SUTUTHFRSA@1800 insulin aspart U-100 [Novolog FlexPen U-100 Insulin] 100 unit/mL (3 mL) insulin pen 0 sliding scale dose subcut TID cefazolin in dextrose (iso-os) 2 gram/50 mL Piggyback 50 ml IV Q8H Qty: 24 0RF montelukast 10 mg tablet 10 mg PO BEDTIME fenofibrate micronized 134 mg capsule 134 mg PO DAILY Tresiba FlexTouch U-100 100 unit/mL (3 mL) insulin pen 80 unit subcut BID rosuvastatin 20 mg tablet 20 mg PO BEDTIME amlodipine 10 mg tablet 10 mg PO BEDTIME lisinopril 40 mg tablet 40 mg PO BEDTIME metformin 1,000 mg tablet 1,000 mg PO DAILY albuterol sulfate 90 mcg/actuation HFA aerosol inhaler 1 inh inhalation QID Trulicity 4.5 mg/0.5 mL pen injector 4.5 mg subcut WE warfarin 10 mg tablet 10 mg PO MOWE@1800 Rx Instructions: on odd numbered days Interventions: ED Discharge Assessment Last Done: 02/18/23 01:54 Discharge Date/Time: 02/18/23 01:54
[2023-02-18 00:21] LABS: Alanine Aminotransferase 23 U/L (0-40); Albumin Level 3.7 g/dL (3.5-5.0); Alkaline Phosphatase 112 U/L (39-117); Anion Gap 14 (12-20); Aspartate Amino Transferase 26 U/L (5-37); Bilirubin Total 0.2 mg/dL (0.0-1.0); Blood Urea Nitrogen 15 mg/dL (9-16); Carbon Dioxide 25 mmol/L (22-29); Chloride 106 mmol/L (96-108); Creatinine Clr Calc Pharmacy 273.8; Estimated Glomerular Filt Rate > 60; Glucose Random 177 mg/dL (60-115); Potassium 4.6 mmol/L (3.3-5.1); Sodium 140 mmol/L (135-145); Total Protein 7.2 g/dL (6.5-8.0)
[2023-02-18 00:54] VITALS: BP 131/60; PULSE 82; RESP 18; TEMP 36.5; O2SAT 97
[2023-02-18 01:04] LABS: INTERNATIONAL NORM RATIO 1.6 (0.9-1.1); Prothrombin Time 18.8 SEC (10.0-13.1)
[2023-02-18] MEDS: Heparin Sodium,Porcine Flush 50 UNITS, 0.9 % Sodium Chloride Flush 5 ML IVFLUSH (01:50)
--- NOTE | 2023-02-18 01:51 | PC.NURSE ---
Midline dressing changed, flushed with 50 units of heparin as ordered. Pt tolerated well.
== END 2023-02-18 01:54 | disposition home or self-care (01) ==
PROVIDERS: Emergency Provider Internal Medicine; PCP Internal Medicine
DX: T82.594A Other mechanical complication of infusion catheter, initial encounter (principal); Y80.1 Therapeutic (nonsurgical) and rehabilitative physical medicine devices associated with adverse incidents; Y92.019 Unspecified place in single-family (private) house as the place of occurrence of the external cause; M86.9 Osteomyelitis, unspecified; E11.9 Type 2 diabetes mellitus without complications; I10 Essential (primary) hypertension; E78.5 Hyperlipidemia, unspecified; F17.210 Nicotine dependence, cigarettes, uncomplicated; Z89.421 Acquired absence of other right toe(s); Z89.029 Acquired absence of unspecified finger(s); Z79.4 Long term (current) use of insulin; Z79.899 Other long term (current) drug therapy; Z79.01 Long term (current) use of anticoagulants; Z79.02 Long term (current) use of antithrombotics/antiplatelets
CPT/HCPCS: 36415; 80053; 85027; 85610; 99282; 99283; J1642

== ENCOUNTER 2023-02-24 16:41 | Outpatient (REF) | payer OTHER, SELFPAY ==
[2023-02-24 16:46] LABS: MANUAL DIFF FLAG NO
[2023-02-24 16:59] LABS: Basophils Absolute Auto 0.1 X10*3/uL (0.0-0.2); Basophils Percent Auto 0.9 % (0-2); Eosinophils Absolute Auto 0.4 X10*3/uL (0.0-0.4); Eosinophils Percent Auto 3.8 % (0-4); Hematocrit 40.6 % (42.0-52.0); Hemoglobin 13.1 g/dl (14.0-18.0); Imm Gran Abs Auto 0.06 X10*3/uL (0.00-0.03); Imm Gran Pct Auto 0.6 % (0.0-0.4); Lymphocytes Absolute Auto 2.7 X10*3/uL (1.2-4.9); Lymphocytes Percent Auto 28.2 % (20-40); Mean Corpuscular HGB Conc 32.3 g/dl (31.0-36.0); Mean Corpuscular Hemoglobin 29.6 pg (27.0-33.0); Mean Corpuscular Volume 91.9 fL (80.0-98.0); Mean Platelet Volume 9.6 fL (9.4-12.4); Monocytes Absolute Auto 0.8 X10*3/uL (0.1-1.2); Monocytes Percent Auto 8.1 % (2-11); Neutrophils Absolute Auto 5.7 x10*3/uL (2.0-8.3); Neutrophils Percent Auto 58.4 % (45-73); Platelet Count 403 X10*3/uL (160-400); Red Blood Count 4.42 X10*6/uL (4.60-5.80); Red Cell Distribution Width 15.6 % (11.0-16.0); White Blood Count 9.7 X10*3/uL (4.8-10.8)
[2023-02-24 17:29] LABS: Anion Gap 16 (12-20); Blood Urea Nitrogen 14 mg/dL (9-16); Calcium 9.2 mg/dL (8.4-10.2); Carbon Dioxide 23 mmol/L (22-29); Chloride 104 mmol/L (96-108); Estimated Glomerular Filt Rate > 60; Glucose Random 135 mg/dL (60-115); Potassium 4.5 mmol/L (3.3-5.1); Sodium 138 mmol/L (135-145)
== END 2023-02-24 16:42 | disposition home or self-care (01) ==
LOC: HO.HVNA 16:41
PROVIDERS: Visit Provider Internal Medicine
DX: M86.9 Osteomyelitis, unspecified (principal); A49.01 Methicillin susceptible Staphylococcus aureus infection, unspecified site
CPT/HCPCS: 36415; 80048; 85025

== ENCOUNTER → 2023-02-26 11:10 | Outpatient (BNVA) | payer OTHER, SELFPAY | PROVIDERS: PCP Internal Medicine; Visit Provider Internal Medicine | DX: M86.671 Other chronic osteomyelitis, right ankle and foot (principal); E11.69 Type 2 diabetes mellitus with other specified complication; E11.621 Type 2 diabetes mellitus with foot ulcer; L97.419 Non-pressure chronic ulcer of right heel and midfoot with unspecified severity; B95.61 Methicillin susceptible Staphylococcus aureus infection as the cause of diseases classified elsewhere; R78.81 Bacteremia; Z79.899 Other long term (current) drug therapy | CPT/HCPCS: 99212 ==

== ENCOUNTER 2023-06-04 09:36 | Outpatient (AMB) | payer OTHER, SELFPAY ==
--- NOTE | 2023-06-04 10:00 | MHC.OFFWIV ---
Intake Vital Signs 06/04/23 10:01 Height 6 ft 5 in BP 140/62 H Blood Pressure Location Lt brachial Position Sitting Pulse 94 Pulse Source Pulse Oximeter Temp 97 F Temp Source Temporal Artery Scan Pulse Oximetry (%) 98 Oxygen Delivery Method Room Air Intake Visit Reasons: EST/Mouth pain Intake Note: Pt is here c/o mouth pain for the last week. Patient Tobacco Use Status: Current everyday Tobacco user Allergies No Known Allergies Allergy (Verified 06/04/23 10:01) Do you need a note to return to daycare/school/sports/work: No HPI HPI Comments History of Present Illness Details This is a 47-year-old male presenting to the office today for a sick visit. Patient reports right lower dental pain x3 days. He states he woke up this morning with a swollen right cheek. Patient called his dentist but he was unable to get an appointment until June 15. He denies any fevers or chills or other systemic symptoms. He is otherwise feeling well. He has been utilizing salt water gargles. [facility] Medical History Amputated finger Amputated toe of right foot Diabetes High cholesterol Hypertension Osteomyelitis Surgical History History of neck surgery Social History Household Members: Family Housing: House Do you presently have visiting nurse or other home services: Yes ([facility]) Alcohol intake: never Patient Tobacco Use Status: Current everyday Tobacco user Tobacco use type: Cigarette Cigarettes Per Day: 2 service: No Review of Systems Const All systems reviewed & are unremarkable except as noted in HPI and below Denies chills and Denies fever(s) Eyes Reports no additional complaints ENT Reports as per HPI Card Reports no additional complaints Resp Reports no additional complaints GI Reports no additional complaints Reports no additional complaints Musc Reports no additional complaints Skin/Breast Reports system reviewed and no additional complaints, except as documented Neuro Reports no additional complaints Psych Reports no additional complaints Endo Reports no additional complaints Rakesh/Lymph Reports no additional complaints Aller/Immun Reports no additional complaints Physical Exam Vital Signs: Last Vital Signs Temp 97 F 06/04/23 10:01 Pulse 94 06/04/23 10:01 BP 140/62 H 07/21/23 10:01 Pulse Ox 98 06/04/23 10:01 Oxygen Delivery Method Room Air 06/04/23 10:01 Const General: cooperative and no acute distress Orientation/consciousness: patient oriented x3 HEENT Face and sinus: Yes other (Right-sided cheek swelling) Teeth and gingiva: abnormal tooth and associated gingiva (Gingival edema and erythema of the right lower dentition.) lower right with associated gingival edema; without associated gingival fluctuance and caries Throat: Yes posterior oropharynx normal Resp Effort & Inspection: normal respiratory effort Cardio Rate: regular rate Rhythm: regular rhythm Skin General skin exam: no rashes or lesions noted Neuro General: patient oriented x3 Cranial nerves: Yes CN's II-XII intact bilaterally Psych Appearance: grossly normal Assessment & Plan Assessment & Plan (1) Gingivitis: Code(s): K05.10 - Chronic gingivitis, plaque induced Plan: This is a 47-year-old male who is presenting with right lower dental pain and right-sided cheek swelling. History and physical most consistent with acute gingivitis associated with dental caries. No fluctuance or induration to suggest dental abscess. Patient has an appointment scheduled with his dentist on June 15. Patient started on p.o. amoxicillin clavulanate 875-125 mg twice daily times 10 days. Recommended continuing saltwater gargles. Patient was advised to follow-up here or go to the emergency room if he were to develop fever/chills, systemic symptoms, worsening swelling, difficulty breathing/difficulty swallowing, or an abscess. Patient verbalizes his understanding and he is in agreement with the plan. Medications: New amoxicillin-pot clavulanate 875-125 mg 1 tab PO BID 20 tabs 0RF Coding Level of Care Code Est Pt Level 3 (25410) Diagnoses Gingivitis K05.10
[2023-06-04 10:01] VITALS: BP 140/62; PULSE 94; TEMP 36.1; O2SAT 98
== END 2023-06-04 10:22 | disposition home or self-care (01) ==
PROVIDERS: PCP Internal Medicine; Visit Provider Physician Assistant Medical
DX: K05.10 Chronic gingivitis, plaque induced (principal)
CPT/HCPCS: 99213

== ENCOUNTER 2023-09-07 14:28 | Outpatient (REF) | payer OTHER, SELFPAY ==
[2023-09-07 14:31] LABS: MANUAL DIFF FLAG NO
[2023-09-07 15:01] LABS: Basophils Absolute Auto 0.1 X10*3/uL (0.0-0.2); Basophils Percent Auto 0.9 % (0-2); Eosinophils Absolute Auto 0.4 X10*3/uL (0.0-0.4); Hematocrit 46.7 % (42.0-52.0); Hemoglobin 14.7 g/dl (14.0-18.0); Imm Gran Abs Auto 0.03 X10*3/uL (0.00-0.03); Imm Gran Pct Auto 0.3 % (0.0-0.4); Lymphocytes Absolute Auto 1.4 X10*3/uL (1.2-4.9); Lymphocytes Percent Auto 14.4 % (20-40); Mean Corpuscular HGB Conc 31.5 g/dl (31.0-36.0); Mean Corpuscular Hemoglobin 28.6 pg (27.0-33.0); Mean Corpuscular Volume 90.9 fL (80.0-98.0); Mean Platelet Volume 9.4 fL (9.4-12.4); Monocytes Absolute Auto 0.7 X10*3/uL (0.1-1.2); Monocytes Percent Auto 7.6 % (2-11); Neutrophils Absolute Auto 7.1 x10*3/uL (2.0-8.3); Neutrophils Percent Auto 72.8 % (45-73); Platelet Count 379 X10*3/uL (160-400); Red Blood Count 5.14 X10*6/uL (4.60-5.80); Red Cell Distribution Width 14.2 % (11.0-16.0); White Blood Count 9.8 X10*3/uL (4.8-10.8)
== END 2023-09-07 14:29 | disposition home or self-care (01) ==
LOC: HO.HVNA 14:28
PROVIDERS: Visit Provider Internal Medicine
DX: B99.9 Unspecified infectious disease (principal); Z79.2 Long term (current) use of antibiotics
CPT/HCPCS: 36415; 85025

== ENCOUNTER 2023-09-14 12:32 | Outpatient (REF) | payer OTHER, SELFPAY ==
[2023-09-14 12:36] LABS: MANUAL DIFF FLAG NO
[2023-09-14 12:39] LABS: Basophils Absolute Auto 0.1 X10*3/uL (0.0-0.2); Basophils Percent Auto 0.8 % (0-2); Eosinophils Absolute Auto 0.5 X10*3/uL (0.0-0.4); Eosinophils Percent Auto 4.9 % (0-4); Hematocrit 44.9 % (42.0-52.0); Imm Gran Abs Auto 0.05 X10*3/uL (0.00-0.03); Imm Gran Pct Auto 0.5 % (0.0-0.4); Lymphocytes Absolute Auto 2.1 X10*3/uL (1.2-4.9); Lymphocytes Percent Auto 19.4 % (20-40); Mean Corpuscular HGB Conc 31.2 g/dl (31.0-36.0); Mean Corpuscular Hemoglobin 28.5 pg (27.0-33.0); Mean Corpuscular Volume 91.4 fL (80.0-98.0); Mean Platelet Volume 9.8 fL (9.4-12.4); Monocytes Absolute Auto 0.9 X10*3/uL (0.1-1.2); Monocytes Percent Auto 8.8 % (2-11); Neutrophils Percent Auto 65.6 % (45-73); Platelet Count 257 X10*3/uL (160-400); Red Blood Count 4.91 X10*6/uL (4.60-5.80); Red Cell Distribution Width 14.7 % (11.0-16.0); White Blood Count 10.7 X10*3/uL (4.8-10.8)
== END 2023-09-14 12:33 | disposition home or self-care (01) ==
LOC: HO.HVNA 12:32
PROVIDERS: Visit Provider Internal Medicine
DX: B99.9 Unspecified infectious disease (principal)
CPT/HCPCS: 36415; 85025

== ENCOUNTER 2023-09-22 11:15 | Outpatient (REF) | payer OTHER, SELFPAY ==
[2023-09-22 11:23] LABS: MANUAL DIFF FLAG NO
[2023-09-22 11:32] LABS: Basophils Absolute Auto 0.1 X10*3/uL (0.0-0.2); Basophils Percent Auto 0.9 % (0-2); Eosinophils Absolute Auto 0.5 X10*3/uL (0.0-0.4); Eosinophils Percent Auto 5.5 % (0-4); Hematocrit 46.1 % (42.0-52.0); Hemoglobin 14.5 g/dl (14.0-18.0); Imm Gran Abs Auto 0.04 X10*3/uL (0.00-0.03); Imm Gran Pct Auto 0.4 % (0.0-0.4); Lymphocytes Absolute Auto 1.7 X10*3/uL (1.2-4.9); Lymphocytes Percent Auto 18.4 % (20-40); Mean Corpuscular HGB Conc 31.5 g/dl (31.0-36.0); Mean Corpuscular Hemoglobin 28.9 pg (27.0-33.0); Mean Corpuscular Volume 91.8 fL (80.0-98.0); Mean Platelet Volume 9.5 fL (9.4-12.4); Monocytes Absolute Auto 0.8 X10*3/uL (0.1-1.2); Monocytes Percent Auto 8.6 % (2-11); Neutrophils Absolute Auto 6.2 x10*3/uL (2.0-8.3); Neutrophils Percent Auto 66.2 % (45-73); Platelet Count 292 X10*3/uL (160-400); Red Blood Count 5.02 X10*6/uL (4.60-5.80); White Blood Count 9.4 X10*3/uL (4.8-10.8)
== END 2023-09-22 11:16 | disposition home or self-care (01) ==
LOC: HO.HVNA 11:15
PROVIDERS: Visit Provider Internal Medicine
DX: B99.9 Unspecified infectious disease (principal)
CPT/HCPCS: 36415; 85025

== ENCOUNTER 2023-09-27 14:54 | Outpatient (REF) | payer OTHER, SELFPAY ==
[2023-09-27 14:59] LABS: MANUAL DIFF FLAG NO
[2023-09-27 15:11] LABS: Basophils Absolute Auto 0.1 X10*3/uL (0.0-0.2); Basophils Percent Auto 1.2 % (0-2); Eosinophils Absolute Auto 0.3 X10*3/uL (0.0-0.4); Eosinophils Percent Auto 4.7 % (0-4); Hematocrit 45.9 % (42.0-52.0); Hemoglobin 14.8 g/dl (14.0-18.0); Imm Gran Abs Auto 0.02 X10*3/uL (0.00-0.03); Imm Gran Pct Auto 0.3 % (0.0-0.4); Lymphocytes Percent Auto 14.8 % (20-40); Mean Corpuscular HGB Conc 32.2 g/dl (31.0-36.0); Mean Corpuscular Hemoglobin 28.4 pg (27.0-33.0); Mean Corpuscular Volume 87.9 fL (80.0-98.0); Mean Platelet Volume 9.6 fL (9.4-12.4); Monocytes Absolute Auto 0.9 X10*3/uL (0.1-1.2); Monocytes Percent Auto 12.8 % (2-11); Neutrophils Absolute Auto 4.5 x10*3/uL (2.0-8.3); Neutrophils Percent Auto 66.2 % (45-73); Platelet Count 317 X10*3/uL (160-400); Red Blood Count 5.22 X10*6/uL (4.60-5.80); Red Cell Distribution Width 15.3 % (11.0-16.0); White Blood Count 6.8 X10*3/uL (4.8-10.8)
== END 2023-09-27 14:55 | disposition home or self-care (01) ==
LOC: HO.HVNA 14:54
PROVIDERS: Visit Provider Internal Medicine Infectious Disease
DX: T87.81 Dehiscence of amputation stump (principal)
CPT/HCPCS: 36415; 85025

== ENCOUNTER 2023-10-06 10:46 | Outpatient (REF) | payer OTHER, SELFPAY ==
[2023-10-06 14:39] LABS: Hematocrit 47.8 % (42.0-52.0); Hemoglobin 15.4 g/dl (14.0-18.0); Mean Corpuscular HGB Conc 32.2 g/dl (31.0-36.0); Mean Corpuscular Hemoglobin 28.9 pg (27.0-33.0); Mean Corpuscular Volume 89.7 fL (80.0-98.0); Mean Platelet Volume 9.5 fL (9.4-12.4); Platelet Count 206 X10*3/uL (160-400); Red Blood Count 5.33 X10*6/uL (4.60-5.80); White Blood Count 8.6 X10*3/uL (4.8-10.8)
== END 2023-10-06 10:47 | disposition home or self-care (01) ==
LOC: HO.HVNA 10:46
PROVIDERS: Visit Provider Internal Medicine Infectious Disease
DX: M86.171 Other acute osteomyelitis, right ankle and foot (principal); T87.81 Dehiscence of amputation stump
CPT/HCPCS: 36415; 85027